=== PATIENT | male | born 1955 | race Caucasian/White ===

== ENCOUNTER 2025-05-09 10:54 | Emergency (ER) | payer MEDICARE, MEDICAID, SELFPAY ==
--- OUTSIDE RECORDS SUMMARY | 2024-11-29 08:00 | XMS_ITS ---
Author Organization [facility] Servic es Address [address] [place] [address] Care Team Providers Care Padder Cushion Name Role Phone Dillon Gerald Primary Care Provider [phone] Denita Arias Unavailable [phone] REASON FOR VISIT 2 week f/u,DM CHECK Encounters Encounter Location Date Provider Diagnosis [facility] Services [address] [place] [address] 11/29/2024 Denita Arias Plan Of Treatment Next Appt Details Provider Name:Gerald Carranza, 06/08/2025 09:30:00 AM, [address] [place], [address], Progress Notes * PRAFUL ZENGOB:1955 (69 yo M)Acc No.[id number]:11/29/2024 Progress Notes Patient: BRITT SEGURA :?DENITA BLANCO DODOB:1955???Age:69 Y???Sex: MaleDate:11/29/2024Phone:[phone]:[address] BU-[id number]:Gerald Carranza Subjective: * Chief Complaints: * 2 week f/u,DM CHECK Billing Information: * Procedure Codes: * Electronic signature of Denita Arias DO on 05/09/2025 at 12:21 PM ESTSign off status: Pending * Provider: Carrol BLANCO, DO Date: 0 11/29/2024 Generated for Printing/Faxing/eTransmitting on:?05/09/2025 12:21 PM EST
--- OUTSIDE RECORDS SUMMARY | 2024-12-14 08:30 | XMS_ITS ---
Author Organization [facility] Servic es Address [address] [place] [address] Care Team Providers Care Refrigerated National Truck Driver Name Role Phone Dillon Gerald Primary Care Provider [phone] Denita Arias Unavailable [phone] REASON FOR VISIT HOSP f/u Encounters Encounter Location Date Provider Diagnosis [facility] Services [address] [place] [address] 12/14/2024 Denita Arias Plan Of Treatment Next Appt Details Provider Name:Gerald Carranza, 06/08/2025 09:30:00 AM, [address] [place], [address], Progress Notes * PRAFUL ZENGOB:1955 (69 yo M)Acc No.[id number]:12/14/2024 Progress Note Patient: BRITT SEGURA :?DENITA BLANCO DODOB:1955???Age:69 Y???Sex: MaleDate:12/14/2024Phone:[phone]:[address] [place]-[id number]:Gerald Carranza Subjective: * Chief Complaints: * H OSP f/u * Electronic signature of Denita Arias DO on 05/09/2025 at 12:22 PM ESTSign off status: Pending * Provider: Carrol BLANCO DO Date: 0 12/14/2024 Generated for Printing/Faxing/eTransmitting on:?05/09/2025 12:22 PM EST
--- OUTSIDE RECORDS SUMMARY | 2024-12-23 04:00 | XMS_ITS ---
Author Organization [facility] Serv[facility] Address [address] [place] [address] Care Team Providers Care Contact Clerk Name Role Phone Gerald Carranza Primary Care Provider Denita Arias Unavailable [phone] REASON FOR VISIT DM recheck Medications Medication SIG (Take, Route, Frequency, Duration) Notes Start Date End Date Status Ezetimibe 10 MG Tablet TAKE ONE TABLET BY MOUTH DAILY ActiveHumaLOG KwikPen 100 UNIT/ML Solution Pen- units Subcutaneous three times a day with [...] 28 daysActiveInsulin Glargine Solostar 100 UNIT/ML Solution Pen-ozucdhwp67 units Subcutaneous daily ActiveNystatin 885800 UNIT/ML Suspension4 mL Mouth/Throat Four times a dayActive Olopatadine HCl 0.2 % Solution1 drop into each eye Ophthalmic Once a day; Duration: 30 days5ActivePen [place] 5/16 31G X 8 MM MiscellaneousUSE ONE [...] dayActive Encounters Encounter Location Date Provider Diagnosis [facility] Services [address] [place] [address] 12/23/2024 Denita Arias Plan Of Treatment Next Appt Details Provider Name:Gerald Carranza, 06/08/2025 09:30:00 AM, [address] [place], [address], Progress Notes * PRAFUL ZENGOB:1955 (69 yo M)Acc No.[id number]:12/23/2024 Progress Notes Patient: BRITT SEGURA :?DENITA FRANCIS DODOB:1955???Age:69 Y???Sex: MaleDate:12/23/2024Phone:[phone]:[address], [place]-[id number]:Gerald Carranza Subjective: * Chief Complaints: * D [...] Solution Pen-injector 25 units Subcutaneous daily Pen [place] 5/16 31G X 8 MM Miscellaneous USE ONE NEEDLE TO INJECT INSULIN ONCE DAILY Olopatadine HCl 0.2 % Solution 1 drop into each eye Ophthalmic Once a day Nystatin 947693 UNIT/ML Suspension 4 mL Mouth/Throat Four times [...] Pen-injector 25 units Subcutaneous daily Taking Pen [place] 5/16 31G X 8 MM Miscellaneous USE ONE NEEDLE TO INJECT INSULIN ONCE DAILY Taking Olopatadine HCl 0.2 % Solution 1 drop into each eye Ophthalmic Once a day Taking Nystatin 293063 UNIT/ML Suspension 4 mL Mouth/Throat Four times [...] * Provider: Carrol BLANCO DO Date: 0 12/23/2024 Generated for Printing/Faxing/eTransmitting on:?05/09/2025 12:21 PM EST
--- OUTSIDE RECORDS SUMMARY | 2025-01-05 04:00 | XMS_ITS ---
Author Organization [facility] [place] Servic es Address [address] [place] [address] Care Team Providers Care Lead Pressman Name Role Phone Barb Carranzay Primary Care Provider [phone] Denita Arias Unavailable [phone] REASON FOR VISIT KANNAN MARYJANE Escamilla Encounters Encounter Location Date Provider Diagnosis [facility] [place] Services [address] [place] [address] 01/05/2025 Gerald Carranza Plan Of Treatment Next Appt Details Provider Name:Gerald Carranza, 06/08/2025 09:30:00 AM, [address] [place], [address], Progress Notes * PRAFUL ZENGOB:1955 (69 yo M)Acc No.[id number]:01/05/2025 Progress Notes Patient: BRITT SEGURA :?Gerald Chewshantel DODOB:1955???Age:69 Y???Sex:Male Date:01/05/2025Phone:[phone]:[address] [place] [place]-[id number] Subjective: * Chief Complaints: * T OC MARYJANE Escamilla * Electronic signature of Gerald Carranza DO on 05/09/2025 at 12:21 PM ESTSign off status: Pending * Provider: Joceline Carranza DO Date: 0 01/05/2025 Generated for Printing/Faxing/eTransmitting on:?05/09/2025 12:21 PM EST
--- OUTSIDE RECORDS SUMMARY | 2025-05-08 08:30 | XMS_ITS ---
Author Organization [facility] Address [address] [place] [address] Care Team Providers Care Song Plugger Name Role Phone Gerald Carranza Primary Care Provider Denita Arias Unavailable [phone] Allergies Allergen (clinical drug ingredient) Drug/Non Drug Allergy documented on EMR Reaction Allergy Type Onset Date Status semaglutide Ozempic stomach upset Drug Allergy ActivegabapentinGabapentinUnknownDrug AllergyActivemetforminMetforminUnknownDrug AllergyActivesulfacetamideSulfacetamideUnknownDrug AllergyActive REASON FOR VISIT Tremors, SOB while walking, loss of leg control, A1C-tm, all 3 have been going on for a couple month, cut finger 1week AGO Medications Medication SIG (Take, Route, Frequency, Duration) Notes Start Date End Date Status Melatonin 3 MG Tablet 1 tablet at bedtim e as needed Orally Once a day; Duration: 30 days ActiveEzetimibe 10 MG TabletTAKE ONE TABLET BY MOUTH DAILYActiveAtorvastatin Calcium 80 MG Tablet1 tablet Orally Once a dayActiveHumaLOG KwikPen 100 UNIT/ML Solution Pen-[id number] units Subcutaneous three times a day with meals; Duration: 30 daysActiveJardiance 25 MG TabletTAKE 1 TABLET BY MOUTH DAILYActive Insulin Glargine Solostar 100 UNIT/ML Solution Pen-hfettweq12 units Subcutaneous dailyActivePen Ingomar 516 31G X 8 MM MiscellaneousUSE ONE NEEDLE TO INJECT INSULIN ONCE DAILY; Duration: 30 daysActiveIsosorbide Mononitrate ER 120 MG Tablet Extended Release 24 HourOral; Duration: 30 DaysActiveLantus SoloStar 100 UNIT/ML Solution Pen-rbcfkohn03 units Subcutaneous dailyActiveFreeStyle Nan 14 Day Sensor - Miscellaneous1 sensor; Duration: 28 daysActiveMetoprolol Tartrate 50 MG Tablet1 tablet with food Orally Twice a dayonce dailyActiveXarelto 20 MG Tablet1 tablet with food Orally Once a dayActiveAmiodarone HCl 200 MG Tablet1 tablet Orally twice dailyonce dailyActiveMetoclopramide HCl 10 MG Tablet1 tablet before meals Orally three times a day; Duration: 30 day(s)ActiveClopidogrel Bisulfate 75 MG TabletTAKE 1 TABLET BY MOUTH DAILY FOR 7 DAYS; Duration: 7 Not-Taking/PRNCephalexin 500 MG Capsule1 capsule Orally every 6 hrs; Duration: 10 day(s)5ActiveDoxycycline Hyclate 100 MG Capsule1 capsule Orally Once a day; Duration: 10 days5ActiveNystatin 617376 UNIT/ML Suspension4 mL Mouth/Throat Four times a dayNot-Taking/PRNVitamin B12 100 MCG Tabletas directed OrallyNot-Taking/PRNEsomeprazole Magnesium 40 MG Capsule Delayed Release1 capsule 1/2 to 1 hour before morning meal Orally twice a dayActiveFreeStyle Nan 2 Sensor - Miscellaneousup to 3 times a day; Duration: 28 daysActiveNitroglycerin 0.4 MG Tablet Sublingualas directed SublingualNot-Taking/PRNOlopatadine HCl 0.2 % Solution1 drop into each eye Ophthalmic Once a day; Duration: 30 days11/03/2024Not-Taking/PRNBlood Glucose Test Strips 333 - Stripas directed In Vitro In Vitro; Duration: 90 days Requesting refill for OneTouch Ultra Test [id number] Social History Tobacco Use: Social History Observation Description Date Details (start date - stop date) Never Smoker NA - NA Social History GeneralSocial InfoQuestionAnswerNotesTransition of Care:ER/UC/hospital since last office visit?NoSpecialist seen since last office visit?NoSubstance abuse/mental health issues of patient/familyPatient -DeniesAbility to understand healthcare/treatmentPatient:GoodSocial/Support Concerns:Patient:NoBehaviors affecting healthPoor/Risky Behaviors:Denies-Communication Barrier:Language Barrier?:NoDrug/Alcohol:Social InfoQuestionAnswerNotesAUDIT-C (Standard)Did you have a drink containing alcohol in the past year?WnSbwdyg2NqpcxfkcqywxszGforhjyw Tobacco Use:Social InfoQuestionAnswerNotesTobacco Control (Standard)Tobacco use: Nonsmoker Vital Signs Temperature 97.8 degrees Fahrenheit 05/08/20 25 Blood pressure systolic 121 mm Hg 05/08/20 25 Blood pressure diastolic 81 mm Hg 025 Heart Rate 89 /min 05/08/2025 Respiratory Rate 18 /min 05/08/2025 Height 66.5 in 05/08/2025 Weight 169 lbs 05/08/2025 BMI 26.87 kg/m2 05/08/2025 Oximetry 97 % 05/08/2025 Encounters Encounter Location Date Provider Diagnosis [facility] [address] [place] [address] 05/08/2025 Gerald Carranza Abscess of finger of right hand L02.511 Assessments Encounter Date Diagnosis (ICD Code) Assessment Notes Treatment Notes Treatment Clinical Notes Section Notes 05/08/2025 Abscess of finger of right hand (ICD-10 - L02.511) Plan Of Treatment Medication Medication Name Sig Start Date Stop Date Notes Cephalexin 500 MG Capsule 1 capsule Oral ly every 6 hrs; Duration: 10 day(s) 05/08/2025 05/18/2025 Doxycycline Hyclate 100 MG Capsule1 capsule Orally Once a day; Duration: 10 days Pending Test Test Name Order Date XR finger RT 2nd digit 05/08/2025 XR hand RT min 3V* 05/08/2025 Next Appt Details Provider Name:Gerald Carranza, 06/08/2025 09:30:00 AM, [address], [place], [address], History and Physical Notes * HPI (History of Present Illness) CategorySub-CategoryDetailNotesCategory NotesDepression ScreeningPHQ-2 (2015 Edition)Little interest or pleasure in doing things?: Not at allFeeling down, depressed, or hopeless?: Not at allTotal Score: 0Constitutional A1c 10.7 in November 20 A1c today 10.7 Insulin 40 Lantus + 10 Humalog generalzied weakness, coordination, no vertigo, feeling winded, out of breath walking 2 miles instead 6 coordination no med changes recently Dad had Parkinson's younger age diagnosed in 30s R eye blurred vision globally - 2-3 months no painful EOMI eye doctor appt due no resting tremors intention tremors holding plates right pointer finger wound DIP podiatry next month 22 Dec Romberg wobbly Rapid alternating motions heel sherman no finger to nose off with right handwriting tremor right handed NEURO referral PT referral? Increase lantus to 45 and short acting THREE TIMES daily not once Progress Notes * PRAFUL ZENGOB:1955 (69 yo M)Acc No.[id number]:05/08/2025 Progress Notes Patient: BRITT SEGURA :?JOANNE DowOB:1955???Age:69 Y???Sex:Male Date:05/08/2025Phone:[phone]:[id number], [id number] Subjective: * Chief Complaints: * T remors, SOB while walking, loss of leg control, H5S-xhCnd 3 have been going on for a couple monthcut finger 1week AGO * HPI: ???Depression Screening:?PHQ-2 (2015 Edition)?Little interest or pleasure in doing things? Not at all ?Feeling down, depressed, or hopeless??Not at all ?Total Score?0 ???Constitutional:?A1c 10.7 in November 20 A1c today 10.7 Insulin 40 Lantus + 10 Humalog generalzied weakness, coordination, no vertigo, feeling winded, out of breath? walking 2 miles instead 6 coordination no med changes recently Dad had Parkinson's younger age diagnosed in 30s R eye blurred vision globally - 2-3 months no painful EOMI eye doctor appt due no resting tremors intention tremors holding plates right pointer finger wound DIP podiatry next month 22 Dec Romberg wobbly Rapid alternating motions heel sherman no finger to nose off with right handwriting tremor right handed NEURO referral PT referral? Increase lantus to 45 and short acting THREE TIMES daily not once. 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 exploratory lap - no findings ? EGD 1989? tonsillectomy ? Heart cath w 2 stents jul 2012? Heart Cath with placement of 2 more stents. 2013? Heart Cath with stent placement 03/2018? BIOPSY OF THE THROAT 06/2019? Cataract extraction-OD 08/2020? Heart stent placed 10/2023? Heart cath 12/07/24? Surgical History verified.? * Hospitalization/Major Diagno stic Procedure: took wrong DM medication 2009? Atrial Fib. 09/24/2016? CAD, Angina 03/2018? a fib 04/21? A FIB 05/22? A-FIB 05/2024? Hospitalization Verified.? * Family History: D aughter(s): alive. S on(s): alive. F ather: 62 yrs, head/neck cancer - , diagnosed with Diabetes. M other: , diagnosed with Hypertension. 1 sister(s) - healthy. 1 son(s) , 1 daughter(s) - healthy. . F amily History Verified.. Son had Stage 4 esophageal CA with mets to lungs,liver & lymph nodes. * Social History: ???Drug/Alcohol:?AUDIT-C (Standard)?Did you have a drink containing alcohol in the past year??No ?Points?0 ?Interpretation?Negative ???General:?Transition of Care?ER/UC/hospital since last office visit??No ?Specialist seen since last office visit??No ?Behaviors affecting health?Poor/Risky Behaviors:?Denies- ?Substance abuse/mental health issues of patient/family?Patient -?Denies ?Social/Support Concerns?Patient:?No ?Ability to understand healthcare/treatment?Patient:?Good ?Communication Barrier?Language Barrier?:?No ???Tobacco Use:?Tobacco Control (Standard)?Tobacco use:?Nonsmoker ???Social History Verified. * Medications: T akingEsomeprazole Magnesium 40 MG Capsule Delayed Release 1 capsule 1/2 to 1 hour before morning meal Orally twice a day Metoprolol Tartrate 50 MG Tablet 1 tablet with food Orally Twice a day , Notes to Pharmacist: once dailyXarelto 20 MG Tablet 1 tablet with food Orally Once a day Amiodarone HCl 200 MG Tablet 1 tablet Orally twice daily , Notes to Pharmacist: once dailyMetoclopramide HCl 10 MG Tablet 1 tablet before meals Orally three times a day Insulin Glargine Solostar 100 UNIT/ML Solution Pen-injector 25 units Subcutaneous daily Pen Ingomar 5/16 31G X 8 MM Miscellaneous USE ONE NEEDLE TO INJECT INSULIN ONCE DAILY Isosorbide Mononitrate ER 120 MG Tablet Extended Release 24 Hour Oral Lantus SoloStar 100 UNIT/ML Solution Pen-injector 35 units Subcutaneous daily FreeStyle Nan 14 Day Sensor - Miscellaneous 1 sensor Melatonin 3 MG Tablet 1 tablet at bedtime as needed Orally Once a day Ezetimibe 10 MG Tablet TAKE ONE TABLET BY MOUTH DAILY Atorvastatin Calcium 80 MG Tablet 1 tablet Orally Once a day HumaLOG KwikPen 100 UNIT/ML Solution Pen-injector 10 units Subcutaneous three times a day with meals Jardiance 25 MG Tablet TAKE 1 TABLET BY MOUTH DAILY Blood Glucose Test Strips 333 - Strip as directed In Vitro In Vitro , Notes to Pharmacist: Requesting refill for OneTouch Ultra Test StripsFreeStyle Nan 2 Sensor - Miscellaneous up to 3 times a day Taking Esomeprazole Magnesium 40 MG Capsule Delayed Release 1 capsule 1/2 to 1 hour before morning meal Orally twice a day Taking Metoprolol Tartrate 50 MG Tablet 1 tablet with food Orally Twice a day , Notes to Pharmacist: once dailyTaking Xarelto 20 MG Tablet 1 tablet with food Orally Once a day Taking Amiodarone HCl 200 MG Tablet 1 tablet Orally twice daily , Notes to Pharmacist: once dailyTaking Metoclopramide HCl 10 MG Tablet 1 tablet before meals Orally three times a day Taking Insulin Glargine Solostar 100 UNIT/ML Solution Pen-injector 25 units Subcutaneous daily Taking Pen Ingomar 5/16 31G X 8 MM Miscellaneous USE ONE NEEDLE TO INJECT INSULIN ONCE DAILY Taking Isosorbide Mononitrate ER 120 MG Tablet Extended Release 24 Hour Oral Taking Lantus SoloStar 100 UNIT/ML Solution Pen-injector 35 units Subcutaneous daily Taking FreeStyle Nan 14 Day Sensor - [...] three times a day with meals Taking Jardiance 25 MG Tablet TAKE 1 TABLET BY MOUTH DAILY Taking Blood Glucose Test Strips 333 - Strip as directed In Vitro In Vitro , Notes to Pharmacist: Requesting refill for OneTouch Ultra Test StripsTaking FreeStyle Nan 2 Sensor - Miscellaneous up to 3 times a day Not-Taking/PRNVitamin B12 100 MCG Tablet as directed Orally Clopidogrel Bisulfate 75 MG Tablet TAKE 1 TABLET BY MOUTH DAILY FOR 7 DAYS Nitroglycerin 0.4 MG Tablet Sublingual as directed Sublingual Olopatadine HCl 0.2 % Solution 1 drop into each eye Ophthalmic Once a day Nystatin 813965 UNIT/ML Suspension 4 mL Mouth/Throat Four times a day Medication List reviewed and reconciled with the patientNot-Taking/PRN Vitamin B12 100 MCG Tablet as directed Orally Not-Taking/PRN Clopidogrel Bisulfate 75 MG Tablet TAKE 1 TABLET BY MOUTH DAILY FOR 7 DAYS Not-Taking/PRN Nitroglycerin 0.4 MG Tablet Sublingual as directed Sublingual Not-Taking/PRN Olopatadine HCl 0.2 % Solution 1 drop into each eye Ophthalmic Once a day Not-Taking/PRN Nystatin 289238 UNIT/ML Suspension 4 mL Mouth/Throat Four times a day Medication List reviewed and reconciled with the patient * Allergies: S ulfacetamide: AllergyMetformin: Side EffectsGabapentin: AllergyOzempic: stomach upset - Side EffectsyesAllergies Verified. Objective: * Vitals: H t: 66.5 in, Wt: 169 lbs, BMI:26.87Index, Temp: 97.8 F, BP: 121/81 mm Hg, SaO2: 97 %, HR: 89 /min, RR: 18 /min. Assessment: * Assessment: 1.?Abscess of finger of right hand - L02.511 (Primary)??? Plan: * Treatment: Start Cephalexin Capsule, 500 MG, 1 capsule, Orally, every 6 hrs, 10 day(s), 40;?Start Doxycycline Hyclate Capsule, 100 MG, 1 capsule, Orally, Once a day, 10 days, 10.?Imaging: XR finger RT 2nd digit ?Imaging: XR hand RT min 3V* * Preventive Medicine: ??COUNSELING:?Communication to patient:?Counseling for Nutrition Provided?Yes ?Counseling for Physical Activity Provided?Yes ?BMI management provided?Yes ?Nutrition/Dietary Counseling provided Yes * Electronic signature of Gerald Carranza DO on 05/09/2025 at 12:22 PM ESTSign off status: Pending * Provider: Joceline Carranza DO Date: 07/08/2024 Generated for Printing/Faxing/eTransmitting on:?05/09/2025 12:22 PM EST
[2025-05-09 11:16] VITALS: BP 128/94; PULSE 82; TEMP 36.7; O2SAT 99; BMI 27.5
--- OUTSIDE RECORDS SUMMARY | 2025-05-09 12:22 | XMS_ITS | Clinical Summary ---
Author Organization [facility] Address [address] [place] [address] Phone Care Team Providers Care Associate Programmer Name Role Phone Bethanie Meza MD Unavailable Denita Escamilla Unavailable Generic Provider, No Assigned Pcp Primary Car e Provider Unavailable Allergies Active AllergyReactionsCriticalityNoted QapeYykboacaKywwkcwxjPtiok02/18/2024 nightmares KhnhyzuyfrItsvslr78/14/1366WmbomvrgmmxJoevc46/18/2024 nightmares MetforminDiarrhea,Adejtjg6309/09/2022Sulfa (Sulfonamide Antibiotics)Swelling, Rgibytm0010/12/2023 Medications MedicationSigDispense QuantityRefillsLast FilledStart DateEnd DateStatus empagliflozin (Jardiance) 25 mg Take 1 tablet (25 mg) by mouth once daily.Active metoclopramide (Reglan) 10 mg tablet Take 1 tablet (10 mg) by mouth 3 times a day.Active pantoprazole (ProtoNix) 40 mg EC tablet Take 1 tablet (40 mg) by mouth once daily in the morning. Take before meals. Do not crush, chew, orsplit.Active nitroglycerin (Nitrostat) 0.4 mg SL tablet Indications:Angina pectorisPlace 1 tablet (0.4 mg) under the tongue every 5 minutes if needed for chest pain. May repeat dose every 5 minutes for up to 3 doses total. 100 tablet ctive insulin glargine (Lantus U-100 Insulin) 100 unit/mL injection Inject 100 Units under the skin once daily at bedtime.Active dilTIAZem CD (Cardizem CD) 180 mg 24 hr capsule Indications:Coronary artery disease of [place] artery of [place] heart with stable angina pectorisTake 1 capsule (180 mg) by mouth once daily. 90 capsule ctive ezetimibe (Zetia) 10 mg tablet Indications:Mixed hyperlipidemiaTake 1 tablet (10 mg) by mouth once daily. 90 tablet ctive metoprolol succinate XL (Toprol-XL) 25 mg 24 hr tablet Indications:Essential hypertensionTake 1 tablet (25 mg) by mouth once daily. 5Active HumaLOG KwikPen Insulin 100 unit/mL pen Indications:Coronary artery disease involving coronary bypass graft of [place] heart with unstable angina pectoris (Multi)5Active isosorbide mononitrate ER (Imdur) 60 mg 24 hr tablet Indications:Unstable angina (Multi)Take 1 tablet (60 mg) by mouth once daily. Do not crush or chew. 90 tablet ctive aspirin 81 mg chewable tablet Indications:Coronary artery disease involving coronary bypass graft of [place] heart with unstable angina pectoris (Multi)Chew and swallow 1 tablet (81 mg) once daily. 90 tablet ctive cyanocobalamin (Vitamin B-12) 100 mcg tablet Take by mouth. as directedActive chlorhexidine (Peridex) 0.12 % solution Use 15 mL in the mouth or throat if needed for wound care.Active amiodarone (Pacerone) 200 mg tablet Indications:High risk medication use,Atrial fibrillation, currently in sinus rhythmTake 1 tablet (200 mg) by mouth once daily. 90 tablet ctive atorvastatin (Lipitor) 80 mg tablet Indications:Mixed hyperlipidemiaTake 1 tablet (80 mg) by mouth once daily. 90 tablet ctive rivaroxaban (Xarelto) 20 mg tablet Indications:Atrial fibrillation, currently in sinus rhythmTake 1 tablet (20 mg) by mouth once daily in the evening. Take with meals. Take with food. 90 tablet ctive Active Problems ProblemNoted DateDiagnosed DateAtherosclerotic heart disease of [place] coronary artery without angina crwcslec19/18/2025Rash due to ytbayqd0602/13/2025Encounter to discuss test gxlgxoa4601/30/2025MI 28.0-28.9,adult01/30/2025Maculopapular rash 01/30/2025Hospital discharge follow-up01/30/20253155Vbqkoantsxzjtt55/23/2025bnormal electrocardiogram (ECG) (EKG)11/18/2024trial fibrillation, currently in sinus nhlyot9307/29/2024MI 29.0-29.9,adult05/20/2024High risk medication use05/20/2024 Family history of atrial ucpmxdb3105/20/2024Medication course tqezeaq8005/20/2024 Atrial ztgutpl8105/20/2024oronary artery disease of [place] artery of [place] heart with stable angina djakfvhq85/18/2024 Assessment & Plan (01/29/2024 2:29 PM EDT): October 23, 2023 elective cardiac cath and subsequent coronary intervention PLB PCI/Gamerco 3.0 x 18 mm Mid RCA 50% Distal RCA patent stent Mid LAD questionable stent with 30-40% ISR Ostial/proximal diagonal 50% Circumflex patent stent OM2 75% Current daily activity greater than 4 METS. Presents to the office today where he reports finally back to normal after recent PCI. His prior complaints of fatigability and chest pain have abated. Assessment & Plan (12/16/2023 1:41 PM EDT): October 23, 2023 elective cardiac cath and subsequent coronary intervention PLB PCI/Gamerco 3.0 x 18 mm Mid RCA 50% Distal RCA patent stent Mid LAD questionable stent with 30-40% ISR Ostial/proximal diagonal 50% Circumflex patent stent OM2 75% Current daily activity greater than 4 METS. Continues to report fatigability and exertional chest pain after ambulating one quarter of a mile -although then later in the office visit reports he is walking 2 miles a day without any type of problem. Leg weakness, bbjhfqilc71/18/2024 Assessment & Plan (12/16/2023 1:42 PM EDT): Reports progressive worsening leg weakness, no real true claudication symptoms. No open wounds Figueroa's esophagus without itohwezsy46/27/2024resence of stent in coronary dexjrc2610/24/2023Shortness of wbnpts1710/24/2023Never smoked kdwwghi4610/15/2023 Etjbnbeoebdocu92/15/2024 Assessment & Plan (01/29/2024 2:28 PM EDT): Tolerating high intensity statin Assessment & Plan (12/16/2023 1:38 PM EDT): Tolerating high intensity statin Angina, class III10/12/2023 Assessment & Plan (12/16/2023 1:39 PM EDT): Continues with exertional chest pain symptoms after walking one quarter of a mile, is not utilizingnitroglycerin. Essential vemykvkvlafq33/15/2024 Assessment & Plan (01/29/2024 2:28 PM EDT): Optimal in office Assessment & Plan (12/16/2023 1:39 PM EDT): Optimal in office Type 2 diabetes mellitus, without long-term current use of wufsxdj9310/12/2023 Assessment & Plan (12/16/2023 1:41 PM EDT): On statin/ARB Reports most recent hemoglobin A1c 8 something Aortic valve puhefxyt44/15/2024Unstable hzmcjd8210/12/2023 Resolved Problems ProblemNoted DateDiagnosed DateResolved DateBMI 31.0-31.9,adult10/15/2023 05/20/2024 Assessment & Plan (01/29/2024 2:29 PM EDT): Reviewed the merits of healthy lifestyle choices on overall cardiovascular health. Assessment & Plan (12/16/2023 1:41 PM EDT): Reviewed the merits of healthy lifestyle choices on overall cardiovascular health. Angina pectoris, ugwisbzi77 Encounters DateTypeDepartmentCare WzflFupvtcgeuix66/28/2025[address] [place] [address] Yvrose Hogue LPN cardiac rehab02/13/2025 9:00 AM EDTOffice Visit [facility] [address] [facility] [address] [place] [address] Zahida Stern MD Coronary artery disease of [place] artery of [place] heart with stable angina pectoris (Primary Dx); Rash due to allergy; High risk medication use; Atrial fibrillation, currently in sinus rhythm; Anticoagulated; Mixed hyperlipidemia; Type 2 diabetes mellitus with other specified complication, without long-term current use of insulin (Multi); BMI 28.0-28.9,adult; Never smoked tobacco; Atherosclerosis of [place] coronary artery of [place] heart without angina pectoris Discharge Disposition: Home02/13/2025Travelfrom Last 3 Months Immunizations ImmunizationAdministration DatesNext DueFlu vaccine, trivalent, preservative free, HIGH-DOSE, age 65y+ (Fluzone)04/18/2024Influenza, injectable, quadrivalent 2Pneumococcal polysaccharide vaccine, 23-valent, age 2 years and older (PNEUMOVAX 23)06/29/2018 Family History Medical HistoryRelationNameCommentsNo Known ProblemsBrotherHeart attackFatherNo Known ProblemsMotherNo Known ProblemsSisterRelationNameStatusCommentsBrother FatherMotherSister Social History Tobacco UseTypesPacks/DayYears UsedDateSmoking Tobacco: NeverSmokeless Tobacco: Never Tobacco Cessation:Counseling Given: Yes Alcohol UseStandard Drinks/WeekCommentsYes0 (1 standard drink = 0.6 oz pure alcohol)occasionallySex and Gender InformationValueDate RecordedSex Assigned at BirthNot on fileLegal SffZzdz64/26/2022 6:36 PM ESTGender IdentityNot on file Sexual OrientationNot on file Last Filed Vital Signs Vital SignReadingTime TakenCommentsBlood Dkpvwblo739/6808 9:53 AM EDT Aesey955602/13/2025 9:53 AM HSAHuynoskmzmk91.9 ??C (96.6 ??F)10/23/2023 9:09 AM EDTRespiratory Unir660910/23/2023 12:50 PM EDTOxygen Qeyzjunzlc08%10/23/2023 12:50 PM EDTInhaled Oxygen Concentration--Qwnalp28.6 kg (171 lb)02/13/2025 9:53 AM EDT Fgjyux413.1 cm (5' 5 )02/13/2025 9:53 AM EDTBody Mass Index28.46002/13/2025 9:53 AM EDT Plan of Treatment DateTypeDepartmentCare Team (Latest Contact Info)Pcqxcdgfmwn42/19/2026 9:45 AM ESTOffice Visit [facility] [address] [facility] [address] [place] [address] Zahida Stern MD [address] [facility] [address] [place], [place] [id number] Health MaintenanceDue DateLast DoneCommentsCT Hpdakrhqxjwr57/29/1954iabetes: Hemoglobin A1C1953iabetes: Urine Protein Fsbwgmvtk67/29/1954FIT-DNA (Cologuard)1953FIT1953Lipid Panel1953Medicare Annual Wellness Visit (AWV)1955 3399Brehksygrvvpv63/29/1954TSH Level1953MMR Vaccines (1 of 1 - Standard series)1954Diabetes: Retinopathy Nspmzohml10/29/1964 Hepatitis C Janwjipvd62/29/1972DTaP/Tdap/Td Vaccines (1 - Tdap)1975RSV High Risk: (Elderly (60+) or Population) (1 - Risk 50-74 years 1-dose series)2003Zoster Vaccines (1 of 2)2003Pneumococcal Vaccine (2 of 2 - PCV)/06/2018Influenza Vaccine (#1)/, 06/25/2022, 05/10/2018, Additional history existsCOVID-19 Vaccine ( - season), 06/12/2021, 10/20/2020, Additional history exists EGD03/05/805928/10/2024, 10/17/20229108Fbnniscekgy24/06/203212/11/2021, 06/03/2022 Colorectal Cancer Kkjvoibnz64/06/2032Irritable Bowel SyndromeDiscontinued 06/03/2022HIB VaccinesAged OutNo longer eligible based on patient's age to complete this topicHPV VaccinesAged OutNo longer eligible based on patient's age to complete this topicHepatitis A VaccinesAged OutNo longer eligible based on patient's age to complete this topicHepatitis B VaccinesAged OutNo longer eligible based on patient's age to complete this topicIPV VaccinesAged OutNo longer eligible based on patient's age to complete this topicMeningococcal VaccineAged OutNo longer eligible based on patient's age to complete this topic Rotavirus VaccinesAged OutNo longer eligible based on patient's age to complete this topic Medical Devices ImplantedTypeAreaManufacturerDevice IdentifierShelf Expiration DateModel / Serial / LotStent, Jim [place] Herve, 3.00 X 18rx - [id number] Implanted:Qty: 1 on 10/23/2023 by Zahida Stern MD at [facility] StentN/A: CoronaryMEDTRONIC [id number] / / [id number] Procedures Procedure NamePriorityDate/TimeAssociated DiagnosisCommentsECG 12-LEADRoutine 02/13/2025 9:32 AM EDT Atrial fibrillation, currently in sinus rhythm from Last 3 Months Results * ECG 12 Lead (02/13/2025 9:32 AM EDT)Specimen (Source)Anatomical Location / LateralityCollection Method / VolumeCollection TimeReceived Time Narrative CPACS - 02/14/2025 12:20 PM EDT Normal sinus rhythm abnormal R wave progression, anterior myocardial infarction pattern, normal intervals. ??No change compared to the EKG from 11/18/2024 Authorizing ProviderResult TypeResult StatusGeethrosalba BURCIAGA ORDERABLESFinal ResultPerforming OrganizationAddressCity/State/ZIP CodePhone Number CPACS from Last 3 Months Insurance Advance Directives For more information, please contact: [phone] (Available ) * Full Code (Latest Code Status on File) Date ActivatedDate InactivatedComments10/23/2023 8:54 AMQuestionAnswerComments Plan of Care:* Code Status Discussion Not Completed Decision Maker:* Provider Rationale:* Patient condition does not warrant discussion Care Teams Team MemberRelationshipSpecialtyStart DateEnd Date Generic Provider, No Assigned Pcp, [place] [address] PCP - GeneralGeneral Practice11/18/24 Bethanie Meza MD [address] [facility] [address], [address] [place] [address] CardiologistElectrophysiology07/22/24 Denita Escamilla [address] [place] [address] Referring PhysicianFamily Medicine07/25/24
--- OUTSIDE RECORDS SUMMARY | 2025-05-09 12:22 | XMS_ITS | Clinical Summary ---
Author Organization [facility] Address [facility] [place] [address] Care Team Providers Care Awake Overnight Counselor Name Role Phone Orville Friedman DO Primary Care Provider [phone] Sherice [place](Historical) Unavailable + Lavonne Sarabia MD Unavailable [phone] Denita Escamilla DO Unavailable [phone] Allergies Active AllergyReactionsCriticalityNoted DateCommentsSulfa (Sulfonamide Antibiotics)Rwnuqgto38/01/2015 blew up like a balloon Medications MedicationSigDispense QuantityRefillsLast FilledStart DateEnd DateStatus Fenofibrate (LOFIBRA) 160 mg tablet Take 1 tablet by mouth once daily.ctive aspirin, enteric coated (ASPIR-LOW) 81 mg EC tablet Take 1 tablet by mouth once daily.ctive Omeprazole (PRILOSEC) 40 mg capsule Take 1 capsule by mouth once daily.ctive losartan (COZAAR) 100 mg tablet Take 1 tablet by mouth once daily.ctive metFORMIN (GLUCOPHAGE) 500 mg tablet Take 1 tablet by mouth twice daily.ctive empagliflozin (JARDIANCE) 25 mg tablet Take 1 tablet by mouth once daily.09/01/2019Active olmesartan (BENICAR) 20 mg tablet Take 20 mg by mouth once daily.Active Active Problems ProblemNoted DateDiagnosed DatePatellofemoral arthritis of right knee02/29/2020 Closed displaced bimalleolar fracture of right lower leg with routine healing 03/18/2016Closed right ankle ppowjhwq42/10/2016Strain of right knee and leg 12/07/2015Intradural mass12/07/20155786Rpegelrrdiey72/01/2015SHD (arteriosclerotic heart disease)09/27/2014Type II or unspecified type diabetes mellitus with other specified manifestations, ampostwijenh67/01/5574Pdkchypewboakdkkmzav52/01/2015 Difmdwndbxmz58/01/7850Muzwvtf84/01/2015Diabetes mellitusGERD (gastroesophageal reflux disease)Former smoker Overview (12/07/2015): smoked cigars rarely Family History Medical HistoryRelationCommentsCancerFatherdied at age 62HypertensionFatherCHF [Other]Motherdied at age 95RelationStatusCommentsFatherMother Social History Tobacco UseTypesPacks/DayYears UsedDateSmoking Tobacco: FormerCigars Tobacco Cessation:Counseling Given: Not Answered Comments:cigar smoking on occasion Alcohol UseStandard Drinks/WeekCommentsYes0 (1 standard drink = 0.6 oz pure alcohol)socialArea Deprivation IndexAnswerDate RecordedNational Score (1-100), lower number is lower qhnw168903/04/2023State Score (1-10), lower number is lower ouje9193Data from: https://www.neighborhoodatlas.medicine.[facility].edu/. 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 businessNot on fileNot on fileNot on file Last Filed Vital Signs Vital SignReadingTime TakenCommentsBlood Wjoukpbq498/6606/16/2023 10:50 AM EST Wnoup439406/16/2023 10:50 AM VRDNzguhxoeegv41.5 ??C (97.7 ??F)06/16/2023 9:41 AM ESTRespiratory Zjov798408/17/2022 10:50 AM ESTOxygen Jhmcoelptb92%06/16/2023 10:50 AM ESTInhaled Oxygen Concentration--Teevws64.4 kg (175 lb)06/16/2023 9:41 AM PAGLuiytj627.1 cm (5' 5 )06/16/2023 9:41 AM ESTBody Mass Index29.12108/17/2022 9:41 AM EST Plan of Treatment Health MaintenanceDue DateLast DoneCommentsAbdominal Aortic Aneurysm Screening 1953 8398GoI4J94/29/1959Diabetic Foot Exam1963Dilated Retinal Exam 1963Urine Albumin:Creatinine Ratio1963Annual PCP Team Chronic Disease Visit1971Anxiety Lgcxymcwx91/29/1972Depression Dldwfjpsd40/29/1972 Hepatitis C Ockzaqeyj64/29/1972LDL Cgounqtplyw34/29/1972DTaP,Tdap,Td Vaccine (1 - Tdap)1972CT Osksepeqqfyv03/29/1999Cologuard (FIT-DNA)1998 Tqukfwzzkdm72/29/1999Colorectal Cancer Kkcnjczaw26/29/1999Fecal Occult Blood 07/27/19980103Ohkuzoteexieg79/29/1999Shingrix Vaccine (1 of 2)2003RSV Vaccine (1 - Risk 60-74 years 1-dose series)2013Pneumococcal Vaccine: 50+ (2 of 2 - PCV)Advance Directive Hggatsmnlb69/01/2025Medicare Advantage Annual Wellness Visit5Covid-19 Vaccine ( - 2024- season) 5108/13/2020, 10/20/2020, 09/22/2020Influenza Vaccine (#1)2025 06/25/2022, 05/10/2018, 04/10/2016 Insurance Care Teams Team MemberRelationshipSpecialtyStart DateEnd Orville Friedman DO PCP - GeneralFamily Medicine11/18/15 Sherice Washington(Historical)MD ReferringFamily Medicine11/26/18 Lavonne Sarabia MD ReferringFamily Medicine02/16/20 Denita Escamilla DO [address] [place] [address] ReferringFamily Medicine02/09/23
--- OUTSIDE RECORDS SUMMARY | 2025-05-09 12:22 | XMS_ITS | Clinical Summary ---
Author Organization [facility] Address [address] [place] [address] Care Team Providers Care Brake Operator Helper Name Role Phone Orville Friedman DO Primary Care Provider [phone] Allergies Active AllergyReactionsCriticalityNoted ZwjtTectgedxSamhbvokjuPdryvia06/13/2023 BehfuqoqoSfpioqh26/13/2023Sulfa RltwqvdmhmcApeyStg95/18/2023 Medications MedicationSigDispense QuantityRefillsLast FilledStart DateEnd DateStatus atorvastatin (Lipitor) 80 MG tablet Take 80 mg by mouth 1 (one) time each day at the same time.Active diclofenac sodium 1 % gel Apply 2 g topically in the morning and 2 g at noon and 2 g in the evening and 2 g before bedtime.09/29/2022ctive dilTIAZem CD (Cartia XT) 120 MG 24 hr capsule Take 1 capsule by mouth 1 (one) time each day at the same time.Active doxycycline (Vibramycin) 100 MG capsule Take 100 mg by mouth in the morning.12/17/2022ctive Jardiance 25 MG Take 25 mg by mouth in the morning.12/21/2022ctive escitalopram (Lexapro) 10 MG tablet Take 10 mg by mouth 1 (one) time each day at the same time.Active ezetimibe (Zetia) 10 MG tablet Take 10 mg by mouth 1 (one) time each day at the same time.Active hydroCHLOROthiazide (HYDRODiuril) 25 MG tablet Take 25 mg by mouth 1 (one) time each day at the same time.Active Lantus 100 UNIT/ML injection Inject 100 Units under the skin 1 (one) time each day at the same time.Active losartan (Cozaar) 100 MG tablet Take 100 mg by mouth 1 (one) time each day at the same time.Active metoprolol tartrate (Lopressor) 50 MG tablet Take 50 mg by mouth every 12 (twelve) hours.Active metoclopramide (Reglan) 10 MG tablet every 8 (eight) hours.Active olmesartan (BENIcar) 20 MG tablet 1 (one) time each day at the same time.Active ondansetron (Zofran) 4 MG tablet 1 tabletActive pantoprazole (ProtoNix) 40 MG EC tablet Take 1 tablet by mouth in the morning.Active pioglitazone (Actos) 30 MG tablet Take 1 tablet by mouth in the morning.Active Ozempic, 2 MG/DOSE, 8 MG/3ML solution pen-injector 12/20/2022ctive busPIRone (Buspar) 7.5 MG tablet every 12 (twelve) hours08/10/2023ctive Continuous Blood Gluc Sensor (FreeStyle Nan 2 Sensor) [facility] [place] 08/10/2023ctive hydrOXYzine HCl (Atarax) 25 MG tablet 1 tablet as needed at bedtime Orally for 30 days08/10/2023ctive tacrolimus (Protopic) 0.03 % ointment Indications:Flexural atopic dermatitisApply topically in the morning and before bedtime. Apply to the face. 60 g ctive Active Problems No known active problems Resolved Problems ProblemNoted DateDiagnosed DateResolved DateAcquired hallux kqnnda8503/25/2023 03/25/2023trial ajchnnfrsvmk95arrett's hboyrhjsg90/27/2023 03/25/2023lindness of left eyehange in bowel habits hanges in skin csnnrel68hronic oszqltjoruvs10hronic hqkihkva35iabetes lwsqrlum01iabetic mszyunnapu75iabetic peripheral neuropathy associated with type 2 diabetes enchdgug72/27/2023 03/25/20230167Rvubvznxe31Former vidqwk72 Overview (03/25/2023): smoked cigars rarely Gastroesophageal reflux gtbspzv61astroparesis03/25/2023 03/25/2023eneralized anxiety sckxbabo57Insomnia03/25/2023 03/25/2023Long term current use of nxigkia22Memory impairment 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 bimalleolar fracture of right lower leg with routine tikldss13 Intradural massrteriosclerosis of coronary wgyjti0209/27/2014 03/25/20236373Mccitrdtglkt88Essential rakuegyrtdnr63/01/2015 03/25/20230056Zwxndku41 Encounters DateTypeDepartmentCare KgfgFxuwnomnglk60/30/2025 9:20 AM EDTOffice Visit [facility] [address] [place] [address] Ifeanyi Norris DPM Capsulitis of metatarsophalangeal (MTP) joint of right foot (Primary Dx); Metatarsal deformity, right; Acquired deformity of right toe; Plantar plate injury, right, initial encounter; Diabetes mellitus due to underlying condition with diabetic polyneuropathy, unspecified whether care home insulin use (HCC); Pain due to onychomycosis of toenails of both feet03/28/2025amboo flowsheet [facility] [address] [place] [address] Ifeanyi Norris DPM 03/23/2025 9:20 AM EDTOffice Visit [facility] [address] [place] [address] Simon Butler MD Xerosis cutis (Primary Dx); Flexural atopic dermatitis; Chronic eikinpip06/25/2025amboo flowsheet [facility] [address] [place] [address] Simon Butler MD 03/23/20251372Mssbek89/28/2025 9:00 AM EDTOffice Visit [facility] [address] [place] [address] Simon Butler MD Flexural atopic dermatitis (Primary Dx); Chronic zawwmwlm60/28/2025amboo flowsheet [facility] [address] [place] [address] Simon Butler MD 02/23/2025Travelfrom Last 3 Months Family History Medical HistoryRelationNameCommentsHeart diseaseFatherHypertensionMotherRelation NameStatusCommentsFatherDeceasedMotherDeceased Social History Tobacco UseTypesPacks/DayYears UsedDateSmoking Tobacco: NeverSmokeless Tobacco: Never Tobacco Cessation:Counseling Given: Yes Alcohol UseStandard Drinks/WeekCommentsYes0 (1 standard drink = 0.6 oz pure alcohol)caffeine intake:soda popSex and Gender InformationValueDate RecordedSex Assigned at BirthNot on fileLegal EkcTdqj1709/10/2022 6:48 PM EDTGender Identity Not on fileSexual OrientationNot on file Last Filed Vital Signs Vital SignReadingTime TakenCommentsBlood Bhwmydge682/8009 3:23 PM EDT Gnjue1604 3:23 PM DEAAkygkxwqrxh21.2 ??C (97.1 ??F)08/06/2023 10:42 AM ESTRespiratory Dzlm316503/28/2025 9:14 AM EDTOxygen Saturation--Inhaled Oxygen Concentration--Gpwhmd47.5 kg (173 lb)03/28/2025 9:14 AM IEMDrygcr744.1 cm (5' 5 )03/28/2025 9:14 AM EDTBody Mass Index28.7903/28/2025 9:14 AM EDT Plan of Treatment DateTypeDepartmentCare Team (Latest Contact Info)Qjfaxexqaba50/17/2025 9:40 AM ESTOffice Visit [facility] [address] [place] [address] Simon Butler MD [address] [place] [address] 06/20/2025 9:00 AM ESTOffice Visit [facility] [address] [place] [phone] Ifeanyi Norris DPM [address] [facility] [address] [place] [address] Health MaintenanceDue DateLast DoneCommentsCT Mkxrqivnoqet63/29/1954FIT-DNA 1953FIT1953FOBT1953Bpikylczgenkw88/29/1954neumococcal Vaccine: 65+ Years (2 of 2 - PCV)/06/2018COVID-19 Vaccine ( season)/, 06/12/2021, 10/20/2020, Additional history existsInfluenza Vaccine (#1)/, 06/25/2022, 05/10/2018, Additional history feancgCjhisicvska27/06/203212/2Colorectal Cancer Tlaxthegx73/06/2032 Procedures Procedure NamePriorityDate/TimeAssociated DiagnosisCommentsCOLONOSCOPYRoutine 06/03/2022 12:00 PM EST Other constipation Personal history of colonic polyps Change in bowel habit from Last 3 Months or Most Recently Relevant to Health Maintenance Results * Colonoscopy (06/03/2022 12:00 PM EST)Anatomical RegionLateralityModality EndoscopySpecimen (Source)Anatomical Location / LateralityCollection Method / VolumeCollection TimeReceived Time12/11/2021 12:00 PM EST Narrative 06/03/2022 12:00 PM EST PERFORMED AT [facility] LOCATION:[id number] Procedure Note CONVERSION, GENERIC - 11/12/2022 PERFORMED AT [facility] LOCATION:[id number] Authorizing ProviderResult TypeResult StatusPaul Leandro Wilkins DOENDOSCOPY PROCEDURE ORDERABLESFinal Result from Last 3 Months or Most Recently Relevant to Health Maintenance Insurance Care Teams Team MemberRelationshipSpecialtyStart DateEnd Date Orville Friedman DO [address] [place] [address] [facility]01/13/23
--- OUTSIDE RECORDS SUMMARY | 2025-05-09 12:22 | XMS_ITS | Patient Health Record ---
Author Organization [facility] Address [address] [place] [address] Care Team Providers Care Solution Designer Name Role Phone Gerald Carranza Primary Care Provider [phone] Denita Arias Unavailable [phone] Diego Saldana Unavailable [phone] Allergies Allergen (clinical drug ingredient) Drug/Non Drug Allergy documented on EMR Reaction Allergy Type Onset Date Status semaglutide Ozempic stomach upset Drug Allergy ActivegabapentinGabapentinUnknownDrug AllergyActivemetforminMetforminUnknownDrug AllergyActivesulfacetamideSulfacetamideUnknownDrug AllergyActive Results Component Value Reference Range Flag Notes MicroAlb Creat Ratio,U Reviewed date:11/15/2024 08:45:30 PM Interpretation: Performing Lab:, [facility], [address] Notes/Report: Reason for Exam Type 2 diabetes mellitus with unspecified complications Microalbumin, Urine 1.5 0.0-1.8 mg/dL N Creatinine, Urine (Random)30.00No reference range established Microalbumin/Creatinine Ratio50.00.0-30.0 mg/gH 30-300 mg/g indicates an increased risk for diabetic nephropathy. Greater than 300 mg/g is consistent with clinical nephropathy. (Am. J. Kidney Disease 1995, 25:107) A1C with Estimated Average Glu Reviewed date:11/16/2024 10:48:33 AM Interpretation: Performing Lab:, [facility], [address] Notes/Report: Reason for Exam Type 2 diabetes mellitus with unspecified complicationsHemoglobin A1C10.74.3-5.6 %H Increased risk for diabetes: 5.7 - 6.4 diabetes: >6.4 glycemic control for adults with diabetes: <7.0 Estimated Average Krktjsy415Xjcnfwnm Blood Count Auto Diff Reviewed date:11/15/2024 08:45:23 PM Interpretation: Performing Lab:, [facility], [address] , [place] Notes/Report: Reason for Exam Type 2 diabetes mellitus with unspecified complicationsWhite Blood Count4.54.1-10.5 10*3/uLNUncorrected WBC4.54.1-10.5 10*3/uLNRed Blood Count5.083.90-5.60 10*6/bKEMkhweaxvuj05.813.0-17.0 g/dLN Uwwtxhstvi81.138.8-50.0 %NMean Corpuscular Yxrbcy58.683.5-101 fLNMean Corpuscular Povxngldjb92.127.5-35.2 pgNMean Corpuscular HGB Conc32.932.5-35.6 g/dLNRed Cell Distribution Width14.812.0-14.8 %NPlatelet Tpxgc379350-689 10*3/uL NMean Platelet Opqhjq02.76.6-10.1 fLHNeutrophils % (Auto)60.0. %Lymphocytes % (Auto)25.3. %Monocytes % (Auto)11.7. %Eosinophils % (Auto)2.5. %Basophils % (Auto)0.5. %NRBC%0.10-0.5 /100{WBC}NNeutrophils # (Auto)2.71.8-7.7 10*3/uLN Lymphocytes # (Auto)1.11.00-4.8 10*3/uLNMonocytes # (Auto)0.50.0-0.8 10*3/uLN Eosinophils # (Auto)0.10.0-0.45 10*3/uLNBasophils # (Auto)0.00.0-0.2 10*3/uLNLDL Cholesterol Measured Reviewed date:11/15/2024 08:44:50 PM Interpretation: Performing Lab: Notes/Report: Reason for Exam Type 2 diabetes mellitus with unspecified complications Reason for Exam Mixed hyperlipidemia Reason for Exam History of atrial fibrillationLDL Cholesterol Eapecedm058-194 mg/dLN LDL ATP III CLASSIFICATION LDL less than 100 mg/dL Optimal LDL 100-129 mg/dL Near or above optimal LDL 130-159 mg/dL Borderline high LDL 160-189 mg/dL High LDL greater than 189 mg/dL Very high PSA Screen (Yearly) w/Reflex Reviewed date:11/15/2024 08:44:54 PM Interpretation: Performing Lab:, [facility], [place] Notes/Report: Reason for Exam Prostate cancer screeningPSA Screen (Yearly) w/Reflex0.6600.000- 4.000 ng/mLN Serial tumor marker results determined by assays using different manufacturers or methods may not be comparable. [facility] senior project controls specialist and method: ClickN KIDS DXI, CHEMILUMINESCENT IMMUNOASSAY. Urinalysis Reviewed date:12/05/2024 08:26:45 AM Interpretation: Performing Lab:, [facility], [place] Notes/Report: Name Collection Type:: Clean-Voided MidstreamColor,UrineLight-YellowYellow Appearance,UrineClearClearSpecificy [place],Urine1.0291.001-1.030NpH,Urine5.5 5.0-9.0NLeukocyte Esterase,UrineNegativeNegativeNitrite,UrineNegativeNegative Protein,UrineNegativeNegativeGlucose,Urine (UA)>=1000Normal mg/dLHKetones,Urine NegativeNegativeUrobilinogen,UrineNormalNormalBilirubin,UrineNegativeNegative Occult Blood,UrineNegativeNegativeBasic Metabolic Panel Reviewed date:12/05/2024 08:26:28 AM Interpretation: Performing Lab:, [facility], [place] Notes/Report:Qrcunev73871-225 mg/dLH Random Glucose Reference Range is dependent on time and content of last meal. Glucose of more than 200 mg/dL in a nonstressed, ambulatory subject supports the diagnosis of Diabetes Mellitus. ADA recommended reference range Blood Urea Ylxqogbh352-73 mg/uBCUgvmtl322926-828 mmol/LNPotassium4.03.5-5.1 mmol/LN Hemolysis is present at a level that could interfere with the result. Contact lab if redraw is required Qlijxamj70344-859 mmol/LNCarbon Yjcvpgg93.221.0-31.0 mmol/LNCalcium9.18.6-10.3 mg/dLNCreatinine0.900.70-1.30 mg/dLNEstimated GFR>60.0Anion Gap11.86.0-15.0 meq/LNCreatinine Clr Calc Zcafymdc24.94B-Type Natriuretic Peptide Reviewed date:12/05/2024 08:26:15 AM Interpretation: Performing Lab:, [facility], [address] [place] Notes/Report:B-Type Natriuretic Mnhdrmx91.05-100 pg/mLNCreatine Kinase Reviewed date:12/05/2024 08:26:33 AM Interpretation: Performing Lab:, [facility], [address] [place] Notes/Report:Creatine Ruzuoy21265-176 U/LNProthrombin Time INR Reviewed date:12/05/2024 08:26:10 AM Interpretation: Performing Lab:, [facility], [address] [place] Notes/Report: REDRAW: PRIOR SAMPLE QNSProthrombin Time11.29.0-12.9 sN A hematocrit value greater than 55% may lead to inaccurate results in coagulation testing. Patients having hematocrit values >55% require a special collection tube for coagulation studies. Please contact the laboratory at [phone] for redraw instructions. INR1.0 INR Therapeutic Range A) Pre- and Peroperative OAT started two weeks before surgery. NOT HIP SURGERY: 1.5 - 2.5 HIP SURGERY: 2 - 3 B) Primary and secondary prevention of venous THROMBOSIS: 2 - 3 C) Active venous thrombosis, pulmonary embolism and prevention of recurrent venous thrombosis: 2 - 3 D) Prevention of arterial thromboembolism including patients with mechanical heart valves: 3 - 4.5 Complete Blood Count Auto Diff Reviewed date:12/05/2024 08:26:40 AM Interpretation: Performing Lab:, [facility], [address] [place] Notes/Report:White Blood Count4.74.1-10.5 10*3/uLNUncorrected WBC4.74.1-10.5 10*3/uLNRed Blood Count4.863.90-5.60 10*6/wBTCcmfilbiiw90.313.0-17.0 g/dLN Obryahwkqm08.738.8-50.0 %NMean Corpuscular Iutzai27.183.5-101 fLNMean Corpuscular Umsovxobsl02.427.5-35.2 pgNMean Corpuscular HGB Conc33.432.5-35.6 g/dLNRed Cell Distribution Width14.312.0-14.8 %NPlatelet Bhkhf083299-698 10*3/uL NMean Platelet Volume9.66.6-10.1 fLNNeutrophils % (Auto)57.7. %Lymphocytes % (Auto)28.2. %Monocytes % (Auto)11.2. %Eosinophils % (Auto)2.0. %Basophils % (Auto)0.9. %NRBC%0.10-0.5 /100{WBC}NNeutrophils # (Auto)2.71.8-7.7 10*3/uLN Lymphocytes # (Auto)1.31.00-4.8 10*3/uLNMonocytes # (Auto)0.50.0-0.8 10*3/uLN Eosinophils # (Auto)0.10.0-0.45 10*3/uLNBasophils # (Auto)0.00.0-0.2 10*3/uLN Monocyte Distribution Width18.950.00-20.00 %NTroponin I High Sensitivity Reviewed date:12/05/2024 08:26:23 AM Interpretation: Performing Lab: Notes/Report: The Troponin units of report have been changed to meet the Chest Pain Accreditation requirement, element EC5.M1l2. Troponin units are changed from pg/ml to ng/L. Also, the decimal is removed and results are in whole numbers.Troponin I High Sensitivity6 0-20NCreatine Kinase Reviewed date:12/21/2024 09:14:33 PM Interpretation: Performing Lab:, [facility], [address] Notes/Report:Creatine Ndapdx7453-567 U/LNComprehensive Metabolic Panel Reviewed date:12/21/2024 09:14:39 PM Interpretation: Performing Lab:, [facility], [address] [place] Notes/Report:Hgyjnok76217-174 mg/dLH Random Glucose Reference Range is dependent on time and content of last meal. Glucose of more than 200 mg/dL in a nonstressed, ambulatory subject supports the diagnosis of Diabetes Mellitus. ADA recommended reference range Blood Urea Bkbrmbhd850-46 mg/dLNCreatinine1.040.70-1.30 mg/kAXMuuhny087470-653 mmol/LNPotassium4.13.5-5.1 mmol/PVDtgntqjv74275-212 mmol/LNCarbon Jmqeqxm19.9 21.0-31.0 mmol/LNCalcium8.88.6-10.3 mg/dLNTotal Protein6.86.4-8.9 g/dLNAlbumin Level4.13.5-5.7 g/dLNGlobulin2.7Albumin/Globulin Ratio1.5Bilirubin,Total0.70.3- 1.0 mg/dLNAspartate Amino Adehrcqyyod9198-87 U/LNAlanine Efxzhuvedaqikgqf825-63 U/LNAlkaline Bchbiulkfwz3486-828 U/LNEstimated GFR>60.0Anion Gap10.26.0-15.0N Creatinine Clr Calc Tuicmszc19.72Complete Blood Count Auto Diff Reviewed date:12/21/2024 09:15:10 PM Interpretation: Performing Lab:, [facility], [address] [place] Notes/Report:White Blood Count4.64.1-10.5 [CFU]/mLNUncorrected WBC4.64.1-10.5 10*3/uLNRed Blood Count4.423.90-5.60 10*6/zFLBmvlkyikvw60.913.0-17.0 g/dLN Jaxhkxbprv08.538.8-50.0 %NMean Corpuscular Oxwlqe61.983.5-101 fLNMean Corpuscular Jufjfockeo96.527.5-35.2 pgNMean Corpuscular HGB Conc33.532.5-35.6 g/dLNRed Cell Distribution Width14.212.0-14.8 %NPlatelet Ngnyh458285-898 10*3/uL NMean Platelet Volume9.56.6-10.1 fLNNeutrophils % (Auto)58.5. %Lymphocytes % (Auto)23.3. %Monocytes % (Auto)15.1. %Eosinophils % (Auto)2.1. %Basophils % (Auto)1.0. %NRBC%0.10-0.5 /100{WBC}NNeutrophils # (Auto)2.71.8-7.7 10*3/uLN Lymphocytes # (Auto)1.11.00-4.8 10*3/uLNMonocytes # (Auto)0.70.0-0.8 10*3/uLN Eosinophils # (Auto)0.10.0-0.45 10*3/uLNBasophils # (Auto)0.00.0-0.2 10*3/uLN Monocyte Distribution Width17.690.00-20.00 %NUrinalysis Reviewed date:12/21/2024 09:14:45 PM Interpretation: Performing Lab:, [facility], [address] [place], [place] Notes/Report: Name Collection Type:: Clean-Voided MidstreamColor,UrineLight-YellowYellow Appearance,UrineClearClearSpecificy [place],Urine1.0331.001-1.030HpH,Urine5.0 5.0-9.0NLeukocyte Esterase,UrineNegativeNegativeNitrite,UrineNegativeNegative Protein,UrineNegativeNegative mg/dLGlucose,Urine (UA)>=1000Normal mg/dL Ketones,UrineNegativeNegativeUrobilinogen,UrineNormalNormal mg/dLBilirubin,Urine NegativeNegativeOccult Blood,UrineNegativeNegativeTroponin I High Sensitivity Reviewed date:12/21/2024 09:14:28 PM Interpretation: Performing Lab: Notes/Report: The Troponin units of report have been changed to meet the Chest Pain Accreditation requirement, element EC5.M1l2. Troponin units are changed from pg/ml to ng/L. Also, the decimal is removed and results are in whole numbers.Troponin I High Sensitivity4 0-20NThyroid Stim Hormone w/Rflx Reviewed date:11/15/2024 08:45:00 PM Interpretation: Performing Lab: Notes/Report: Reason for Exam Type 2 diabetes mellitus with unspecified complications Reason for Exam Mixed hyperlipidemia Reason for Exam History of atrial fibrillationThyroid Stim Hormone w/Rflx1.17 0.45-5.33 u[iU]/mLNLipid Panel Reviewed date:11/15/2024 08:44:45 PM Interpretation: Performing Lab: Notes/Report: Reason for Exam Type 2 diabetes mellitus with unspecified complications Reason for Exam Mixed hyperlipidemia Reason for Exam History of atrial xjxfvdchkefgYdmhrmkfqcy295105-573 mg/dLL Chol less than 200 mg/dl low risk Chol 201-239 mg/dl borderline risk Chol 240 mg/dl and greater high risk HDL Dhspwbbkybo6409-22 mg/dLN HDL CHOL ATP-III CLASSIFICATION Cardiovascular Risk HDL > or equal to 60 mg/dL LOW HDL < 40 mg/dL HIGH Triglyceride w/Burbob6369-199 mg/dLH TRIG ATP III CLASSIFICATION TRIG less than 150 mg/dL Normal TRIG 150-199 mg/dL Borderline high TRIG 200-500 mg/dL High TRIG greater than 500 mg/dL Very high Standard traceable to the Center for Disease Conrtrol and Prevention (CDC) test method. LDL Cholesterol,Ewlijhbcup606-272 mg/dLN LDL ATP III CLASSIFICATION LDL less than 100 mg/dL Optimal LDL 100-129 mg/dL Near or above optimal LDL 130-159 mg/dL Borderline high LDL 160-189 mg/dL High LDL greater than 189 mg/dL Very high VLDL MUMQKRWCWDL40Xtut/HDL Ratio3.2<5.0Comprehensive Metabolic Panel Reviewed date:11/15/2024 08:45:11 PM Interpretation: Performing Lab:, [facility], [address] [place], [place] Notes/Report: Reason for Exam Type 2 diabetes mellitus with unspecified complications Reason for Exam Mixed hyperlipidemia Reason for Exam History of atrial aoszcpwiqtfyDofwzpn17015-547 mg/dLH Random Glucose Reference Range is dependent on time and content of last meal. Glucose of more than 200 mg/dL in a nonstressed, ambulatory subject supports the diagnosis of Diabetes Mellitus. ADA recommended reference range Blood Urea Orlqqjbg726-52 mg/dLNCreatinine1.010.70-1.30 mg/gNZUgtdaw814673-357 mmol/LNPotassium4.63.5-5.1 mmol/QKXzuplscc36063-112 mmol/LNCarbon Xpyeofk51.3 21.0-31.0 mmol/LNCalcium9.68.6-10.3 mg/dLNTotal Protein7.46.4-8.9 g/dLNAlbumin Level4.43.5-5.7 g/dLNGlobulin3.0Albumin/Globulin Ratio1.5Bilirubin,Total0.50.3- 1.0 mg/dLNAspartate Amino Kouelitwxyw6622-50 U/LNAlanine Zesimacnbvhdyrho235-65 U/LNAlkaline Wfymnptsuvm6368-968 U/LNEstimated GFR>60.0Anion Gap12.36.0-15.0 meq/LNHemoglobin A1c Reviewed date:09/14/2024 03:05:47 PM Interpretation: Performing Lab: Notes/Report: Hemoglobin A1c10.9%5 - 7.9 %Hemoglobin A1c Reviewed date:06/06/2024 01:27:16 PM Interpretation: Performing Lab: Notes/Report: Hemoglobin A1c9.6%5 - 7.9 % Reason For Referral Reason PT N/S APPT T2DM u ncontrolled - [facility] Diagnosis 1 Type 2 diabetes emily itus with unspecified complications (E11.8) Referral Organization [facility] Referring Provider First Name Denita Referring Provider Last Name Juana Referring Provider Speciality Family Broderick yates Referred Provider [facility], . Referred Provider Specialty Diabetes Man agement Referral Priority Routine Reason *FAXED 12/27 uncontr olled T2DM, missed last apt was in hospital, side effects to many meds and diet uncontrolled Diagnosis 1 Type 2 diabetes emily itus with unspecified complications (E11.8) Referral Organization [facility] Referring Provider First Name Denita Referring Provider Last Name Juana Referring Provider Speciality Family Pra ctice Referred Provider [facility] Diabetic [facility], . Referred Provider Specialty Diabetes Edu cator General Notes Mary Polanco 2024 01:06:01 PM >[facility] DECLINED REFERRAL DUE TO N/S. Referral Priority Routine Reason *FAXED 01/13 - FAXED REFFERAL UPDATE 04/13 Left knee sprain x1 week, no fracture on XR Diagnosis 1 Pain, joint, knee, l eft (M25.562) Referral Organization [facility] Referring Provider First Name Gerald Referring Provider Last Name Nainashantel Referring Provider Speciality [facility] cherelle Referred Provider Jagjit PT/OT, Jose Kelsey [facility] Referred Provider Specialty Physical The rapist Referral Priority Routine Medications Medication SIG (Take, Route, Frequency, Duration) Notes Start Date End Date Status Vitamin B12 100 MCG Tablet as directed Orally Not-Taking/PRNEsomeprazole Magnesium 40 MG Capsule Delayed Release1 capsule 1/2 to 1 hour before morning meal Orally twice a dayActiveMetoprolol Tartrate 50 MG Tablet1 tablet with food Orally Twice a dayonce dailyActiveXarelto 20 MG Tablet1 tablet with food Orally Once a dayActiveAmiodarone HCl 200 MG Tablet1 tablet Orally twice dailyonce dailyActiveMetoclopramide HCl 10 MG Tablet1 tablet before meals Orally three times a day; Duration: 30 day(s)ActiveClopidogrel Bisulfate 75 MG TabletTAKE 1 TABLET BY MOUTH DAILY FOR 7 DAYS; Duration: 7Not-Taking/PRN Cephalexin 500 MG Capsule1 capsule Orally every 6 hrs; Duration: 10 day(s) /5ActiveInsulin Glargine Solostar 100 UNIT/ML Solution Pen-zsxopide48 units Subcutaneous dailyActiveFreeStyle Nan 2 Sensor - Miscellaneousup to 3 times a day; Duration: 28 daysActivePen [place] 5/16 31G X 8 MM MiscellaneousUSE ONE NEEDLE TO INJECT INSULIN ONCE DAILY; Duration: 30 daysActiveNitroglycerin 0.4 MG Tablet Sublingualas directed Sublingual Not-Taking/PRNDoxycycline Hyclate 100 MG Capsule1 capsule Orally Once a day; Duration: 10 days/5ActiveIsosorbide Mononitrate ER 120 MG Tablet Extended Release 24 HourOral; Duration: 30 DaysActiveOlopatadine HCl 0.2 % Solution1 drop into each eye Ophthalmic Once a day; Duration: 30 days 11/03/2024Not-Taking/PRNLantus SoloStar 100 UNIT/ML Solution Pen-cbccrudz45 units Subcutaneous dailyActiveNystatin 494663 UNIT/ML Suspension4 mL Mouth/Throat Four times a dayNot-Taking/PRNFreeStyle Nan 14 Day Sensor - Miscellaneous1 sensor; Duration: 28 daysActiveMelatonin 3 MG Tablet1 tablet at bedtime as needed Orally Once a day; Duration: 30 daysActiveEzetimibe 10 MG TabletTAKE ONE TABLET BY MOUTH DAILYActiveAtorvastatin Calcium 80 MG Tablet1 tablet Orally Once a dayActiveHumaLOG KwikPen 100 UNIT/ML Solution Pen-injector 10 units Subcutaneous three times a day with meals; Duration: 30 daysActive Jardiance 25 MG TabletTAKE 1 TABLET BY MOUTH DAILYActiveBlood Glucose Test Strips 333 - Stripas directed In Vitro In Vitro; Duration: 90 daysRequesting refill for OneTouch Ultra Test Qhnpzv565Active Immunizations Vaccine Route Administration Date Status Comme nts Influenza 3+ PRIVATE IM Intramuscular 06/25/2022 Administe red Influenza-AdultIM Scpuiphjdqrxh87/12/2018AdministeredMODERNAIM Intramuscular 1AdministeredMODERNAIM Psdrgywpaoclu08/24/2021AdministeredMODERNAIM Welyssiumndyg61/15/2021AdministeredBOOSTERMODERNA BIVALENTIM Intramuscular 2AdministeredPNEUMOVAX 27Lyjvyhf09/01/2019Administeredzzz do not use FLUARIX 3 YRS AND OLDER AdultIM Aeonscorbjcit45/13/2016Administered Social History Tobacco Use: Social History Observation Description Date Details (start date - stop date) Never Smoker NA - NA Social History Social DeterminantsSocial InfoQuestionAnswerNotesPRAPAREDate Completed/Updated: 5added smart form to chart, initially completed on paper formWhat is your current housing situation?I have housingAre you worried about losing your housing?NoWhat is the highest level of school that you have finished?High school diploma or GEDWhat is your current work situation?Otherwise unemployed but not seeking work (ex. student, retired, disabled, unpaid primary personal carer)In the past year, have you or any family members you live with been unable to get any of the following when it was really needed? Check all that applyI do not have problems meeting my needsHas lack of transportation kept you from medical appointments, meetings, work or from getting things needed for daily living?No How often do you see or talk to people that you care about and feel close to? (For example: talkingto friends on the phone, visiting friends or family, going to temple or club meetings)More than 5 times a weekHow stressed are you? Stress is when someone feels tense, nervous, anxious, or cant sleep at night because their mind is troubledA little bitIn the past year have you spent more than 2 nights in a row in a penitentiary, shelter, retirement center, orjuvenile correctional facility?NoAre you a refugee?NoWhat country are you from?[place]Do you feel physically and emotionally safe where you currently live?YesIn the past year, have you been afraid of your partner or ex-partner?NoPRAPARE Score:3 GeneralSocial InfoQuestionAnswerNotesTransition of Care:ER/UC/hospital since last office visit?NoSpecialist seen since last office visit?NoSubstance abuse/mental health issues of patient/familyPatient -DeniesAbility to understand healthcare/treatmentPatient:GoodSocial/Support Concerns:Patient:NoBehaviors affecting healthPoor/Risky Behaviors:Denies-Communication Barrier:Language Barrier?:NoFood Insecurity ScreeningSocial InfoQuestionAnswerNotesDrugsDrug use Denies drug useFood Insecurity ScreeningWithin the last 12 months, have you been worried about your food running out before you received money to buy more?No Within the last 12 months, did the food you buy not last, and you didn't have money to buy more?NoDrug/Alcohol:Social InfoQuestionAnswerNotesAUDIT-C (Standard)Did you have a drink containing alcohol in the past year?NoPoints0 InterpretationNegativeTobacco Use:Social InfoQuestionAnswerNotesTobacco Control (Standard)Tobacco use:NonsmokerSection Notes: STARTED SMOKING A COUPLE WEEKS AGO, 2 PPD. history of EtOH - approx 15 years of heavy drinking, CURRENTLY: SELDOM, 1 BEER A WEEK, occ cigars. 12 pack of diet coke a day stopped smoking, occ alcohol use, denies drug use 11/13/15: Denies tobacco use, Very little etoh, No idu. STARTED SMOKING A COUPLE WEEKS AGO, 2 PPD. history of EtOH - approx 15 years of heavy drinking, CURRENTLY: SELDOM, 1 BEER A WEEK, occ cigars. 12 pack of diet coke a day stopped smoking, occ alcohol use, denies drug use 11/13/15: Denies tobacco use, Very little etoh, No idu. STARTED SMOKING A COUPLE WEEKS AGO, 2 PPD. history of EtOH - approx 15 years of heavy drinking, CURRENTLY: SELDOM, 1 BEER A WEEK, occ cigars. 12 pack of diet coke a day stopped smoking, occ alcohol use, denies drug use 11/13/15: Denies tobacco use, Very little etoh, No idu. STARTED SMOKING A COUPLE WEEKS AGO, 2 PPD. history of EtOH - approx 15 years of heavy drinking, CURRENTLY: SELDOM, 1 BEER A WEEK, occ cigars. 12 pack of diet coke a day stopped smoking, occ alcohol use, denies drug use 11/13/15: Denies tobacco use, Very little etoh, No idu. STARTED SMOKING A COUPLE WEEKS AGO, 2 PPD. history of EtOH - approx 15 years of heavy drinking, CURRENTLY: SELDOM, 1 BEER A WEEK, occ cigars. 12 pack of diet coke a day stopped smoking, occ alcohol use, denies drug use STARTED SMOKING A COUPLE WEEKS AGO, 2 PPD. history of EtOH - approx 15 years of heavy drinking, CURRENTLY: S[place]OM, 1 BEER A WEEK, occ cigars stopped smoking, occ alcohol use, denies drug use 11/13/15: Denies tobacco use, Very little etoh, No idu. STARTED SMOKING A COUPLE WEEKS AGO, 2 PPD. history of EtOH - approx 15 years of heavy drinking, CURRENTLY: SELDOM, 1 BEER A WEEK, occ cigars. 12 pack of diet coke a day stopped smoking, occ alcohol use, denies drug use 11/13/15: Denies tobacco use, Very little etoh, No idu. STARTED SMOKING A COUPLE WEEKS AGO, 2 PPD. history of EtOH - approx 15 years of heavy drinking, CURRENTLY: SELDOM, 1 BEER A WEEK, occ cigars. 12 pack of diet coke a day stopped smoking, occ alcohol use, denies drug use history of EtOH - approx 15 years of heavy drinking, CURRENTLY: SELDOM, 1 BEER A WEEK, occ cigars. 12 pack of diet coke a day stopped smoking, occ alcohol use, denies drug use no tobacco, history of EtOH - approx 15 years of heavy drinking no tobacco, history of EtOH - approx 15 years of heavy drinking 11/13/15: Denies tobacco use, Very little etoh, No idu. STARTED SMOKING A COUPLE WEEKS AGO, 2 PPD. history of EtOH - approx 15 years of heavy drinking, CURRENTLY: SELDOM, 1 BEER A WEEK, occ cigars. 12 pack of diet coke a day stopped smoking, occ alcohol use, denies drug use 11/13/15: Denies tobacco use, Very little etoh, No idu. STARTED SMOKING A COUPLE WEEKS AGO, 2 PPD. history of EtOH - approx 15 years of heavy drinking, CURRENTLY: SELDOM, 1 BEER A WEEK, occ cigars. 12 pack of diet coke a day stopped smoking, occ alcohol use, denies drug use 11/13/15: Denies tobacco use, Very little etoh, No idu. STARTED SMOKING A COUPLE WEEKS AGO, 2 PPD. history of EtOH - approx 15 years of heavy drinking, CURRENTLY: SELDOM, 1 BEER A WEEK, occ cigars. 12 pack of diet coke a day stopped smoking, occ alcohol use, denies drug use 11/13/15: Denies tobacco use, Very little etoh, No idu. STARTED SMOKING A COUPLE WEEKS AGO, 2 PPD. history of EtOH - approx 15 years of heavy drinking, CURRENTLY: SELDOM, 1 BEER A WEEK, occ cigars. 12 pack of diet coke a day stopped smoking, occ alcohol use, denies drug use 11/13/15: Denies tobacco use, Very little etoh, No idu. STARTED SMOKING A COUPLE WEEKS AGO, 2 PPD. history of EtOH - approx 15 years of heavy drinking, CURRENTLY: SELDOM, 1 BEER A WEEK, occ cigars. 12 pack of diet coke a day stopped smoking, occ alcohol use, denies drug use 11/13/15: Denies tobacco use, Very little etoh, No idu. STARTED SMOKING A COUPLE WEEKS AGO, 2 PPD. history of EtOH - approx 15 years of heavy drinking, CURRENTLY: SELDOM, 1 BEER A WEEK, occ cigars. 12 pack of diet coke a day stopped smoking, occ alcohol use, denies drug use STARTED SMOKING A COUPLE WEEKS AGO, 2 PPD. history of EtOH - approx 15 years of heavy drinking, CURRENTLY: SELDOM, 1 BEER A WEEK, occ cigars. 12 pack of diet coke a day stopped smoking, occ alcohol use, denies drug use STARTED SMOKING A COUPLE WEEKS AGO, 2 PPD. history of EtOH - approx 15 years of heavy drinking, CURRENTLY: SELDOM, 1 BEER A WEEK, occ cigars. 12 pack of diet coke a day stopped smoking, occ alcohol use, denies drug use STARTED SMOKING A COUPLE WEEKS AGO, 2 PPD. history of EtOH - approx 15 years of heavy drinking, CURRENTLY: SELDOM, 1 BEER A WEEK, occ cigars. 12 pack of diet coke a day stopped smoking, occ alcohol use, denies drug use STARTED SMOKING A COUPLE WEEKS AGO, 2 PPD. history of EtOH - approx 15 years of heavy drinking, CURRENTLY: SELDOM, 1 BEER A WEEK, occ cigars. 12 pack of diet coke a day stopped smoking, occ alcohol use, denies drug use no tobacco, history of EtOH - approx 15 years of heavy drinking no tobacco, history of EtOH - approx 15 years of heavy drinking no tobacco, history of EtOH - approx 15 years of heavy drinking no tobacco, history of EtOH - approx 15 years of heavy drinking 11/13/15: Denies tobacco use, Very little etoh, No idu. STARTED SMOKING A COUPLE WEEKS AGO, 2 PPD. history of EtOH - approx 15 years of heavy drinking, CURRENTLY: SELDOM, 1 BEER A WEEK, occ cigars. 12 pack of diet coke a day stopped smoking, occ alcohol use, denies drug use STARTED SMOKING A COUPLE WEEKS AGO, 2 PPD. history of EtOH - approx 15 years of heavy drinking, CURRENTLY: SELDOM, 1 BEER A WEEK STARTED SMOKING A COUPLE WEEKS AGO, 2 PPD. history of EtOH - approx 15 years of heavy drinking, CURRENTLY: SELDOM, 1 BEER A WEEK, occ cigars STARTED SMOKING A COUPLE WEEKS AGO, 2 PPD. history of EtOH - approx 15 years of heavy drinking, CURRENTLY: SELDOM, 1 BEER A WEEK, occ cigars stopped smoking, occ alcohol use, denies drug use 11/13/15: Denies tobacco use, Very little etoh, No idu. STARTED SMOKING A COUPLE WEEKS AGO, 2 PPD. history of EtOH - approx 15 years of heavy drinking, CURRENTLY: SELDOM, 1 BEER A WEEK, occ cigars. 12 pack of diet coke a day stopped smoking, occ alcohol use, denies drug use 11/13/15: Denies tobacco use, Very little etoh, No idu. STARTED SMOKING A COUPLE WEEKS AGO, 2 PPD. history of EtOH - approx 15 years of heavy drinking, CURRENTLY: SELDOM, 1 BEER A WEEK, occ cigars. 12 pack of diet coke a day stopped smoking, occ alcohol use, denies drug use STARTED SMOKING A COUPLE WEEKS AGO, 2 PPD. history of EtOH - approx 15 years of heavy drinking, CURRENTLY: SELDOM, 1 BEER A WEEK, occ cigars. 12 pack of diet coke a day stopped smoking, occ alcohol use, denies drug use 11/13/15: Denies tobacco use, Very little etoh, No idu. STARTED SMOKING A COUPLE WEEKS AGO, 2 PPD. history of EtOH - approx 15 years of heavy drinking, CURRENTLY: SELDOM, 1 BEER A WEEK, occ cigars. 12 pack of diet coke a day stopped smoking, occ alcohol use, denies drug use 11/13/15: Denies tobacco use, Very little etoh, No idu. STARTED SMOKING A COUPLE WEEKS AGO, 2 PPD. history of EtOH - approx 15 years of heavy drinking, CURRENTLY: SELDOM, 1 BEER A WEEK, occ cigars. 12 pack of diet coke a day stopped smoking, occ alcohol use, denies drug use 11/13/15: Denies tobacco use, Very little etoh, No idu. STARTED SMOKING A COUPLE WEEKS AGO, 2 PPD. history of EtOH - approx 15 years of heavy drinking, CURRENTLY: SELDOM, 1 BEER A WEEK, occ cigars. 12 pack of diet coke a day stopped smoking, occ alcohol use, denies drug use STARTED SMOKING A COUPLE WEEKS AGO, 2 PPD. history of EtOH - approx 15 years of heavy drinking, CURRENTLY: SELDOM, 1 BEER A WEEK, occ cigars. 12 pack of diet coke a day stopped smoking, occ alcohol use, denies drug use STARTED SMOKING A COUPLE WEEKS AGO, 2 PPD. history of EtOH - approx 15 years of heavy drinking, CURRENTLY: SELDOM, 1 BEER A WEEK, occ cigars. 12 pack of diet coke a day stopped smoking, occ alcohol use, denies drug use STARTED SMOKING A COUPLE WEEKS AGO, 2 PPD. history of EtOH - approx 15 years of heavy drinking, CURRENTLY: SELDOM, 1 BEER A WEEK, occ cigars. 12 pack of diet coke a day stopped smoking, occ alcohol use, denies drug use STARTED SMOKING A COUPLE WEEKS AGO, 2 PPD. history of EtOH - approx 15 years of heavy drinking, CURRENTLY: SELDOM, 1 BEER A WEEK, occ cigars. 12 pack of diet coke a day stopped smoking, occ alcohol use, denies drug use STARTED SMOKING A COUPLE WEEKS AGO, 2 PPD. history of EtOH - approx 15 years of heavy drinking, CURRENTLY: SELDOM, 1 BEER A WEEK, occ cigars. 12 pack of diet coke a day stopped smoking, occ alcohol use, denies drug use STARTED SMOKING A COUPLE WEEKS AGO, 2 PPD. history of EtOH - approx 15 years of heavy drinking, CURRENTLY: SELDOM, 1 BEER A WEEK no tobacco, history of EtOH - approx 15 years of heavy drinking 11/13/15: Denies tobacco use, Very little etoh, No idu. STARTED SMOKING A COUPLE WEEKS AGO, 2 PPD. history of EtOH - approx 15 years of heavy drinking, CURRENTLY: SELDOM, 1 BEER A WEEK, occ cigars. 12 pack of diet coke a day stopped smoking, occ alcohol use, denies drug use STARTED SMOKING A COUPLE WEEKS AGO, 2 PPD. history of EtOH - approx 15 years of heavy drinking, CURRENTLY: SELDOM, 1 BEER A WEEK, occ cigars. 12 pack of diet coke a day stopped smoking, occ alcohol use, denies drug use 11/13/15: Denies tobacco use, Very little etoh, No idu. STARTED SMOKING A COUPLE WEEKS AGO, 2 PPD. history of EtOH - approx 15 years of heavy drinking, CURRENTLY: SELDOM, 1 BEER A WEEK, occ cigars. 12 pack of diet coke a day stopped smoking, occ alcohol use, denies drug use 11/13/15: Denies tobacco use, Very little etoh, No idu. STARTED SMOKING A COUPLE WEEKS AGO, 2 PPD. history of EtOH - approx 15 years of heavy drinking, CURRENTLY: SELDOM, 1 BEER A WEEK, occ cigars. 12 pack of diet coke a day stopped smoking, occ alcohol use, denies drug use 11/13/15: Denies tobacco use, Very little etoh, No idu. STARTED SMOKING A COUPLE WEEKS AGO, 2 PPD. history of EtOH - approx 15 years of heavy drinking, CURRENTLY: SELDOM, 1 BEER A WEEK, occ cigars. 12 pack of diet coke a day stopped smoking, occ alcohol use, denies drug use 11/13/15: Denies tobacco use, Very little etoh, No idu. STARTED SMOKING A COUPLE WEEKS AGO, 2 PPD. history of EtOH - approx 15 years of heavy drinking, CURRENTLY: SELDOM, 1 BEER A WEEK, occ cigars. 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) Type 2 diabetes mellitus with unspecified complications (E11.8) ActiveconfirmedProblemMixed hyperlipidemia (662607900)Mixed hyperlipidemia (E78.2)ActiveconfirmedProblemInsomnia (397890389)Other insomnia (G47.09)Active confirmedProblemEssential hypertension (94915075)Essential (primary) hypertension (I10)ActiveconfirmedProblemTypical atrial flutter (289028412) Typical atrial flutter (I48.3)ActiveconfirmedProblemGastroparesis (386787098) Gastroparesis (K31.84)ActiveconfirmedProblemAbnormal gait (57769118)Unsteadiness on feet (R26.81)ActiveconfirmedProblemLong-term current use of insulin (777975808)alf (current) use of insulin (Z79.4)ActiveconfirmedProblem Atrial fibrillation (95254684)Atrial fibrillation with RVR (I48.91)Active confirmedProblemDiabetic nephropathy (653860219)Diabetic nephropathy (E11.21) ActiveconfirmedProblemInsomnia (334956218)Insomnia, unspecified type (G47.00) ActiveconfirmedProblemDysphagia (34540639)Dysphagia, unspecified type (R13.10) ActiveconfirmedProblemCoronary artery disease (71795565)Coronary artery disease (I25.10)ActiveconfirmedProblemPeripheral neuropathy (268228957)Peripheral neuropathy (G62.9)ActiveconfirmedProblemHyperglycemia (11671957)Hyperglycemia (R73.9)ActiveconfirmedProblemSevere recurrent major depression without psychotic features (71352436)Severe episode of recurrent major depressive disorder, without psychotic features (F33.2)ActiveconfirmedProblemChronic pancreatitis (575272515)Chronic pancreatitis, unspecified pancreatitis type (K86.1)Active confirmedProblemMemory impairment (412321008)Memory impairment (R41.3)Active confirmedProblemStented coronary artery (150986400)Stented coronary artery (Z95.5)ActiveconfirmedProblemGeneralized anxiety disorder (11036960)NARAYAN (generalized anxiety disorder) (F41.1)ActiveconfirmedProblemBlind left eye (disorder) (279502535)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)ActiveconfirmedProblem Figueroa's esophagus (197465098)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) ActiveconfirmedProblemModerate recurrent major depression (56911633)MDD (major depressive disorder), recurrent episode, moderate (F33.1)ActiveconfirmedProblem Gastroesophageal reflux disease (237810562)Gastroesophageal reflux disease, unspecified whether esophagitis present (K21.9)Activeconfirmed Vital Signs Heart Rate 89 /min 05/08/2025 Sotosnzmiqm50.8 degrees Wdctzwhwso33/10/2025Respiratory Rate18 /min05/08/2025 Nsiulnrc18 %05/08/2025lood pressure gudedsqmh95 mm Hg05/08/20254764Ywlmvi57.5 in 05/08/2025lood pressure rjclefxo855 mm Hg05/08/20257753Wkigqg321 lbs107/08/2024MI 26.87 kg/m205/08/2025 Encounters Encounter Location Date Provider Diagnosis [facility] [address] [place] [address] 04/20/2025 [facility] [place] [address]/12/2024 [facility] [place] [address]/09/2024[facility] [place] [address]/09/2024[facility] [place] [address]/09/2024[facility] [place] [address]/10/2024[facility] [id number] [place] [address]/03/[address] [facility] [id number] [place] [address]/04/2024[facility] [address] [place] [address]/[facility] [address] [place] [address]/[facility] [address] [place] [address]/[facility] [address] [place] [address]/12/2024 [facility] [address] [place] [address]/[facility] [address] [place] [address]/04/2025[place] [id number] [place] [address]/[facility] [address] [place] [address]/[place] [id number] [place] [address]/[facility] [address] [place] [address]/[facility] [address] [place] [address]/ [facility] zzzR[facility]zoFamily Health [address] [place] [address]/[facility] zzzR[facility]zoFamily [facility] [address] [place] [address]/[facility] [address] [place] [address]/Kaitlyn zzzRizzoType 2 diabetes mellitus with unspecified complications E11.8[facility] [place] [address]/[facility] [address] [place] [address]/[facility] [address] [place] [address]/[facility] [place] [address]/02/2024Kaitlyn zzzRizzoType 2 diabetes mellitus with unspecified complications E11.8 ; Atrial fibrillation with RVR I48.91and Dysphagia, unspecified type R13.10[facility] [place] [address]/Kaitlyn zzzRizzo Type 2 diabetes mellitus with unspecified complications E11.8 ; Seborrheic dermatitis L21.9 ; Acutenon-recurrent sinusitis, unspecified location J01.90 and Stented coronary artery Z95.5F[facility] [address] [place] [address]/04/2025Kaitlyn zzzRizzoType 2 diabetes mellitus with unspecified complications E11.8[facility] [place] [address]/01/2025Kaitlyn zzzRizzoAllergic conjunctivitis of both eyes H10.13 and Type 2 diabetes mellitus with unspecified complications E11.8 [facility] [place] [address]/ Denita zzzRizzoType 2 diabetes mellitus with unspecified complications E11.8 ; Other insomnia G47.09 ; History of atrial fibrillation Z86.79 ; Prostate cancer screening Z12.5 and Mixed hyperlipidemia E78.2[place] [place] [address] [place] [address]/arry MasinAbscess of finger of right hand L02.511[place] [address] [place] [address] 5Barry MasinPain, joint, knee, left M25.562 ; Skin rash R21 and Medication refill Z76.0[place] [address] [place] [address]/Kaitlyn zzzRizzoType 2 diabetes mellitus with unspecified complications E11.8 ; Other insomnia G47.09 ; History of atrial fibrillation Z86.79 and Mixed hyperlipidemia E78.2[place] [place] [address]/Kaitlyn zzzRizzoTypical atrial flutter I48.3 ; Coronary artery disease I25.10 and Type 2 diabetes mellitus with unspecified complications E11.8[place] [address] [place] [address]/Stanton VincentBarrett's esophagus with dysplasia K22.719 ; Typical atrial flutter I48.3 and Type 2 diabetes mellitus with unspecified complications E11.8[place] [address] [place] [address]/09/2023Stanton VincentType 2 diabetes mellitus with unspecified complications E11.8 and Hyperglycemia R73.9[place] [address] [place] [address]/arry MasinEssential (primary) hypertension I10 and Type 2 diabetes mellitus with unspecified complications E11 .8 Assessments Encounter Date Diagnosis (ICD Code) Assessment Notes Treatment Notes Treatment Clinical Notes Section Notes 05/19/2024 Typical atrial flutter (ICD-10 - I48.3) For the patient's a flutter, I instructed him to continue the amiodarone, diltiazem, Xarelto, and clopidogrel. I instructed him to also closely follow with his manager client service. 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 This will need to be closely followed. For his type 2 diabetes mellitus, I will need further data and information for his glucose values. In order to provide a substantial plan for his diabetes, more information is needed. Patient notes he will obtain glucose values upon awakening, before meals, and before bedtime. Patient verbalizes agreement and understanding to plan of care. Patient notes he did take metformin the past, but cannot tolerate the medicine due to the diarrhea and vomiting he has when taking the pill. Lastly, patient notes he was on Ozempic in the past, but cannot remember why he was taken off of it. I discussed possible GLP-1 agonist, but patient would rather obtain his glucose values at this time, and we can discuss at a later visit. All questions and concerns were addressed with the patient. Follow-up in 2 weeks for telephone visit to discuss glucose values and diabetes care.05/19/2024arrett's esophagus with dysplasia (ICD-10 - K22.719)06/01/2024Type 2 diabetes mellitus with unspecified complications (ICD- 10 - E11.8)Due to patient still having elevated glucose levels, and having some cushion room with his elevatedlevels, we will increase his Lantus to 40 units subcutaneously once per day. I instructed the patient to keep checking his glucose values. Patient notes he has an appointment on June 06. This is with Dr. Escamilla. I instructed patient to continue checking his glucose values throughout the day, and to bring these to his appointment with Dr. Escamilla in a few days. If needed, we can change his insulinregiment again should the need arise. Patient confirms and agrees to the plan of care. All questions and concerns were addressed. Follow-up in 5 days.06/01/2024Hyperglycemia (ICD-10 - R73.9)06/06/2024Type 2 diabetes mellitus with unspecified complications (ICD-10 - E11.8)Patient with DM, uncontrolled. He was recently increased on his lantus to 40 units but his sugars dropped to the low 100s so he went back to 20 units. Discussed that he is showing need for more than 20 units but maybe not as much as 40. Discussed going up to 25 units for the next few weeks and encouraged monitoring with his CGM. Will likely need increase in lantus further but will increase him slowly. Discussed red flag symptoms that would warrant urgent evaluation. Patient voiced understandingand was in agreement with the plan. 06/06/2024trial fibrillation with RVR (ICD-10 - I48.91)Patient with afib managed by Dr. Stern ( Cardiology). He had tachycardic rate in office today - he states medicines had recently been decreased. My MA contacted Dr. Stern's office to get most recent note and they wanted patient to go to the ER. I discussed this with patient who states he would not have a ride home if they discharge him. He also does not want to be hospitalized. I discussed the risks of not going to the hospital. Patient is adamant he does not want to go to the ER. I did have MA contact Dr. Stern's office again so he is aware patient did not go to the ER.09/14/2024Type 2 diabetes mellitus with unspecified complications (ICD-10 - E11.8)Patient with worsening T2DM despite doing the same units of his insulin and Jardiance. He had previously been on metformin, ozempic, pioglitazone with side effects, so we are limited on diabetes regimen at this time. Patient endorses unhealthy eating habits and plans to work on changing them. He would like to recover from his sinus infection prior to changing his insulin regimen. He is aware of the dangers of high blood sugar. Discussed red flag symptoms that would warrant urgent evaluation. Patient voiced understanding and was in agreement with the plan.09/14/2024Seborrheic dermatitis (ICD-10 - L21.9)Patient with itchy scaly scalp along with areas on his face consistent with sunburn vs malar rash vs more seborrheic dermatitis. Will send in ketoconazole for use on scalp but encouraged consistent hydration of skin on face and arms where he is sun exposed. Patient voiced understanding and was in agreement with the plan.06/11/2024Typical atrial flutter (ICD-10 - I48.3)Patient recently hospitalized for atrial flutter with RVR. He had successful cardioversion in the hospital and had anti-arrhythmics adjusted. He has been compliant with amiodarine 200mg bid. He denies any issues whatsoever aside from an intermittent ache in his chest which is not new for him. He has been compliant with Xarelto as well. He has follow up with Dr. Stern in June and will be seeingUH senior geologist in July for consideration of ablation. He is in NSR at regular rate in office today and is asymptomatic. He denies any needs at this time. Continue management per cardiology team. Discussed red flag symptoms that would warrant urgent evaluation. Patient voiced understanding and was in agreement with the plan.10/07/2024Type 2 diabetes mellitus with unspecified complications (ICD-10 - E11.8)Patient with worsening T2DM recently due to medication noncompliance and poor dietary habits. He had previously been on metformin, ozempic, pioglitazone with side effects, so we are limited on diabetes regimen at this time. Patient endorses working on healthy eating habits. He is still having fasting sugars >160, so will plan to increase insulin to 27 units from 25 units to see if we can get better fasting glucose levels. Discussed importance of decreasing sugary pop intake. Also gave him scr ipt for glucometer for backup when he is out of Freestyle Nan sensors. He is aware of the dangersof high blood sugar. Discussed red flag symptoms that would warrant urgent evaluation. Patient voiced understanding and was in agreement with the plan.11/03/2024llergic conjunctivitis of both eyes (ICD-10 - H10.13) Patient with allergic conjunctivitis of both eyes exacerbated by grass. He has taken oral antihistamine with minimal improvement. Will send in Pataday drops at this time for use. He will be seeing eye doctor in November as well. Discussed red flag symptoms that would warrant urgent evaluation. Patient voiced understanding and was in agreement with the plan.11/15/2024Type 2 diabetes mellitus with unspecified complications (ICD-10 - E11.8)Patient with worsening T2DM recently due to medication noncompliance and poor dietary habits. He had previously been on metformin, ozempic, pioglitazone with side effects, so we are quite limited on diabetes regimen. Patient endorses working on healthy eating habits but has not been successful due to excessive hunger. He is still having fasting sugars >280s even with increased insulin. He did have Freestyle previously but was not keeping reader by him, so we got him trained to use a glucometer at last visit with instructions to check 4 times a day. He did not bring a log but states his fasting sugars are above 280 and post meal are in the 300s. He would like to go back to his Freestyle but discussed he absolutely needs to keep his reader near him at all times to avoid lows with increase in insulin regimen. Also placed referral to mechanical specialist since we are running out of options for him at last visit but he has not heard from them yet. Will increase to 35u insulin daily at this time and will continue with CGM monitoring as we may need to utilize mealtime insulin if we cannot get control with long acting and jardiance alone. Discussed red flag symptoms that would warrant urgent evaluation. Patient voiced understanding and was in agreement with the plan.11/15/2024Other insomnia (ICD-10 - G47.09)Patient with insomnia and sleep schedule from 3 AM to 11 AM. Discussed sleep hygiene. Will also send in low dose melatonin in the meantime.12/16/2024Type 2 diabetes mellitus with unspecified complications (ICD- 10 - E11.8)Patient with worsening T2DM recently due to medication noncompliance and poor dietary habits. He had previously been on metformin, ozempic, pioglitazone with side effects, so we are quite limited on diabetes regimen. Patient endorses working on healthy eating habits but has not been successful due to excessive hunger. He is still having fasting sugars >190s even with increased insulin. He did not bring a log but states his post meal are in the upper 200s to 300s. Also placed referral to mechanical specialist since we are running out of options for him at last visit but pt no showed apt whilehe was hospitalized. Will place new referral and provide number to patient to call. Will keep him on Jardiance, 35u lantus daily at this time, add on 10u TID for mealtime control and will continue with CGM monitoringe. Will follow up in 1 week. Discussed red flag symptoms that would warrant urgent evaluation. Patient voiced understanding and was in agreement with the plan.12/23/2024Type 2 diabetes mellitus with unspecified complications (ICD-10 - E11.8)01/12/2025Skin rash (ICD-10 - R21)Pt reports several months of ongoing rash to scalp and face which is sometimes pruitic and nonpainful and describes a serous discharge which forms into scabs. He has previously tried topical steroid creams with no improvement. No discharge present besides some small scabs on exam today. Will plan to treat with topical antibiotic cream for several weeks and plan to RTC as needed if no improvement is seen - pt understands and agrees with plan. 01/12/2025Pain, joint, knee, left (ICD-10 - M25.562)69 M s/p 1 week knee sprain with mild swelling and some limited ROM with flexion on exam today without evidence of ligament instability or meniscal tear. Recommended continued RICE therapy at home and discussed in detail today, as well as PRN Tylenol (max 3000mg/daily) for pain control. Pt receiveda referral and contact info for ortho followup from ED but has not contacted their office yet. Discussed starting Physical Therapy for further evaluation and treatment and pt was amenable - referral placed and plan to followup as needed for knee pain if no improvement is seen.04/20/2025Type 2 diabetes mellitus with unspecified complications (ICD- 10 - E11.8)04/20/2025Essential (primary) hypertension (ICD-10 - I10)05/08/2025 Abscess of finger of right hand (ICD-10 - L02.511)01/12/2025Medication refill (ICD-10 - Z76.0)Pt requesting refill for his [employer] Ultra 2 glucometer strips - Rx placed [facility].12/16/2024Other insomnia (ICD-10 - G47.09)Patient with insomnia and sleep schedule from typically 3 AM to 11 AM. Discussed sleep hygiene. Will continue low dose melatonin for now and discussed taking it earlier on in the night so he can try to fall asleep earlier.11/15/2024History of atrial fibrillation (ICD-10 - Z86.79)Patient with hx of afib, in NSR today. Will order TSH with annual labs. Medication managed by cardiology. Of note, patient also has recurrent chest discomfort that has been evaluated both by GI and cardiology previously. He declines EKG in office today. Discussed red flag symptoms that would warrant urgent evaluation. Patient voiced understanding and was in agreement with the plan.11/03/2024Type 2 diabetes mellitus with unspecified complications (ICD-10 - E11.8)Patient with worsening T2DM recently due to medication noncompliance and poor dietary habits. He had previously been on metformin, ozempic, pioglitazone with side effects, so we are quite limited on diabetes regimen at this time. Patient endorses working on healthy eating habits but has not been successful due to excessive hunger. He is still having fasting sugars >200s even with increased insulin. Discussed sugar log with food diary as well for the next week or so to allow us to figure out if mealtime insulin would benefit him versus just further increasing his basal insulin. He did have Freestyle previously but was not keeping reader by him, so we got him trained to use a glucometer today with instructions to check 4 times a day until he sees me next. Also discussed referral to mechanical specialist since we are running out of options for him. Discussed red flag symptoms that would warrant urgent evaluation. Patient voiced understanding and was in agreement with the plan.4Coronary artery disease (ICD-10 - I25.10)Patient has bottle of atorvastatin 10mg but has been on atorvastatin 80mg per cardiology. Upon looking at the bottle, it is from 2019 and he just puts his new pills in there. I will send in updated script for atorvastatin 80mg but I have a suspicion that he has indeed been taking the 80mg as he hasnot had 10mg sent in from our office or cardiology anytime recently per Rx review. Patient voiced understanding and was in agreement with the plan.5Acute non-recurrent sinusitis, unspecified location (ICD-10 - J01.90)Patient with >2 weeks of sinusitis. Will send in Augmentin at this time. First script sent in was incorrect dose. Corrected dose was sent in shortly after and MA contacted pharmacy to cancel initial script with success. Instructed patient to take entire course of antibiotics even if he is feeling better. Will also send in tessalon perles for his cough likely exacerbated by PND. Discussed red flag symptoms that would warrant urgent evaluation. Patient voiced understanding and was in agreementwith the plan. 4Dysphagia, unspecified type (ICD-10 - R13.10)05/19/2024Type 2 diabetes mellitus with unspecified complications (ICD-10 - E11.8)06/11/2024Type 2 diabetes mellitus with unspecified complications (ICD-10 - E11.8)Patient with DM, uncontrolled on 20u long acting insulin daily. He has been having much better controlled sugars with 25u with fasting mid 100s. Will continue with regimen at this time. Discussed continuing healthy lifestyle changes. Encouraged keeping his reader with him at all times. Will check in in about 2 weeks informally on the phone to ensure continued adequate control. Discussed red flag symptoms that would warrant urgent evaluation. Patient voiced understanding and was in agreement with the plan.09/14/2024Stented coronary artery (ICD-10 - Z95.5)Patient is on Xarelto prescribed by manager client service for stented coronary ateries. He stopped taking itdue to superficial skin bleeding the last few days. Highly recommended he restart taking this and let his manager client service know GI that he has been off of it the last few days in addition to his skin bleeding. Discussed that if he is not having significant bleeding in his stools, urine, vomit, etc, he needs this medication to protect him from having issues with his heart. Patient voiced understanding and was in agreement with the plan. 11/15/2024Prostate cancer screening (ICD-10 - Z12.5)Discussed PSA test with patient. Informed patient that current USPSTF guidelines do not have strong recommendation for routine PSA screenings. However, discussed that this test could help determine patients at risk for prostate cancer. He is aware of potential risks of screening test which include but are not limited to unnecessary procedures (ie. prostate biopsy, prostatectomy) and that these risks could result in adverse effects to the patient including impotence and incontinence. Patient voiced understanding and would like to proceed with prostate specific antigen screening at this time.12/16/2024History of atrial fibrillation (ICD-10 - Z86.79)Patient with hx of afib, in NSR today. TSH with annual labs wnl. Medication managed by cardiology. Discussed red flag symptoms that would warrant urgent evaluation. Patient voiced understanding and was in agreement with the plan.11/15/2024Mixed hyperlipidemia (ICD-10 - E78.2)Will check annual labs12/16/2024Mixed hyperlipidemia (ICD-10 - E78.2)Well controlled on current regimen. Continue at this time.05/19/2024OtherBody Mass Index: Care Instructions material was jmnyjuk0612/16/2024OtherBody Mass Index: Care Instructions material was printed Plan Of Treatment Pending Test Test Name Order Date XR finger RT 2nd digit 05/08/2025 XR hand RT min 3V* 05/08/2025 Next Appt Details Provider Name:Gerald Carranza, 06/08/2025 09:30:00 AM, [address], [place], [address], Insurance Providers Payer Name Payer Address Payer Phone Subscriber Number Group Number Insured Name Patient Relationship to Insured Coverage Start Date Coverage End Date [facility] [place] [address] [place] [address] [phone] [id number] BRITT ZENG Self - patient is the insured 3 [employer] MEDICAID SEC TO [employer] [address] [place] [id number], TERRYSelf - patient is the plaayin24 2018[facility] [place] [id number] SANJIV ZENGelf - patient is the teccocx25 2018[employer] [address] [place] [id number], TERRYSelf - patient is the [id number] Medical (General) History Medical History History ICD Code GERD 1970's HTN 1990sSleep Apnea - doesn''''t wear mask, claustophobicNeuropathy - bilateral legs 2000sosteopeniadepression 1979''''sRotator cuff tearHyperlipidemia ArthritisCoronary artery disease w stents- LysterA-fibCoronary artery disease involving peoria coronary artery of peoria heart without angina crswripjH26.10 Type 2 diabetes mellitus with unspecified cfanqzikknqzwO55.8Barrett's Esophagus AfjcteieuV59.10Unspecified fracture of lower end of left tibia, initial encounter for closed arotyyqdP23.302AGarbled vsrcqwK83.89Dysphagia, unspecified typeR13.10Diabetes jrlglwesP57.9Type 2 diabetes mellitus with diabetic autonomic (poly)yahdoicdvyD79.03TlorwoufpnqzD40.5Major depressive disorder, single episode, xvnikefwgwiJ82.9High bhfoqcaiyddwvD10.1Internal derangement of right kneeM23.61GqtahfubxJ86.10Osteoarthritis of right sternoclavicular wvyioL42.011 Primary osteoarthritis of right kneeM17.11Surgical History Surgery Date(Month/Year) hernia exploratory lap - no findings EGD 1989 tonsillectomy Heart cath w 2 stentsfeb 2012Heart Cath with placement of 2 more stents.2013Heart Cath with stent dkwwrazav25/2018BIOPSY OF THE BDSPBF38/2020Cataract extraction-OD08/2020Heart stent xygzkm89/2024Heart cath12/07/24Hospitalization History Reason Date(Month/Year) took wrong DM medication 2009 A-FIB 05/2024 A FIB 05/22 a fib 04/21 CAD, Angina 03/2018 Atrial Fib. 09/24/2016
--- OUTSIDE RECORDS SUMMARY | 2025-05-09 12:22 | XMS_ITS | Clinical Summary ---
Author Organization [facility] Address [address] [place] [address], [address] [place] [address] Care Team Providers Care Pediatric Oncology Nurse Name Role Phone Unavailable Primary Care Provider Unavailabl e Social History Tobacco UseTypesPacks/DayYears UsedDateSmoking Tobacco: Never AssessedSex and Gender InformationValueDate RecordedSex Assigned at BirthNot on fileLegal Sex Male08/08/2012 8:51 PM ESTGender IdentityNot on fileSexual OrientationNot on file Plan of Treatment Not on file
--- NOTE | 2025-05-09 12:26 | XR_ITS ---
The [address] [address] Patient Name: BRITT ZENG MRN: [id number] date: 1955 Sex: M Assigned Patient Location: ER Current Patient Location: ED.MAIN Accession/Order Number: [id number] Exam Date: 05/09/2025 12:18 Report Date: 05/09/2025 12:48 At the request of: HAYDEE ROSALES DO Procedure: XR hand RT min 3V XR hand RT min 3V 05/09/2025 12:26 PM SIGNS AND SYMPTOMS: ^right index finger infection, h/o IDDM PROTOCOL: 3 views of the right hand COMPARISON: None FINDINGS: There is narrowing of the metacarpophalangeal joints and interphalangeal joints. There is no evidence of fracture or dislocation. No significant soft tissue swelling vascular calcifications are present in the soft tissues. XR/XR hand RT min 3V IMPRESSION: No acute bony injury. Degenerative changes are noted as above. Impression dictated by: Rusty Choi M.D. 05/09/2025 12:48 PM Dictation Location: [place] [address] Electronically authenticated by: [id number] Y Date: 05/09/2025 12:48
[2025-05-09 12:48] LABS: Hematocrit 49.7 % (42.0-54.0); Hemoglobin 16.5 g/dL (14.0-18.0); Immature Granulocytes Abs Auto 0.04 10^3/uL (0.00-0.03); Immature Granulocytes Pct Auto 0.7 % (0.0-0.5); Lymphocytes Absolute Auto 0.9 10^3/uL (1.2-3.8); Mean Corpuscular HGB Conc 33.2 g/dL (29.9-35.2); Mean Corpuscular Hemoglobin 31.5 pg (25.9-34.0); Mean Corpuscular Volume 94.8 fL (80.0-94.0); Platelet Count 202 10^3/uL (150-450); Red Blood Count 5.24 10^6/uL (4.70-6.10); White Blood Count 6.0 10^3/uL (4.0-11.0)
[2025-05-09] MEDS: VANCOMYCIN HCL 1,250 MG in 0.9 % SODIUM CHLORIDE 250 ML 166.667 MG IV (12:54)
[2025-05-09 13:09] LABS: Lactate/Lactic Acid 1.5 mmol/L (0.4-2.0)
[2025-05-09 13:15] LABS: Anion Gap 15.4; Blood Urea Nitrogen 27.0 mg/dL (7.0-18.0); Calcium 9.6 mg/dL (8.5-10.1); Carbon Dioxide 26.7 mmol/L (21.0-32.0); Chloride 101 mmol/L (98-107); Estimated GFR (African America >60 (>=60 mL/min/1.73m^2); Estimated GFR (Non-African Ame >60 (>=60 mL/min/1.73m^2); Glucose 229 mg/dL (74-106); Potassium 4.1 mmol/L (3.5-5.1); Sodium 139 mmol/L (136-145)
--- NOTE | 2025-05-09 13:35 | ED.GENADUL1 ---
HPI HPI - General Adult General Chief complaint: Skin/Abscess/Foreign Body Stated complaint: R FINGER LACERATION Time Seen by Provider: 05/09/25 12:01 Source: patient Mode of arrival: walk-in History of Present Illness HPI narrative: Patient is a 69-year-old male presenting to the emergency department for evaluation of right finger infection. Patient states that he scraped his finger on a dirty hitch 1 week ago. Since then, the scrape is gone worse and has not become infected. He saw his doctor yesterday, who states he needed to come to the hospital for evaluation. Patient states he has had pus drained from the wound. He states he has limited range of motion in the finger as well. He denies fevers or chills. He is a insulin-dependent type 2 diabetic. He has no other symptoms such as chest pain or shortness of breath. Related Data Previous Rx's ?Medication ?Instructions ?Recorded amoxicillin 875 mg-potassium 1 tab PO Q12H 10 days #20 tabs 05/09/25 clavulanate 125 mg tablet doxycycline hyclate 100 mg capsule 100 mg PO BID 7 days #14 caps 05/09/25 Allergies Allergy/AdvReac Type Severity Reaction Status Date / Time Sulfa (Sulfonamide Allergy Severe Unknown Verified 05/09/25 11:20 Antibiotics) Opioid HPI Opioid Management Most Recent Opioid Data: Last Pain Scale 6 Today, 12:02 Review of Systems ROS Status of ROS 10 or more systems reviewed and unremarkable except as noted in history and below PFSH PFSH Social History Little interest or pleasure in doing things: not at all Feeling down, depressed, or hopeless: not at all Exam Narrative Exam Narrative: CONSTITUTIONAL: Well-appearing, answering questions and following commands appropriately SKIN: Was warm and dry. EYES: Sclerae white. EARS, NOSE, THROAT: Moist oral mucosa. RESPIRATORY: Nonlabored respirations. CARDIOVASCULAR: Normal rate and regular rhythm. There is no S3, S4, murmur, rub. Cap refill less than 2 seconds in the left right index finger. GASTROINTESTINAL: Abdomen is nondistended. MUSCULOSKELETAL: On the posterior aspect of the right index finger, just proximal to the PIP joint, there is an ulcerative wound with purulent drainage. There is erythema surrounding the wound extending approximately to the MTP joint. The finger has severely limited range of motion with flexion. There is no tenderness along the flexor tendon sheath. There is no fusiform swelling. The finger is not held in passive extension. No crepitus. NEUROLOGIC: Patient is awake and alert. Sensation intact to light touch throughout the right index finger. Constitutional Vital Signs, click to edit/add: Last Vital Signs Temp 98.0 F 05/09/25 11:16 Pulse 82 05/09/25 11:16 Resp 18 05/09/25 11:16 BP 128/94 H 05/09/25 11:16 Pulse Ox 99 05/09/25 11:16 O2 Del Method Room Air 05/09/25 11:16 Course Vital Signs Vital signs: Vital Signs Temperature 98.0 F 05/09/25 11:16 Pulse Rate 82 05/09/25 11:16 Respiratory Rate 18 05/09/25 11:16 Blood Pressure 128/94 H 05/09/25 11:16 Pulse Oximetry 99 05/09/25 11:16 Oxygen Delivery Method Room Air 05/09/25 11:16 Temperature 98.0 F 05/09/25 11:16 Pulse Rate 82 05/09/25 11:16 Respiratory Rate 18 05/09/25 11:16 Blood Pressure 128/94 H 05/09/25 11:16 Pulse Oximetry 99 05/09/25 11:16 Oxygen Delivery Method Room Air 05/09/25 11:16 Medical Decision Making [facility] Narrative Medical decision making narrative: Patient 69-year-old male, history significant for insulin-dependent type 2 diabetes, presenting to the emergency department for infection of his right index finger x 1 week. His vital signs on arrival are within normal limits. He is afebrile and hemodynamically stable. Examination as noted above. The wound was debrided at the bedside and soaked in warm soapy water. My clinical impression is that the patient's symptoms are secondary to soft tissue infection, cellulitis, ulcerative wound, and possibly osteomyelitis. There is no crepitus to suggest necrotizing fasciitis. I have low concern for flexor tenosynovitis. Patient exhibits no systemic symptoms or signs of sepsis. IV was established and laboratory studies were obtained to evaluate for significant leukocytosis or other electrolyte/metabolic derangement. He was given a dose of antibiotics with IV Zosyn and IV vancomycin. X-rays were obtained. X-rays of the right hand independent reviewed and interpreted by myself and radiology demonstrated no acute bony injury, bony destruction, or evidence of subcutaneous emphysema. Laboratory studies were unremarkable. No significant electrolyte or metabolic derangement. No evidence of acute kidney injury. No anemia, leukocytosis, or thrombocytopenia. No transaminitis or hyperbilirubinemia. Mild elevation in ESR and CRP. I did consult and discussed patient with on-call orthopedic surgeon, Dr. Burt. He recommended bedside debridement, soaking, and outpatient follow-up in his clinic. I do believe the patient is stable for discharge. They were instructed to follow up with Dr. Burt within 1 week. Return precautions were given including any new or worsening symptoms. They were given a prescription for Augmentin and doxycycline. Patient understands and agrees to the plan.] FINAL IMPRESSION: #Acute soft tissue infection of the right index finger #History of insulin-dependent type 2 diabetes DISPOSITION: Discharged home CONDITION: Good Medical Records Medical records reviewed: Yes I reviewed the patient's medical records Lab Data Lab results reviewed: Yes I reviewed the patient's lab results Labs: Lab Results 05/09/25 Range/Units 12:38 WBC 6.0 (4.0-11.0) 10^3/uL RBC 5.24 (4.70-6.10) 10^6/uL Hgb 16.5 (14.0-18.0) g/dL Hct 49.7 (42.0-54.0) % MCV 94.8 H (80.0-94.0) fL MCH 31.5 (25.9-34.0) pg MCHC 33.2 (29.9-35.2) g/dL RDW 13.8 (11.0-15.0) % Plt Count 202 (150-450) 10^3/uL MPV 11.5 (9.5-13.5) fL Neut % (Auto) 73.1 (43.0-75.0) % Lymph % (Auto) 15.0 L (20.5-60.0) % Mariposa % (Auto) 9.2 (1.7-12.0) % Eos % (Auto) 1.3 (0.9-7.0) % Baso % (Auto) 0.7 (0.2-2.0) % Neut # (Auto) 4.4 (1.4-6.5) 10^3/uL Lymph # (Auto) 0.9 L (1.2-3.8) 10^3/uL Mariposa # (Auto) 0.6 (0.3-0.8) 10^3/uL Eos # (Auto) 0.1 (0.0-0.7) 10^3/uL Baso # (Auto) 0.0 (0.0-0.1) 10^3/uL Abs Immat Gran (auto) 0.04 H (0.00-0.03) 10^3/uL Imm/Tot Granulo (auto) 0.7 H (0.0-0.5) % ESR 39 H (<=20) mm/hr Sodium 139 (136-145) mmol/L Potassium 4.1 (3.5-5.1) mmol/L Chloride 101 (98-107) mmol/L Carbon Dioxide 26.7 (21.0-32.0) mmol/L Anion Gap 15.4 BUN 27.0 H (7.0-18.0) mg/dL Creatinine 1.10 (0.70-1.30) mg/dL Est GFR ( Amer) >60 (>=60 mL/min/1.73m^2) Est GFR (Non-Af Amer) >60 (>=60 mL/min/1.73m^2) BUN/Creatinine Ratio 24.5 Glucose 229 H (74-106) mg/dL Lactate 1.5 (0.4-2.0) mmol/L Calcium 9.6 (8.5-10.1) mg/dL C-Reactive Protein 0.73 H (<=0.50) mg/dL Imaging Data Right hand xray: Attestation: I personally reviewed and interpreted this imaging study as follows: Radiologist's impression: ITS Impressions Hand X-Ray 05/09/25 12:26 IMPRESSION: No acute bony injury. Degenerative changes are noted as above. Impression dictated by: Rusty Choi M.D. 05/09/2025 12:48 PM Dictation Location: [place] [address] Electronically authenticated by: [id number] Y Date: 05/09/2025 12:48 Discharge Plan Discharge Chief Complaint: Skin/Abscess/Foreign Body Clinical Impression: Finger infection Patient Disposition: Home, Self-Care Time of Disposition Decision: 13:47 Condition: Good Mode of Transportation: Private Vehicle Prescriptions / Home Meds: New doxycycline hyclate 100 mg capsule 100 mg PO BID 7 Days Qty: 14 0RF amoxicillin-pot clavulanate 875-125 mg tablet 1 tab PO Q12H 10 Days Qty: 20 0RF Print Language: Nicaraguan Instructions: Wound Infection (ED) Referrals: Celso Burt DO [Physician, Orthopedics] - 1 week Physician,Non-Staff, [Physician] - 1 week
[2025-05-09] MEDS: PIPERACILLIN SODIUM/TAZOBACTAM 4.5 GM in 0.9 % SODIUM CHLORIDE 50 ML IV (14:35)
== END 2025-05-09 15:22 | disposition home or self-care (01) ==
PROVIDERS: Emergency Provider Student in an Organized Health Care Education/Training Program
DX: L08.9 Local infection of the skin and subcutaneous tissue, unspecified (principal); E11.9 Type 2 diabetes mellitus without complications; Z79.4 Long term (current) use of insulin
CPT/HCPCS: 36415; 73130; 80048; 83605; 85025; 85652; 86140; 96365; 96366; 96367; 99285; J2543; J3373

== ENCOUNTER 2025-05-26 17:26 | Emergency (ER) | payer MEDICARE, MEDICAID, SELFPAY ==
--- OUTSIDE RECORDS SUMMARY | 2024-11-29 08:00 | XMS_ITS ---
Author Organization [facility] Servic es Address [address] [place] [address] Care Team Providers Care Carton Filling Machine Operator Name Role Phone Gerald Carranza Primary Care Provider [phone] Denita Arias Unavailable [phone] REASON FOR VISIT 2 week f/u,DM CHECK Encounters Encounter Location Date Provider Diagnosis [facility] Services [address] [place] [address] 11/29/2024 Denita Arias Plan Of Treatment Next Appt Details Provider Name:Gerald Carranza, 06/08/2025 09:30:00 AM, [address] [place], [address], Progress Notes * PRAFUL ZENGOB:1955 (69 yo M)Acc No.[id number]:11/29/2024 Progress Notes Patient: BRITT SEGURA Provider:?JOANNE ZAVALAOB:1955???Age: 69 Y???Sex:MaleDate:11/29/2024Phone:[phone]:[address] DP-[id number]:Gerald Carranza Subjective: * Chief Complaints: * 2 week f/u,DM CHECK Billing Information: * Procedure Codes: * Electronic signature of Denita Arias DO on 05/26/2025 at 05:53 PM ESTSign off status: Pending * Appointment Provider: Carrol BLANCO, Date: 0 11/29/2024 Generated for Printing/Faxing/eTransmitting on:?05/26/2025 05:53 PM EST
--- OUTSIDE RECORDS SUMMARY | 2024-12-14 08:30 | XMS_ITS ---
Author Organization [facility] Servic es Address [address] [place] [address] Care Team Providers Care Obstetrics Gynecology Md Name Role Phone Dillon Gerald Primary Care Provider Denita Arias Unavailable [phone] REASON FOR VISIT HOSP f/u Encounters Encounter Location Date Provider Diagnosis [facility] Services [address] [place] [address] 12/14/2024 Denita Arias Plan Of Treatment Next Appt Details Provider Name:Gerald Carranza, 06/08/2025 09:30:00 AM, [address] [place], [address], Progress Notes * PRAFUL ZENGOB:1955 (69 yo M)Acc No.[id number]:12/14/2024 Progress Note Patient: BRITT SEGURA Provider:?JOANNE ZAVALAOB:1955???Age: 69 Y???Sex:MaleDate:12/14/2024Phone:[phone]:[address] IM-[id number]:Gerald Carranza Subjective: * Chief Complaints: * H OSP f/u * Electronic signature of Denita Arias DO on 05/26/2025 at 05:54 PM ESTSign off status: Pending * Appointment Provider: Carrol BLANCO, DO Date: 0 12/14/2024 Generated for Printing/Faxing/eTransmitting on:?05/26/2025 05:54 PM EST
--- OUTSIDE RECORDS SUMMARY | 2024-12-23 04:00 | XMS_ITS ---
Author Organization [facility] Servic es Address [address] [place] [address] Care Team Providers Care Enrollment Management Director Name Role Phone Gerald Carranza Primary Care Provider Denita Arias Unavailable [phone] REASON FOR VISIT DM recheck Medications Medication SIG (Take, Route, Frequency, Duration) Notes Start Date End Date Status Ezetimibe 10 MG Tablet TAKE ONE TABLET BY MOUTH DAILY ActiveHumaLOG KwikPen 100 UNIT/ML Solution Pen-ljgsrmyp95 units Subcutaneous three times a day with meals; Duration: 30 daysActiveAtorvastatin Calcium 80 MG Tablet1 tablet Orally Once a dayActiveEsomeprazole Magnesium 40 MG Capsule Delayed Release1 capsule 1/2 to 1 hour before morning meal Orally twice a day ActiveVitamin B12 100 MCG Tabletas directed OrallyActiveMelatonin 3 MG Tablet1 tablet at bedtime as needed Orally Once a day; Duration: 30 daysActiveFreeStyle Nan 14 Day Sensor - Miscellaneous1 sensor; Duration: 28 daysActiveJardiance 25 MG TabletTAKE 1 TABLET BY MOUTH DAILYActiveLantus SoloStar 100 UNIT/ML Solution Pen- units Subcutaneous dailyActiveIsosorbide Mononitrate ER 120 MG Tablet Extended Release 24 HourOral; Duration: 30 DaysActiveFreeStyle Nan 2 Sensor - Miscellaneousup to 3 times a day; Duration: 28 daysActiveInsulin Glargine Solostar 100 UNIT/ML Solution Pen-oxqnkjht97 units Subcutaneous daily ActiveNystatin 418169 UNIT/ML Suspension4 mL Mouth/Throat Four times a dayActive Olopatadine HCl 0.2 % Solution1 drop into each eye Ophthalmic Once a day; Duration: 30 days5ActivePen [place] 5/16 31G X 8 MM MiscellaneousUSE ONE NEEDLE TO INJECT INSULIN ONCE DAILY; Duration: 30 daysActiveNitroglycerin 0.4 MG Tablet Sublingualas directed SublingualActiveMetoclopramide HCl 10 MG Tablet1 tablet before meals Orally three times a day; Duration: 30 day(s)Active Amiodarone HCl 200 MG Tablet1 tablet Orally twice dailyActiveXarelto 20 MG Tablet1 tablet with food Orally Once a dayActiveClopidogrel Bisulfate 75 MG TabletTAKE 1 TABLET BY MOUTH DAILY FOR 7 DAYS; Duration: 7ActiveMetoprolol Tartrate 50 MG Tablet1 tablet with food Orally Twice a dayActive Encounters Encounter Location Date Provider Diagnosis [facility] Services [address] [place] [address] 12/23/2024 Denita Arias Plan Of Treatment Next Appt Details Provider Name:Gerald Carranza, 06/08/2025 09:30:00 AM, [address] [place], [address], Progress Notes * PRAFUL ZENGOB:1955 (69 yo M)Acc No.[id number]:12/23/2024 Progress Notes Patient: BRITT SEGURA Provider:?JOANNE ZAVALAOB:1955???Age: 69 Y???Sex:MaleDate:12/23/2024Phone:[phone]:[address] [place], [place]-[id number]:Gerald Carranza Subjective: * Chief Complaints: * D M recheck * Medications: T akingVitamin B12 100 MCG Tablet as directed Orally Esomeprazole Magnesium 40 MG Capsule Delayed Release 1 capsule 1/2 to 1 hour before morning meal Orally twice a day Metoprolol Tartrate 50 MG Tablet 1 tablet with food Orally Twice a day Xarelto 20 MG Tablet 1 tablet with food Orally Once a day Amiodarone HCl 200 MG Tablet 1 tablet Orally twice daily Metoclopramide HCl 10 MG Tablet 1 tablet before meals Orally three times a day Nitroglycerin 0.4 MG Tablet Sublingual as directed Sublingual Clopidogrel Bisulfate 75 MG Tablet TAKE 1 TABLET BY MOUTH DAILY FOR 7 DAYS FreeStyle Nan 2 Sensor - Miscellaneous up to 3 times a day Insulin Glargine Solostar 100 UNIT/ML Solution Pen-injector 25 units Subcutaneous daily Pen [place] 5/16 31G X 8 MM Miscellaneous USE ONE NEEDLE TO INJECT INSULIN ONCE DAILY Olopatadine HCl 0.2 % Solution 1 drop into each eye Ophthalmic Once a day Nystatin 099696 UNIT/ML Suspension 4 mL Mouth/Throat Four times a day Isosorbide Mononitrate ER 120 MG Tablet Extended Release 24 Hour Oral Lantus SoloStar 100 UNIT/ML Solution Pen-injector 35 units Subcutaneous daily Jardiance 25 MG Tablet TAKE 1 TABLET BY MOUTH DAILY FreeStyle Nan 14 Day Sensor - Miscellaneous 1 sensor Melatonin 3 MG Tablet 1 tablet at bedtime as needed Orally Once a day Ezetimibe 10 MG Tablet TAKE ONE TABLET BY MOUTH DAILY Atorvastatin Calcium 80 MG Tablet 1 tablet Orally Once a day HumaLOG KwikPen 100 UNIT/ML Solution Pen-injector 10 units Subcutaneous three times a day with meals Taking Vitamin B12 100 MCG Tablet as directed Orally Taking Esomeprazole Magnesium 40 MG Capsule Delayed Release 1 capsule 1/2 to 1 hour before morning meal Orally twice a day Taking Metoprolol Tartrate 50 MG Tablet 1 tablet with food Orally Twice a day Taking Xarelto 20 MG Tablet 1 tablet with food Orally Once a day Taking Amiodarone HCl 200 MG Tablet 1 tablet Orally twice daily Taking Metoclopramide HCl 10 MG Tablet 1 tablet before meals Orally three times a day Taking Nitroglycerin 0.4 MG Tablet Sublingual as directed Sublingual Taking Clopidogrel Bisulfate 75 MG Tablet TAKE 1 TABLET BY MOUTH DAILY FOR 7 DAYS Taking FreeStyle Nan 2 Sensor - Miscellaneous up to 3 times a day Taking Insulin Glargine Solostar 100 UNIT/ML Solution Pen-injector 25 units Subcutaneous daily Taking Pen [place] 5/16 31G X 8 MM Miscellaneous USE ONE NEEDLE TO INJECT INSULIN ONCE DAILY Taking Olopatadine HCl 0.2 % Solution 1 drop into each eye Ophthalmic Once a day Taking Nystatin 506380 UNIT/ML Suspension 4 mL Mouth/Throat Four times a day Taking Isosorbide Mononitrate ER 120 MG Tablet Extended Release 24 Hour Oral Taking Lantus SoloStar 100 UNIT/ML Solution Pen-injector 35 units Subcutaneous daily Taking Jardiance 25 MG Tablet TAKE 1 TABLET BY MOUTH DAILY Taking FreeStyle Nan 14 Day Sensor - Miscellaneous 1 sensor Taking Melatonin 3 MG Tablet 1 tablet at bedtime as needed Orally Once a day Taking Ezetimibe 10 MG Tablet TAKE ONE TABLET BY MOUTH DAILY Taking Atorvastatin Calcium 80 MG Tablet 1 tablet Orally Once a day Taking HumaLOG KwikPen 100 UNIT/ML Solution Pen-injector 10 units Subcutaneous three times a day with meals Billing Information: * Procedure Codes: * Electronic signature of Denita Arias DO on 05/26/2025 at 05:53 PM ESTSign off status: Pending * Appointment Provider: Carrol BLANCO DO Date: 0 12/23/2024 Generated for Printing/Faxing/eTransmitting on:?05/26/2025 05:53 PM EST
--- OUTSIDE RECORDS SUMMARY | 2025-01-05 04:00 | XMS_ITS ---
Author Organization [facility] Servic es Address [address] [place] [address] Care Team Providers Care High School Guidance Counselor Name Role Phone Nainashantel Gerald Primary Care Provider Denita Arias Unavailable [phone] REASON FOR VISIT KANNAN MARYJANE Escamilla Encounters Encounter Location Date Provider Diagnosis [facility] Services [address] [place] [address] 01/05/2025 Gerald Carranza Plan Of Treatment Next Appt Details Provider Name:Gerald Carranza, 06/08/2025 09:30:00 AM, [address] [place], [address], Progress Notes * PRAFUL ZENGOB:1955 (69 yo M)Acc No.[id number]:01/05/2025 Progress Notes Patient: BRITT SEGURA Provider:?JOANNE DowOB:1955???Age:69 Y???Sex:MaleDate:01/05/2025Phone:[phone]:[address] [place], [place]-[address] Subjective: * Chief Complaints: * T MARYJANE Lee * Electronic signature of Gerald Carranza DO on 05/26/2025 at 05:53 PM ESTSign off status: Pending * Appointment Provider: Joceline Carranza DO Date: 0 01/05/2025 Generated for Printing/Faxing/eTransmitting on:?05/26/2025 05:53 PM EST
[2025-05-26 17:30] VITALS: BP 136/89; PULSE 107; TEMP 36.6; O2SAT 100; BMI 28.3
--- NOTE | 2025-05-26 17:39 | XR_ITS ---
The [place] [id number] Patient Name: BRITT ZENG MRN: [id number] date: 1955 Sex: M Assigned Patient Location: ER Current Patient Location: ED.MAIN Accession/Order Number: [id number] Exam Date: 05/26/2025 17:48 Report Date: 05/26/2025 18:36 At the request of: MANDO MCGARRY MD Procedure: XR abdomen 1V X-ray view abdomen Indication possible constipation. COMPARISON: None FINDINGS: Moderate to large colonic stool burden. No evidence of small bowel obstruction. No radiopaque calcifications overlying the renal shadows. Degenerative changes lumbosacral junction. XR/XR abdomen 1V IMPRESSION: Large colonic stool burden may raise possibility for constipation. Impression dictated by: Sudarshan Redd M.D. 05/26/2025 6:36 PM Dictation Location: [place] [address] Electronically authenticated by: [id number] Y Date: 05/26/2025 18:36
--- NOTE | 2025-05-26 17:40 | ED.GENADUL1 ---
HPI HPI - General Adult General Chief complaint: Abdominal Pain Stated complaint: Abdominal Pain Time Seen by Provider: 05/26/25 17:32 Source: patient Mode of arrival: walk-in Limitations: no limitations History of Present Illness HPI narrative: 69-year-old male presenting to the emergency department for chief complaint of constipation. He states he has not had a bowel movement for 8 days. He is not on iron pills or pain medication. He tried numerous mixy-hfp-sifnnlc modalities at home including MiraLAX. Related Data Home Medications ?Medication ?Instructions ?Recorded ?Confirmed atorvastatin 80 mg tablet mg 05/26/25 clopidogrel 75 mg tablet mg 05/26/25 empagliflozin 25 mg tablet mg 05/26/25 (Jardiance) insulin glargine 100 unit/mL (3 unit subcut 05/26/25 mL) subcutaneous pen (Lantus Solostar U-100 Insulin) insulin lispro 100 unit/mL subcut 05/26/25 subcutaneous pen (Humalog KwikPen (U-100) Insulin) metoprolol succinate 25 mg mg PO 05/26/25 tablet,extended release 24 hr nystatin 100,000 unit/mL oral 05/26/25 suspension Previous Rx's ?Medication ?Instructions ?Recorded amoxicillin 875 mg-potassium 1 tab PO Q12H 10 days #20 tabs 05/09/25 clavulanate 125 mg tablet Allergies Allergy/AdvReac Type Severity Reaction Status Date / Time Sulfa (Sulfonamide Allergy Severe Unknown Verified 05/26/25 17:30 Antibiotics) Opioid HPI Opioid Management Most Recent Opioid Data: Last Pain Scale 8 Today, 17:30 Review of Systems ROS Narrative A ten point review of systems is negative except as noted above. PFSH PFSH Social History Little interest or pleasure in doing things: not at all Feeling down, depressed, or hopeless: not at all Exam Narrative Exam Narrative: Nurses note and vital signs reviewed General:The patient appears well and in no apparent distress. Skin:Warm, dry, no pallor noted.There is no rash noted. Head:Normocephalic, atraumatic Eye: Normal conjunctiva, no drainage Ears, Nose, Mouth, and Throat: oral mucosa is moist. Nares patent. Cardiovascular:Regular Rate and Rhythm Respiratory:Patient is in no distress, no accessory muscle use, lungs are clear to auscultation, no wheezing, rales or rhonchi Back:non-tender GI: Soft and no tenderness. Musculoskeletal: The patient has no evidence of calf tenderness, no pitting edema, symmetrical pulses noted bilaterally Neurological:A&O, normal speech Psychiatric:Cooperative Constitutional Vital Signs, click to edit/add: Last Vital Signs Temp 97.9 F 05/26/25 17:30 Pulse 107 H 05/26/25 17:30 Resp 18 05/26/25 17:30 BP 136/89 05/26/25 17:30 Pulse Ox 100 05/26/25 17:30 Course Vital Signs Vital signs: Vital Signs Temperature 97.9 F 05/26/25 17:30 Pulse Rate 107 H 05/26/25 17:30 Respiratory Rate 18 05/26/25 17:30 Blood Pressure 136/89 05/26/25 17:30 Pulse Oximetry 100 05/26/25 17:30 Temperature 97.9 F 05/26/25 17:30 Pulse Rate 107 H 05/26/25 17:30 Respiratory Rate 18 05/26/25 17:30 Blood Pressure 136/89 05/26/25 17:30 Pulse Oximetry 100 05/26/25 17:30 Medical Decision Making MDM Narrative Medical decision making narrative: The patient is significantly constipated and is ordered an enema. The patient is signed out to Dr. Reyes at change of shift. Differential Diagnosis Differential Diagnosis: Constipation Imaging Data Abdominal x-ray: Radiologist's impression: ITS Impressions Abdomen X-Ray 05/26/25 17:39 IMPRESSION: Large colonic stool burden may raise possibility for constipation. Impression dictated by: Sudarshan Redd M.D. 05/26/2025 6:36 PM Dictation Location: [facility] Electronically authenticated by: [id number] Y Date: 05/26/2025 18:36 Discharge Plan Discharge Patient Disposition: Still a Patient
--- OUTSIDE RECORDS SUMMARY | 2025-05-26 17:53 | XMS_ITS | Clinical Summary ---
Author Organization [facility] Address [facility] [place] [address] Care Team Providers Care Shoe Patternmaker Name Role Phone Orville Friedman DO Primary Care Provider [phone] Sherice Washington(Historical) Unavailable + Lavonne Sraabia MD Unavailable [phone] Denita Escamilla DO Unavailable [phone] Allergies Active AllergyReactionsCriticalityNoted DateCommentsSulfa (Sulfonamide Antibiotics)Qitslctb02/01/2015 blew up like a balloon Medications MedicationSigDispense [...] leg with routine healing 03/18/2016Closed right ankle opufuuaq62/10/2016Strain of right knee and leg 12/07/2015Intradural mass12/07/20158041Opxizlyxufxg78/01/2015SHD (arteriosclerotic heart disease)09/27/2014Type II or unspecified type diabetes mellitus with other specified manifestations, qasdvyowzzmq04/01/2941Dumpfaaejwmxvvbwraxv29/01/2015 Xdwynrylgqly70/01/9033Kwtnjzv56/01/2015Diabetes mellitusGERD (gastroesophageal reflux disease)Former smoker Overview (12/07/2015): smoked cigars rarely Family History Medical HistoryRelationCommentsCancerFatherdied at age 62HypertensionFatherCHF [Other]Motherdied at age 95RelationStatusCommentsFatherMother Social History Tobacco UseTypesPacks/DayYears UsedDateSmoking Tobacco: FormerCigars Tobacco Cessation:Counseling Given: Not Answered Comments:cigar smoking on occasion Alcohol UseStandard Drinks/WeekCommentsYes0 (1 standard drink = 0.6 oz pure alcohol)socialArea Deprivation IndexAnswerDate RecordedNational Score (1-100), lower number is lower brze542203/04/2023State Score (1-10), lower number is lower hlan0133Data from: https://www.neighborhoodatlas.medicine.[facility].edu/. 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 on fileNot on fileNot on file Last Filed Vital Signs Vital SignReadingTime TakenCommentsBlood Xetyxafb749/6606/16/2023 10:50 AM EST Naxuh200606/16/2023 10:50 AM WJOQknkdzisgyu66.5 ??C (97.7 ??F)06/16/2023 9:41 AM ESTRespiratory Wmfa198608/17/2022 10:50 AM ESTOxygen Ixuelvofyh22%06/16/2023 10:50 AM ESTInhaled Oxygen Concentration--Nwhbmt80.4 kg (175 lb)06/16/2023 9:41 AM XSPRhkuay484.1 cm (5' 5 )06/16/2023 9:41 AM ESTBody Mass Index29.12108/17/2022 9:41 AM EST Plan of Treatment Health MaintenanceDue DateLast DoneCommentsAbdominal Aortic Aneurysm Screening 1953 5841MnB7T97/29/1959Diabetic Foot Exam1963Dilated Retinal Exam 1963Urine Albumin:Creatinine Ratio1963Annual PCP Team Chronic Disease Visit1971Anxiety Ifvtdqkju56/29/1972Depression Kkiwpbpyw33/29/1972 Hepatitis C Hdsjdimpd75/29/1972LDL Rppydrdgfdb85/29/1972DTaP,Tdap,Td Vaccine (1 - Tdap)1972CT Phjqugwqgeol66/29/1999Cologuard (FIT-DNA)1998 Bekxhhffflu24/29/1999Colorectal Cancer Kwhhnjolh24/29/1999Fecal Occult Blood 07/27/19982141Vcfdpefwrhviy96/29/1999Shingrix Vaccine (1 of 2)2003RSV Vaccine (1 - Risk 60-74 years 1-dose series)2013Pneumococcal Vaccine: 50+ (2 of 2 - PCV)Advance Directive Ipwpartjfp49/01/2025Medicare Advantage Annual Wellness Visit5Covid-19 Vaccine ( - 2024- season) 5108/13/2020, 10/20/2020, 09/22/2020Influenza Vaccine (#1)2025 06/25/2022, 05/10/2018, 04/10/2016 Insurance Care Teams Team MemberRelationshipSpecialtyStart DateEnd Orville Friedman DO PCP - GeneralFamily Medicine11/18/15 Sherice Washington(Historical)MD ReferringFamily Medicine11/26/18 Lavonne Sarabia MD ReferringFamily Medicine02/16/20 Denita Escamilla DO [address] [place] [address] ReferringFamily Medicine02/09/23
--- OUTSIDE RECORDS SUMMARY | 2025-05-26 17:54 | XMS_ITS | Patient Health Record ---
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 Name Role Phone Nainashantel Gerald Primary Care Provider Denita Arias Unavailable [phone] Diego Saldana Unavailable [phone] Allergies Allergen (clinical drug ingredient) Drug/Non Drug Allergy documented on EMR Reaction Allergy Type Onset Date Status semaglutide Ozempic stomach upset Drug Allergy ActivegabapentinGabapentinUnknownDrug AllergyActivemetforminMetforminUnknownDrug AllergyActivesulfacetamideSulfacetamideUnknownDrug AllergyActive Results Component Value Reference Range Flag Notes A1C with Estimated Average G joe Reviewed date:11/16/2024 10:48:33 AM Interpretation: Performing Lab:, [facility], [place] Notes/Report: Reason for Exam Type 2 diabetes mellitus with unspecified complications Hemoglobin A1C 10.7 4.3-5.6 % H Increased risk for diabetes: 5.7 - 6.4 diabetes: >6.4 glycemic control for adults with diabetes: <7.0 Estimated Average Glucose 260 Creatine Kinase Reviewed date:12/21/2024 09:14:33 PM Interpretation: Performing Lab:, [facility], [place] Notes/Report:Creatine Brztsd6279-871 U/LNComprehensive Metabolic Panel Reviewed date:12/21/2024 09:14:39 PM Interpretation: Performing Lab:, [facility], [place] Notes/Report:Skbinpn10975-445 mg/dLH Random Glucose Reference Range is dependent on time and content of last meal. Glucose of more than 200 mg/dL in a nonstressed, ambulatory subject supports the diagnosis of Diabetes Mellitus. ADA recommended reference range Blood Urea Vgsjiaqk120-77 mg/dLNCreatinine1.040.70-1.30 mg/cAOMvddhf860578-510 mmol/LNPotassium4.13.5-5.1 mmol/HNTsgvvebi29277-942 mmol/LNCarbon Ktqujaw42.9 21.0-31.0 mmol/LNCalcium8.88.6-10.3 mg/dLNTotal Protein6.86.4-8.9 g/dLNAlbumin Level4.13.5-5.7 g/dLNGlobulin2.7Albumin/Globulin Ratio1.5Bilirubin,Total0.70.3- 1.0 mg/dLNAspartate Amino Upgbqqvxbxe5037-81 U/LNAlanine Kdfhlmlfmrmbunye949-51 U/LNAlkaline Uvswjkemefp5925-724 U/LNEstimated GFR>60.0Anion Gap10.26.0-15.0N Creatinine Clr Calc Jnkjctdn83.72Complete Blood Count Auto Diff Reviewed date:12/21/2024 09:15:10 PM Interpretation: Performing Lab:, [facility], [address], [place] Notes/Report:White Blood Count4.64.1-10.5 [CFU]/mLNUncorrected WBC4.64.1-10.5 10*3/uLNRed Blood Count4.423.90-5.60 10*6/eFMKrnwqaqyvn35.913.0-17.0 g/dLN Voepdhqjqb29.538.8-50.0 %NMean Corpuscular Aoakcr99.983.5-101 fLNMean Corpuscular Fttxmgrrwl88.527.5-35.2 pgNMean Corpuscular HGB Conc33.532.5-35.6 g/dLNRed Cell Distribution Width14.212.0-14.8 %NPlatelet Yokgr797446-593 10*3/uL NMean Platelet Volume9.56.6-10.1 fLNNeutrophils % (Auto)58.5. %Lymphocytes % (Auto)23.3. %Monocytes % (Auto)15.1. %Eosinophils % (Auto)2.1. %Basophils % (Auto)1.0. %NRBC%0.10-0.5 /100{WBC}NNeutrophils # (Auto)2.71.8-7.7 10*3/uLN Lymphocytes # (Auto)1.11.00-4.8 10*3/uLNMonocytes # (Auto)0.70.0-0.8 10*3/uLN Eosinophils # (Auto)0.10.0-0.45 10*3/uLNBasophils # (Auto)0.00.0-0.2 10*3/uLN Monocyte Distribution Width17.690.00-20.00 %NUrinalysis Reviewed date:12/21/2024 09:14:45 PM Interpretation: Performing Lab:, [facility], [address], [place] Notes/Report: Name Collection Type:: Clean-Voided MidstreamColor,UrineLight-YellowYellow Appearance,UrineClearClearSpecificy [place],Urine1.0331.001-1.030HpH,Urine5.0 5.0-9.0NLeukocyte Esterase,UrineNegativeNegativeNitrite,UrineNegativeNegative Protein,UrineNegativeNegative mg/dLGlucose,Urine (UA)>=1000Normal mg/dL Ketones,UrineNegativeNegativeUrobilinogen,UrineNormalNormal mg/dLBilirubin,Urine NegativeNegativeOccult Blood,UrineNegativeNegativeTroponin I High Sensitivity Reviewed date:12/21/2024 09:14:28 PM Interpretation: Performing Lab: Notes/Report: The Troponin units of report have been changed to meet the Chest Pain Accreditation requirement, element EC5.M1l2. Troponin units are changed from pg/ml to ng/L. Also, the decimal is removed and results are in whole numbers.Troponin I High Sensitivity4 0-20NTroponin I High Sensitivity Reviewed date:12/05/2024 08:26:23 AM Interpretation: Performing Lab: Notes/Report: The Troponin units of report have been changed to meet the Chest Pain Accreditation requirement, element EC5.M1l2. Troponin units are changed from pg/ml to ng/L. Also, the decimal is removed and results are in whole numbers.Troponin I High Sensitivity6 0-20NComplete Blood Count Auto Diff Reviewed date:12/05/2024 08:26:40 AM Interpretation: Performing Lab:, [facility], [address] [place] Notes/Report:White Blood Count4.74.1-10.5 10*3/uLNUncorrected WBC4.74.1-10.5 10*3/uLNRed Blood Count4.863.90-5.60 10*6/dWZUifjnhxrzk37.313.0-17.0 g/dLN Mdqpdbmqpi03.738.8-50.0 %NMean Corpuscular Zmjmul02.183.5-101 fLNMean Corpuscular Nnnvutbsgh30.427.5-35.2 pgNMean Corpuscular HGB Conc33.432.5-35.6 g/dLNRed Cell Distribution Width14.312.0-14.8 %NPlatelet Tegnw162212-414 10*3/uL NMean Platelet Volume9.66.6-10.1 fLNNeutrophils % (Auto)57.7. %Lymphocytes % (Auto)28.2. %Monocytes % (Auto)11.2. %Eosinophils % (Auto)2.0. %Basophils % (Auto)0.9. %NRBC%0.10-0.5 /100{WBC}NNeutrophils # (Auto)2.71.8-7.7 10*3/uLN Lymphocytes # (Auto)1.31.00-4.8 10*3/uLNMonocytes # (Auto)0.50.0-0.8 10*3/uLN Eosinophils # (Auto)0.10.0-0.45 10*3/uLNBasophils # (Auto)0.00.0-0.2 10*3/uLN Monocyte Distribution Width18.950.00-20.00 %NProthrombin Time INR Reviewed date:12/05/2024 08:26:10 AM Interpretation: Performing Lab:, [facility], [address] [place] Notes/Report: REDRAW: PRIOR SAMPLE QNSProthrombin Time11.29.0-12.9 sN A hematocrit value greater than 55% may lead to inaccurate results in coagulation testing. Patients having hematocrit values >55% require a special collection tube for coagulation studies. Please contact the laboratory at [phone] for redraw instructions. INR1.0 INR Therapeutic Range [...] with mechanical heart valves: 3 - 4.5 Creatine Kinase Reviewed date:12/05/2024 08:26:33 AM Interpretation: Performing Lab:, [facility], [address] , [place] Notes/Report:Creatine Rgjjkf54572-688 U/LNB-Type Natriuretic Peptide Reviewed date:12/05/2024 08:26:15 AM Interpretation: Performing Lab:, [facility], [address] , [place] Notes/Report:B-Type Natriuretic Fuaiozg13.05-100 pg/mLNBasic Metabolic Panel Reviewed date:12/05/2024 08:26:28 AM Interpretation: Performing Lab:, [facility], [facility] [address] [place] Notes/Report:Tnxujnn13212-793 mg/dLH Random Glucose Reference Range is dependent on time and content of last meal. Glucose of more than 200 mg/dL in a nonstressed, ambulatory subject supports the diagnosis of Diabetes Mellitus. ADA recommended reference range Blood Urea Tpuvuxwe129-27 mg/aMLYebmah496718-932 mmol/LNPotassium4.03.5-5.1 mmol/LN Hemolysis is present at a level that could interfere with the result. Contact lab if redraw is required Jntqrjgz54516-803 mmol/LNCarbon Dptrhle62.221.0-31.0 mmol/LNCalcium9.18.6-10.3 mg/dLNCreatinine0.900.70-1.30 mg/dLNEstimated GFR>60.0Anion Gap11.86.0-15.0 meq/LNCreatinine Clr Calc Nmnpfwpi21.94Urinalysis Reviewed date:12/05/2024 08:26:45 AM Interpretation: Performing Lab:, [facility], [place] Notes/Report: Name Collection Type:: Clean-Voided MidstreamColor,UrineLight-YellowYellow Appearance,UrineClearClearSpecificy [place],Urine1.0291.001-1.030NpH,Urine5.5 5.0-9.0NLeukocyte Esterase,UrineNegativeNegativeNitrite,UrineNegativeNegative Protein,UrineNegativeNegativeGlucose,Urine (UA)>=1000Normal mg/dLHKetones,Urine NegativeNegativeUrobilinogen,UrineNormalNormalBilirubin,UrineNegativeNegative Occult Blood,UrineNegativeNegativePSA Screen (Yearly) w/Reflex Reviewed date:11/15/2024 08:44:54 PM Interpretation: Performing Lab:, [facility], [place] Notes/Report: Reason for Exam Prostate cancer screeningPSA Screen (Yearly) w/Reflex0.6600.000- 4.000 ng/mLN Serial tumor marker results determined by assays using different manufacturers or methods may not be comparable. 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 LDL Cholesterol Measured Reviewed date:11/15/2024 08:44:50 PM Interpretation: Performing Lab: Notes/Report: Reason for Exam Type 2 diabetes mellitus with unspecified complications Reason for Exam Mixed hyperlipidemia Reason for Exam History of atrial fibrillationLDL Cholesterol Yjulhzzb174-802 mg/dLN LDL ATP III CLASSIFICATION LDL less than 100 mg/dL Optimal LDL 100-129 mg/dL Near or above optimal LDL 130-159 mg/dL Borderline high LDL 160-189 mg/dL High LDL greater than 189 mg/dL Very high Complete Blood Count Auto Diff Reviewed date:11/15/2024 08:45:23 PM Interpretation: Performing Lab:, [facility], [address], [place] Notes/Report: Reason for Exam Type 2 diabetes mellitus with unspecified complicationsWhite Blood Count4.54.1-10.5 10*3/uLNUncorrected WBC4.54.1-10.5 10*3/uLNRed Blood Count5.083.90-5.60 10*6/yCSSappbaekxx31.813.0-17.0 g/dLN Qohbjvckzo77.138.8-50.0 %NMean Corpuscular Sgdrcz75.683.5-101 fLNMean Corpuscular Vyikhxsznb78.127.5-35.2 pgNMean Corpuscular HGB Conc32.932.5-35.6 g/dLNRed Cell Distribution Width14.812.0-14.8 %NPlatelet Meivt866782-976 10*3/uL NMean Platelet Ugnbkv40.76.6-10.1 fLHNeutrophils % (Auto)60.0. %Lymphocytes % (Auto)25.3. %Monocytes % (Auto)11.7. %Eosinophils % (Auto)2.5. %Basophils % (Auto)0.5. %NRBC%0.10-0.5 /100{WBC}NNeutrophils # (Auto)2.71.8-7.7 10*3/uLN Lymphocytes # (Auto)1.11.00-4.8 10*3/uLNMonocytes # (Auto)0.50.0-0.8 10*3/uLN Eosinophils # (Auto)0.10.0-0.45 10*3/uLNBasophils # (Auto)0.00.0-0.2 10*3/uLN Thyroid Stim Hormone w/Rflx Reviewed date:11/15/2024 08:45:00 PM [...] hyperlipidemia Reason for Exam History of atrial ekvnsldazsyvYtiwqvrpcnq682354-015 mg/dLL Chol less than 200 mg/dl low risk Chol 201-239 mg/dl borderline risk Chol 240 mg/dl and greater high risk HDL Pwvbhyelycn4012-68 mg/dLN HDL CHOL ATP-III CLASSIFICATION Cardiovascular Risk HDL > or equal to 60 mg/dL LOW HDL < 40 mg/dL HIGH Triglyceride w/Pjdbbg2596-966 mg/dLH TRIG ATP III CLASSIFICATION TRIG less than 150 mg/dL Normal TRIG 150-199 mg/dL Borderline high TRIG 200-500 mg/dL High TRIG greater than 500 mg/dL Very high Standard traceable to the Center for Disease Conrtrol and Prevention (CDC) test method. LDL Cholesterol,Xiskbgxeto699-377 mg/dLN LDL ATP III CLASSIFICATION LDL less than 100 mg/dL Optimal LDL 100-129 mg/dL Near or above optimal LDL 130-159 mg/dL Borderline high LDL 160-189 mg/dL High LDL greater than 189 mg/dL Very high VLDL NVPRUIAPNNF11Rrnp/HDL Ratio3.2<5.0Comprehensive Metabolic Panel Reviewed date:11/15/2024 08:45:11 PM Interpretation: Performing Lab:, [facility], [address] [place] Notes/Report: Reason for Exam Type 2 diabetes mellitus with unspecified complications Reason for Exam Mixed hyperlipidemia Reason for Exam History of atrial sqwsdldeeeuoNbxnkox90204-648 mg/dLH Random Glucose Reference Range is dependent on time and content of last meal. Glucose of more than 200 mg/dL in a nonstressed, ambulatory subject supports the diagnosis of Diabetes Mellitus. ADA recommended reference range Blood Urea Hwyzklbf199-49 mg/dLNCreatinine1.010.70-1.30 mg/pAXJssdtp926649-965 mmol/LNPotassium4.63.5-5.1 mmol/JXTxawegwn88320-209 mmol/LNCarbon Amdjttr01.3 21.0-31.0 mmol/LNCalcium9.68.6-10.3 mg/dLNTotal Protein7.46.4-8.9 g/dLNAlbumin Level4.43.5-5.7 g/dLNGlobulin3.0Albumin/Globulin Ratio1.5Bilirubin,Total0.50.3- 1.0 mg/dLNAspartate Amino Wqnnbxfgmvg6989-49 U/LNAlanine Mkkuxvtovrgrxffz642-85 U/LNAlkaline Yficrnaeilq0289-800 U/LNEstimated GFR>60.0Anion Gap12.36.0-15.0 meq/LNMicroAlb Creat Ratio,U Reviewed date:11/15/2024 08:45:30 PM Interpretation: Performing Lab:, [facility], [address], [place] Notes/Report: Reason for Exam Type 2 diabetes mellitus with unspecified complicationsMicroalbumin, Urine1.50.0-1.8 mg/dLNCreatinine, Urine (Random)30.00 No reference range establishedMicroalbumin/Creatinine Ratio50.00.0-30.0 mg/gH 30-300 mg/g indicates an increased risk for diabetic nephropathy. Greater than 300 mg/g is consistent with clinical nephropathy. (Am. J. Kidney Disease 1995, 25:107) Hemoglobin A1c Reviewed date:09/14/2024 03:05:47 PM Interpretation: Performing Lab: Notes/Report: Hemoglobin A1c10.9%5 - 7.9 %Hemoglobin A1c Reviewed date:06/06/2024 01:27:16 PM Interpretation: Performing Lab: Notes/Report: Hemoglobin A1c9.6%5 - 7.9 % Reason For Referral Reason PT N/S APPT T2DM u ncontrolled - [facility] Diagnosis 1 Type 2 diabetes emily itus with unspecified complications (E11.8) Referral Organization [facility] Referring Provider First Name Denita Referring Provider Last Name Juana Referring Provider Speciality Family [facility] Referred Provider [facility], . Referred Provider Specialty Diabetes Man agement Referral Priority Routine Reason *FAXED 12/27 uncontr olled T2DM, missed last apt was in hospital, side effects to many meds and diet uncontrolled Diagnosis 1 Type 2 diabetes emily itus with unspecified complications (E11.8) Referral Organization [facility] Referring Provider First Name Denita Referring Provider Last Name Juana Referring Provider Speciality Family Pra ctice Referred Provider [facility] Diabetic cl inic, . Referred Provider Specialty Diabetes Edu cator General Notes Mary Polanco 2024 01:06:01 PM >[facility] DECLINED REFERRAL DUE TO N/S. Referral Priority Routine Reason *FAXED 01/13 - FAXED REFFERAL UPDATE 04/13 Left knee sprain x1 week, no fracture on XR Diagnosis 1 Pain, joint, knee, l eft (M25.562) Referral Organization [facility] Referring Provider First Name Gerald Referring Provider Last Name Dillon Referring Provider Speciality [facility] Referred Provider [facility] PT/OT, Jose Kelsey [facility] Referred Provider Specialty Physical The rapist Referral Priority Routine Reason SCHEDULED 08/01/25 A taxia, essential tremors, micrographia x3 months; Father with Parkinson's Diagnosis 1 Ataxia (R27.0) Referral Organization [facility] Referring Provider First Name Gerald Referring Provider Last Name Dillon Referring Provider Speciality [facility] Referred Provider [facility], . Referred Provider Specialty Neurology Referral Priority Routine Medications Medication SIG (Take, [...] MOUTH DAILY FOR 7 DAYS; Duration: 7Not-Taking/PRN Insulin Glargine Solostar 100 UNIT/ML Solution Pen-ecmgvvuz63 units Subcutaneous dailyActiveFreeStyle Nan 2 Sensor - Miscellaneousup to 3 times a day; Duration: 28 daysActivePen [place] 5/16 31G X 8 MM MiscellaneousUSE ONE NEEDLE TO INJECT INSULIN ONCE DAILY; Duration: 30 daysActiveNitroglycerin 0.4 MG Tablet Sublingualas directed SublingualNot-Taking/PRNIsosorbide Mononitrate ER 120 MG Tablet Extended Release 24 HourOral; Duration: 30 DaysActiveOlopatadine HCl 0.2 % Solution1 drop into each eye Ophthalmic Once a day; Duration: 30 days 11/03/2024Not-Taking/PRNLantus SoloStar 100 UNIT/ML Solution Pen-vlavavnt11 units Subcutaneous dailyActiveNystatin 670822 UNIT/ML Suspension4 mL Mouth/Throat Four times a [...] 90 daysRequesting refill for OneTouch Ultra Test Bemyzz045Active Immunizations Vaccine Route Administration Date Status Comme nts Influenza 3+ PRIVATE IM Intramuscular 06/25/2022 Administe red Influenza-AdultIM Cwaozcpilutge47/12/2018AdministeredMODERNAIM Intramuscular 1AdministeredMODERNAIM Zeruzkzslvhxu87/24/2021AdministeredMODERNAIM Iflydifslefmb68/15/2021AdministeredBOOSTERMODERNA BIVALENTIM Intramuscular 2AdministeredPNEUMOVAX 26Fmdtfjj64/01/2019Administeredzzz do not use FLUARIX 3 YRS AND OLDER AdultIM Fgvylrbknbbhn98/13/2016Administered Social History Tobacco Use: Social History Observation [...] 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 Stress is when someone feels tense, nervous, anxious, or cant sleep at night because their mind is troubledA little bitIn the past year have you spent more than 2 nights in a row in a halfway, half-way, nursing home center, orjuvenile correctional facility?NoAre you a refugee?NoWhat [...] InterpretationNegativeTobacco Use:Social InfoQuestionAnswerNotesTobacco Control (Standard)Tobacco use:NonsmokerSection Notes: 11/13/15: Denies tobacco use, Very little etoh, [...] - approx 15 years of heavy drinking STARTED SMOKING A COUPLE WEEKS AGO, 2 [...] Disorder due to type 2 diabetes mellitus (404292614) Type 2 diabetes mellitus with unspecified complications (E11.8) ActiveconfirmedProblemMixed hyperlipidemia (059977106)Mixed hyperlipidemia (E78.2)ActiveconfirmedProblemInsomnia (373973377)Other insomnia (G47.09)Active confirmedProblemEssential hypertension (77601003)Essential (primary) hypertension (I10)ActiveconfirmedProblemTypical atrial flutter (998865243) Typical atrial flutter (I48.3)ActiveconfirmedProblemGastroparesis (159530170) Gastroparesis (K31.84)ActiveconfirmedProblemAbnormal gait (97648914)Unsteadiness on feet (R26.81)ActiveconfirmedProblemLong-term current use of insulin (502707405)terminal supervisor (current) use of insulin (Z79.4)ActiveconfirmedProblem Atrial fibrillation (81929428)Atrial fibrillation with RVR (I48.91)Active confirmedProblemDiabetic nephropathy (935438123)Diabetic nephropathy (E11.21) ActiveconfirmedProblemInsomnia (666930659)Insomnia, unspecified type (G47.00) ActiveconfirmedProblemDysphagia (80585873)Dysphagia, unspecified type (R13.10) ActiveconfirmedProblemCoronary artery disease (95000176)Coronary artery disease (I25.10)ActiveconfirmedProblemPeripheral neuropathy (296864058)Peripheral neuropathy (G62.9)ActiveconfirmedProblemHyperglycemia (37425499)Hyperglycemia (R73.9)ActiveconfirmedProblemSevere recurrent major depression without psychotic features (50747910)Severe episode of recurrent major depressive disorder, without psychotic features (F33.2)ActiveconfirmedProblemChronic pancreatitis (031648775)Chronic pancreatitis, unspecified pancreatitis type (K86.1)Active confirmedProblemMemory impairment (095636683)Memory impairment (R41.3)Active confirmedProblemAtaxia (26250718)Ataxia (R27.0)ActiveconfirmedProblemStented coronary artery (859014405)Stented coronary artery (Z95.5)ActiveconfirmedProblem Generalized anxiety disorder (98965493)NARAYAN (generalized anxiety disorder) (F41.1)ActiveconfirmedProblemBlind left eye (disorder) (056059816)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)ActiveconfirmedProblemBarrett's esophagus (281679134)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)ActiveconfirmedProblemModerate recurrent major depression (33745328)MDD (major depressive disorder), recurrent episode, moderate (F33.1)ActiveconfirmedProblemGastroesophageal reflux disease (623918144)Gastroesophageal reflux disease, unspecified whether esophagitis present (K21.9)Activeconfirmed Vital Signs Heart Rate 89 /min 05/08/2025 Rclsjgbzsav28.8 degrees Ectewvewpe66/10/2025Respiratory Rate18 /min05/08/2025 Fgsrzumg92 %05/08/2025lood pressure hliifcocn67 mm Hg05/08/20257779Qhkhkq63.5 in 05/08/2025lood pressure mytrdhqq726 mm Hg05/08/20251552Popzto525 lbs107/08/2024MI 26.87 kg/m205/08/2025 Encounters Encounter Location Date Provider Diagnosis [facility] [address] [place] [address] 04/20/2025 Gerald Carranza [facility] [place] [address]/09/20[facility] [place] [address]/09/2024[facility] [place] [address]/09/2024[facility] [place] [address]/10/2024[facility]aitlyn [facility] [address] [place] [address]/03/2024[facility] [address] [place] [address]/04/2024 [facility] [address] [place] [address]/[facility] [address] [place] [address]/[facility] [address] [place] [address]/[facility] [address] [place] [address]/12/2024[facility] [address] [place] [address]/ [facility] [address] [place] [address]/04/2025[place] [id number] [facility] [address]/[facility]Family [facility] [address] [place] [address]/[facility] HealthRiAaron Ville [id number] [place] [address]/[facility] HealthR[facility]zoFamily [facility] [address] [place] [address]/[facility] [address] [place] [address]/[facility] [address] [place] [address]/ [facility] zRizzoFamily Health [address] [place] [address]/Kaitlyn zzzRizzoFmercyone [facility] Health [address] [place] [address]/Kaitlyn zzzRizzoType 2 diabetes mellitus with unspecified complications E11.8[facility] [address] [place] [address]/[facility] [address] [place] [address]/[facility] [address] [place] [address]/[facility] [address] [place] [address]/Kaitlyn zzzRizzo Type 2 diabetes mellitus with unspecified complications E11.8 ; Seborrheic dermatitis L21.9 ; Acutenon-recurrent sinusitis, unspecified location J01.90 and Stented coronary artery Z95.5[facility] [address] [place] [address]/04/2025Kaitlyn zzzRizzoType 2 diabetes mellitus with unspecified complications E11.8[facility] [place] [address]/01/2025Kaitlyn zzzRizzoAllergic conjunctivitis of both eyes H10.13 and Type 2 diabetes mellitus with unspecified complications E11.8 [facility] [address] [place] [address]/ Denita zzzRizzoType 2 diabetes mellitus with unspecified complications E11.8 ; Other insomnia G47.09 ; History of atrial fibrillation Z86.79 ; Prostate cancer screening Z12.5 and Mixed hyperlipidemia E78.2[facility] [address] [place] [address]/02/2024Kaitlyn zzzRizzoType 2 diabetes mellitus with unspecified complications E11.8 ; Atrial fibrillation with RVR I48.91and Dysphagia, unspecified type R13.10[facility] [place] [address]/arry MasinAbscess of finger of right hand L02.511 ; Ataxia R27.0 and Type 2 diabetes mellitus with unspecified complications E11.8[facility] [place] [address]/arry MasinPain, joint, knee, left M25.562 ; Skin rash R21 and Medication refill Z76.0[facility] [place] [address]/Kaitlyn zzzRizzoTypical atrial flutter I48.3 ; Coronary artery disease I25.10 and Type 2 diabetes mellitus with unspecified complications E11.8[facility] [place] [address]/Kaitlyn zzzRizzoType 2 diabetes mellitus with unspecified complications E11.8 ; Other insomnia G47.09 ; History of atrial fibrillation Z86.79 and Mixed hyperlipidemia E78.2[facility] [place] [address]/09/2023Stanton VincentType 2 diabetes mellitus with unspecified complications E11.8 and Hyperglycemia R73.9[facility] [address], [place] [id number]/arry MasinEssential (primary) hypertension I10 and Type 2 diabetes mellitus with unspecified complications E11.8 Assessments Encounter Date Diagnosis (ICD Code) Assessment Notes Treatment Notes Treatment Clinical Notes Section Notes 06/01/2024 Type 2 diabetes emily itus with unspecified complications (ICD-10 - E11.8) Due to patient still having elevated glucose levels, [...] Stern in June and will be seeingUH extraction operator in July for consideration of ablation. He [...] for backup when he is out of [employer]style Nan sensors. He is aware of the [...] in insulin regimen. Also placed referral to electronic health records specialist since we are running out of [...] 200s to 300s. Also placed referral to electronic health records specialist since we are running out of [...] of finger of right hand (ICD-10 - L02.511)Open wound with purulent discharge and minimal bleeding to right index finger dorsal PIP joint with surrounding erythema and possible mild surrounding warmth. Expressed to Mr Zeng the concern for possible septic arthritis and urged him to proceed to ED today for futher evaluation and treatment. He stated that he does not have a ride to go today but will try to go tomorrow (05/09). Given this constraint, in the mean time, will plan to place XR orders and oral antibiotics as well as providing topical bacitracin and bandaids in office today. Expressed multiple times this concern and importanceof seeking immediate care for wound. Pt expressed understanding.05/08/2025taxia (ICD-10 - R27.0)Pt with multiple neurological symptoms as noted above in setting of family history of Parkinsons (father) as well as chronic diabetic neuropathy. Will place referral to neurology for further evaluation and treatment as well as consider physical therapy at next followup appointment. Pt understands and agrees with plan. 05/08/2025Type 2 diabetes mellitus with unspecified complications (ICD-10 - E11.8)A1c in office today 10.7, unchanged from October 2024. Pt states his glucose readings have been as low as 102 and as high as 320s; averaging in 250s. We discussed starting to take short acting insulin after every meal instead of once daily. Also discussed dietary considerations including eating meals high in protein and less carbohydrates. Recommended followup with scheduled podiatry appointment as well as optometry for annual retinal exam. Pending glucometer readings, will plan to increase Lantus to 45 units if fasting blood sugars remain consistently above >130s. Consider increasing short acting insulin pending TID use and post-prandial sugar levels.01/12/2025Medication refill (ICD- 10 - Z76.0)Pt requesting refill for his OneSupernovauch Ultra 2 glucometer strips - Rx placed to [facility] pharmacy.12/16/2024Other insomnia (ICD-10 - G47.09)Patient with insomnia [...] sees me next. Also discussed referral to electronic health records specialist since we are running out of options for him. Discussed red flag symptoms that would warrant urgent evaluation. Patient voiced understanding and was in agreement with the plan.06/11/2024oronary artery disease (ICD-10 - I25.10)Patient has bottle [...] the plan. 4Dysphagia, unspecified type (ICD-10 - R13.10)06/11/2024Type 2 diabetes mellitus with unspecified complications (ICD-10 [...] with the plan.09/14/2024Stented coronary artery (ICD-10 - Z95.5) Patient is on Xarelto prescribed by delphi developer for stented coronary ateries. He stopped taking itdue to superficial skin bleeding the last few days. Highly recommended he restart taking this and let his delphi developer know GI that he has been off of it the last few days in addition to his skin bleeding. Discussed that if he is not having significant bleeding in his stools, urine, vomit, etc, he needs this medication to protect him from having issues with his heart. Patient voiced understanding and was in agreement with the plan.11/15/2024 Prostate cancer screening (ICD-10 - Z12.5)Discussed PSA test with patient. Informed patient that current USPSTF guidelines do not have strongrecommendation for routine PSA screenings. However, discussed that [...] plan.11/15/2024Mixed hyperlipidemia (ICD-10 - E78.2)Will check annual labs 12/16/2024Mixed hyperlipidemia (ICD-10 - E78.2)Well controlled on current regimen. Continue at this time.12/16/2024OtherBody Mass Index: Care Instructions material was printed Plan Of Treatment Pending Test Test Name Order Date XR finger RT 2nd digit 05/08/2025 XR hand RT min 3V* 05/08/2025 Next Appt Details Provider Name:Gerald Carranza, 06/08/2025 09:30:00 AM, [address], [place], [address], Insurance Providers Payer Name Payer Address Payer Phone Subscriber Number Group Number Insured Name Patient Relationship to Insured Coverage Start Date Coverage End Date [facility] [place]NP [place] [address] [place] [address] [phone] [id number] BRITT ZENG Self - patient is the insured 3 [employer] MEDICAID SEC TO [employer] [address] [place] [phone] [id number], TERRYSelf - patient is the [id number] [address] [address] [place] [id number] SANJIV ZENGelf - patient is the [id number] 2018[employer] [address] [place] [id number], TERRYSelf - patient is the [id number] Medical (General) History Medical History History ICD Code GERD 1970's HTN 1990sSleep Apnea - doesn''''t wear mask, claustophobicNeuropathy - bilateral legs 2000sosteopeniadepression 1980''''sRotator cuff tearHyperlipidemia ArthritisCoronary artery disease w stents- LysterA-fibCoronary artery disease involving [place] coronary artery of [place] heart without angina kwebtutzB48.10 Type 2 diabetes mellitus with unspecified zvnpsdddejttmY99.8Barrett's Esophagus IyimeegbbT66.10Unspecified fracture of lower end of left tibia, initial encounter for closed shvqvowrK39.302AGarbled dpnfhlV95.89Dysphagia, unspecified typeR13.10Diabetes fkwyvidxE64.9Type 2 diabetes mellitus with diabetic autonomic (poly)kmfnwikjncE73.99NpjcfbzlescfM37.5Major depressive disorder, single episode, hhvpdcartqsE49.9High qucdzxatjmzqwD55.1Internal derangement of right kneeM23.51VlfvrykirV70.10Osteoarthritis of right sternoclavicular xfjhmG38.011 Primary osteoarthritis of right kneeM17.11Surgical History Surgery Date(Month/Year) hernia exploratory lap - no findings EGD 1989 tonsillectomy Heart cath w 2 stentsfeb 2012Heart Cath with placement of 2 more stents.2013Heart Cath with stent oxlisrcsk58/2018BIOPSY OF THE ZYDLMX37/2020Cataract extraction-OD08/2020Heart stent qhonyh46/2024Heart cath12/07/24Hospitalization History Reason Date(Month/Year) took wrong DM medication 2009 A-FIB 05/2024 A FIB 05/22 a fib 04/21 CAD, Angina 03/2018 Atrial Fib. 09/24/2016
--- OUTSIDE RECORDS SUMMARY | 2025-05-26 17:55 | XMS_ITS | Clinical Summary ---
Author Organization [facility] Address [address] [place] [address] Care Team Providers Care Health Education Specialist Name Role Phone Orville Friedman DO Primary Care Provider [phone] Allergies Active AllergyReactionsCriticalityNoted CeuqWgjeswynBwwvgmnptuKfsgxeu23/13/2023 DrjgshajtHmlgoag65/13/2023Sulfa MzlsgowfhosUhtmPyi78/18/2023 Medications MedicationSigDispense QuantityRefillsLast FilledStart DateEnd DateStatus atorvastatin [...] Blood Gluc Sensor (FreeStyle Nan 2 Sensor) [facility] [place] 08/10/2023ctive hydrOXYzine HCl (Atarax) 25 MG tablet 1 tablet as needed at bedtime Orally for 30 days08/10/2023ctive tacrolimus (Protopic) 0.03 % ointment Indications:Flexural atopic dermatitisApply topically in the morning and before bedtime. Apply to the face. 60 g ctive Active Problems No known active problems Resolved Problems ProblemNoted DateDiagnosed DateResolved DateAcquired hallux mycikc6403/25/2023 03/25/2023trial wdqgqonsvuma17arrett's /27/2023 03/25/2023lindness of left eyehange in bowel habits hanges in skin kjlxodm33hronic fwdwtabyntqa80hronic slacuaiq62iabetes aihjurou86iabetic bsvqpvbkzk87iabetic peripheral neuropathy associated with type 2 diabetes ofatfzpk48/27/2023 03/25/20236698Izwvcvijp64Former Overview (03/25/2023): smoked cigars rarely Gastroesophageal reflux eozqiqy26astroparesis03/25/2023 03/25/2023eneralized anxiety lkoervjg21Insomnia03/25/2023 03/25/2023Long term current use of uxttmdq77Memory impairment 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 bimalleolar fracture of right lower leg with routine agurkkl49 Intradural massrteriosclerosis of coronary ybxsrb6609/27/2014 03/25/20232619Meqphggfckiq73Essential xtcydxfccfdq26/01/2015 03/25/20239004Blukofh71 Encounters DateTypeDepartmentCare QlnbKfoumkrnnff73/30/2025 9:20 AM EDTOffice Visit [facility] [address] [place] [address] Ifeanyi Norris DPM Capsulitis of metatarsophalangeal (MTP) joint of right foot (Primary Dx); Metatarsal deformity, right; Acquired deformity of right toe; Plantar plate injury, right, initial encounter; Diabetes mellitus due to underlying condition with diabetic polyneuropathy, unspecified whether chcf insulin use (HCC); Pain due to onychomycosis of toenails of both feet03/28/2025amboo flowsheet [facility] [address] [place] [address] Ifeanyi Norris DPM 03/23/2025 9:20 AM EDTOffice Visit [facility] [address] [place] [address] Simon Butler MD Xerosis cutis (Primary Dx); Flexural atopic dermatitis; Chronic yboenoxy83/25/2025amboo flowsheet [facility] [address] [place] [address] Simon Butler MD 03/23/20250814Mwiivs36/28/2025 9:00 AM EDTOffice Visit [facility] [address] [place] [address] Simon Butler MD Flexural atopic dermatitis (Primary Dx); Chronic tfzvsgov62/28/2025amboo flowsheet [facility] [address] [place] [address] Simon Butler MD 02/23/2025Travelfrom Last 3 Months Family History Medical HistoryRelationNameCommentsHeart diseaseFatherHypertensionMotherRelation NameStatusCommentsFatherDeceasedMotherDeceased Social History Tobacco UseTypesPacks/DayYears UsedDateSmoking Tobacco: NeverSmokeless Tobacco: Never Tobacco Cessation:Counseling Given: Yes Alcohol UseStandard Drinks/WeekCommentsYes0 (1 standard drink = 0.6 oz pure alcohol)caffeine intake:soda popSex and Gender InformationValueDate RecordedSex Assigned at BirthNot on fileLegal AqlApon5509/10/2022 6:48 PM EDTGender Identity Not on fileSexual OrientationNot on file Last Filed Vital Signs Vital SignReadingTime TakenCommentsBlood Bwpjadpu733/8009 3:23 PM EDT Nwlhg8614 3:23 PM SVZXvyrazfzsyw60.2 ??C (97.1 ??F)08/06/2023 10:42 AM ESTRespiratory Azhe702503/28/2025 9:14 AM EDTOxygen Saturation--Inhaled Oxygen Concentration--Rsflaw20.5 kg (173 lb)03/28/2025 9:14 AM DELYabwdn094.1 cm (5' 5 )03/28/2025 9:14 AM EDTBody Mass Index28.7903/28/2025 9:14 AM EDT Plan of Treatment DateTypeDepartmentCare Team (Latest Contact Info)Ostwiaznlra52/17/2025 9:40 AM ESTOffice Visit [facility] [address] [place] [address] Simon Butler MD [address] [place] [address] 06/20/2025 9:00 AM ESTOffice Visit [facility] [address] [place] [address] Ifeanyi Norris DPM [address] [facility] [address] [place] [address] Health MaintenanceDue DateLast DoneCommentsCT Bkmkhxqmvaxv42/29/1956FIT-DNA 1955FIT1955FOBT1955 1684Qkibqmvdimqux01/29/1954neumococcal Vaccine: 65+ Years (2 of 2 - PCV)/06/2018COVID-19 Vaccine ( season)/, 06/12/2021, 10/20/2020, Additional history existsInfluenza Vaccine (#1)/, 06/25/2022, 05/10/2018, Additional history ksrtxjNaerjdwsjsh29/06/203212/2Colorectal Cancer Vqwsrmwcl01/06/2032 Procedures Procedure NamePriorityDate/TimeAssociated DiagnosisCommentsCOLONOSCOPYRoutine 06/03/2022 12:00 PM EST Other constipation Personal history of colonic polyps Change in bowel habit from Last 3 Months or Most Recently Relevant to Health Maintenance Results * Colonoscopy (06/03/2022 12:00 PM EST)Anatomical RegionLateralityModality EndoscopySpecimen (Source)Anatomical Location / LateralityCollection Method / VolumeCollection TimeReceived Time12/11/2021 12:00 PM EST Narrative 06/03/2022 12:00 PM EST PERFORMED AT [facility] LOCATION:[id number] Procedure Note CONVERSION, GENERIC - 11/12/2022 PERFORMED AT [facility] LOCATION:[id number] Authorizing ProviderResult TypeResult StatusPaul Leandro Wilkins DOENDOSCOPY PROCEDURE ORDERABLESFinal Result from Last 3 Months or Most Recently Relevant to Health Maintenance Insurance Care Teams Team MemberRelationshipSpecialtyStart DateEnd Date Orville Friedman DO [address] [facility] [facility] [place] [address] [facility]01/13/23
--- OUTSIDE RECORDS SUMMARY | 2025-05-26 17:55 | XMS_ITS | Clinical Summary ---
Author Organization [facility] Address [address] [place] [address], [address] [place] [address] Care Team Providers Care Relationship Specialist Name Role Phone Unavailable Primary Care Provider Unavailabl e Social History Tobacco UseTypesPacks/DayYears UsedDateSmoking Tobacco: Never AssessedSex and Gender InformationValueDate RecordedSex Assigned at BirthNot on fileLegal Sex Male08/08/2012 8:51 PM ESTGender IdentityNot on fileSexual OrientationNot on file Plan of Treatment Not on file
--- OUTSIDE RECORDS SUMMARY | 2025-05-26 17:55 | XMS_ITS | Clinical Summary ---
Author Organization [facility] Address [address] [place] [address] Phone Care Team Providers Care Renovator Machine Operator Name Role Phone Bethanie Meza MD Unavailable Denita Escamilla Unavailable Generic Provider, No Assigned Pcp Primary Car e Provider Unavailable Allergies Active AllergyReactionsCriticalityNoted OsbfZgoneaqmSzyczalbuVrlqb01/18/2024 nightmares QzsuzlqfyeOgpayhx60/14/1180PmnncfsajegHnxre92/18/2024 nightmares MetforminDiarrhea,Gvzramg9109/09/2022Sulfa (Sulfonamide Antibiotics)Swelling, Alewtuo7910/12/2023 Medications MedicationSigDispense QuantityRefillsLast FilledStart DateEnd DateStatus empagliflozin [...] 24 hr capsule Indications:Coronary artery disease of [place] artery of [place] heart with stable angina pectorisTake 1 capsule [...] artery disease involving coronary bypass graft of [place] heart with unstable angina pectoris (Multi)5Active isosorbide mononitrate ER (Imdur) 60 mg 24 hr tablet Indications:Unstable angina (Multi)Take 1 tablet (60 mg) by mouth once daily. Do not crush or chew. 90 tablet ctive aspirin 81 mg chewable tablet Indications:Coronary artery disease involving coronary bypass graft of [place] heart with unstable angina pectoris (Multi)Chew and [...] Problems ProblemNoted DateDiagnosed DateAtherosclerotic heart disease of [place] coronary artery without angina /18/2025Rash due to ahvszzy9402/13/2025Encounter to discuss test bbiqhhs2901/30/2025MI 28.0-28.9,adult01/30/2025Maculopapular rash 01/30/2025Hospital discharge follow-up01/30/20250986Bucmbcqqjufgif67/23/2025bnormal electrocardiogram (ECG) (EKG)11/18/2024trial fibrillation, currently in sinus xyxfdr9607/29/2024MI 29.0-29.9,adult05/20/2024High risk medication use05/20/2024 Family history of atrial ymokfdb9605/20/2024Medication course pwraglp6805/20/2024 Atrial odjckxu0105/20/2024oronary artery disease of [place] artery of [place] heart with stable angina fdtopihl66/18/2024 Assessment & Plan (01/29/2024 2:29 PM EDT): October 23, 2023 elective cardiac cath and subsequent coronary intervention PLB PCI/Granite Canon 3.0 x 18 mm Mid RCA 50% [...] cardiac cath and subsequent coronary intervention PLB PCI/Granite Canon 3.0 x 18 mm Mid RCA 50% [...] without any type of problem. Leg weakness, /18/2024 Assessment & Plan (12/16/2023 1:42 PM EDT): Reports progressive worsening leg weakness, no real true claudication symptoms. No open wounds Figueroa's esophagus without /27/2024resence of stent in coronary ekfmta4110/24/2023Shortness of fpzuhu5410/24/2023Never smoked kirhegs3510/15/2023 Fsiteepkiyvuwu02/15/2024 Assessment & Plan (01/29/2024 2:28 PM EDT): Tolerating high intensity statin Assessment & Plan (12/16/2023 1:38 PM EDT): Tolerating high intensity statin Angina, class III10/12/2023 Assessment & Plan (12/16/2023 1:39 PM EDT): Continues with exertional chest pain symptoms after walking one quarter of a mile, is not utilizingnitroglycerin. Essential vcdkbicfemqa53/15/2024 Assessment & Plan (01/29/2024 2:28 PM EDT): Optimal in office Assessment & Plan (12/16/2023 1:39 PM EDT): Optimal in office Type 2 diabetes mellitus, without long-term current use of ndqjbhk8010/12/2023 Assessment & Plan (12/16/2023 1:41 PM EDT): On statin/ARB Reports most recent hemoglobin A1c 8 something Aortic valve vsvlfxsa14/15/2024Unstable uzmgfn2310/12/2023 Resolved Problems ProblemNoted DateDiagnosed DateResolved DateBMI 31.0-31.9,adult10/15/2023 05/20/2024 Assessment & Plan (01/29/2024 2:29 PM EDT): Reviewed the merits of healthy lifestyle choices on overall cardiovascular health. Assessment & Plan (12/16/2023 1:41 PM EDT): Reviewed the merits of healthy lifestyle choices on overall cardiovascular health. Angina pectoris, cehosveq78 Encounters DateTypeDepartmentCare FidyZltenxvxxbo87/28/2025[address] [place] [address] Yvrose Hogue, PEDRO cardiac rehabfrom Last 3 Months Immunizations ImmunizationAdministration DatesNext DueFlu vaccine, trivalent, preservative free, HIGH-DOSE, age 65y+ (Fluzone)04/18/2024Influenza, injectable, quadrivalent 06/25/2022neumococcal polysaccharide vaccine, 23-valent, age 2 years and older (PNEUMOVAX 23)06/29/2018 Family History Medical HistoryRelationNameCommentsNo Known ProblemsBrotherHeart attackFatherNo Known ProblemsMotherNo Known ProblemsSisterRelationNameStatusCommentsBrother FatherMotherSister Social History Tobacco UseTypesPacks/DayYears UsedDateSmoking Tobacco: NeverSmokeless Tobacco: Never Tobacco Cessation:Counseling Given: Yes Alcohol UseStandard Drinks/WeekCommentsYes0 (1 standard drink = 0.6 oz pure alcohol)occasionallySex and Gender InformationValueDate RecordedSex Assigned at BirthNot on fileLegal BvsTyeb11/26/2022 6:36 PM ESTGender IdentityNot on file Sexual OrientationNot on file Last Filed Vital Signs Vital SignReadingTime TakenCommentsBlood Zlnzijzw932/6808 9:53 AM EDT Dvphd431202/13/2025 9:53 AM NXAXtbkahssnwa62.9 ??C (96.6 ??F)10/23/2023 9:09 AM EDTRespiratory Mpjc349110/23/2023 12:50 PM EDTOxygen Tsfyzjspbh24%10/23/2023 12:50 PM EDTInhaled Oxygen Concentration--Trbypw10.6 kg (171 lb)02/13/2025 9:53 AM EDT Onjfvw465.1 cm (5' 5 )02/13/2025 9:53 AM EDTBody Mass Index28.46002/13/2025 9:53 AM EDT Plan of Treatment DateTypeDepartmentCare Team (Latest Contact Info)Yieiuqdkroy71/19/2026 9:45 AM ESTOffice Visit [facility] [address] [facility] [address] [place] [address] Zahida Stern MD [address] [address] Health MaintenanceDue DateLast DoneCommentsCT Nqkbnngvfoao80/29/1954iabetes: Hemoglobin A1C1953iabetes: Urine Protein Paolpbjic98/29/1954FIT-DNA (Cologuard)1953FIT1953Lipid Panel1953Medicare Annual Wellness Visit (AWV)1955 6354Capotprdozeqc76/29/1954TSH Level1953MMR Vaccines (1 of 1 - Standard series)1954Diabetes: Retinopathy Koytamjmp90/29/1964 Hepatitis C Xxbvbhljb67/29/1972DTaP/Tdap/Td Vaccines (1 - Tdap)1975RSV High Risk: (Elderly (60+) or Population) (1 - Risk 50-74 years 1-dose series)2003Zoster Vaccines (1 of 2)2003Pneumococcal Vaccine (2 of 2 - PCV)/06/2018Influenza Vaccine (#1)/, 06/25/2022, 05/10/2018, Additional history existsCOVID-19 Vaccine ( season)/, 06/12/2021, 10/20/2020, Additional history exists EGD/10/2024, 8930Muruumttybg59/06/203212/11/2021, 06/03/2022 Colorectal Cancer Vdnxkptlv59/06/2032Irritable Bowel SyndromeDiscontinued 06/03/2022HIB VaccinesAged OutNo longer eligible [...] ImplantedTypeAreaManufacturerDevice IdentifierShelf Expiration DateModel / Serial / Felicianot, Granite Canonkwadwo Allen Herve, 3.00 X 18rx - [id number] Implanted:Qty: 1 on 10/23/2023 by Zahida Stern [facility] StentN/A: CoronaryMEDTRONIC [id number] / / [id number] [place] [address] * Guarantor: Valerio Dumont TypeRelation to PatientDate of BirthPhone Billing AddressPersonal/QmrjukDzkw74/29/1956 [facility] [place] [address] Advance Directives For more information, please contact: [phone] (Available ) * Full Code (Latest Code Status on File) Date ActivatedDate InactivatedComments10/23/2023 8:54 AMQuestionAnswerComments Plan of Care:* Code Status Discussion Not Completed Decision Maker:* Provider Rationale:* Patient condition does not warrant discussion Care Teams Team MemberRelationshipSpecialtyStart DateEnd Date Generic Provider, No Assigned MD [facility]ep [facility] [place] [address] PCP - GeneralGeneral Practice11/18/24 Bethanie Meza MD [address] [facility] Medical Office [address], [address] [place] [address] CardiologistElectrophysiology07/22/24 Denita Escamilla [address] [place] [address] Referring PhysicianFamily Medicine07/25/24
[2025-05-26 19:38] VITALS: BP 163/77; PULSE 62; TEMP 36.8; O2SAT 93
--- NOTE | 2025-05-26 19:51 | CT_ITS ---
[facility] [place] [id number] Patient Name: BRITT ZENG MRN: [id number] date: 1955 Sex: M Assigned Patient Location: ER Current Patient Location: ER Accession/Order Number: [id number] Exam Date: 05/26/2025 20:07 Report Date: 05/26/2025 20:51 At the request of: HAYDEE ROSALES DO Procedure: CT abdomen pelvis wo con CT ABDOMEN AND PELVIS WITHOUT INTRAVENOUS CONTRAST: CLINICAL HISTORY: severe constipation, abdominal distention COMPARISON: Abdominal x-ray 05/18/2025 TECHNIQUE: Spiral images were obtained through the abdomen and pelvis without intravenous contrast. This CT exam was performed using one or more following dose reduction techniques: Automated exposure control, adjustment of the mA and/or kV according to patient size, or use of iterative reconstruction technique. FINDINGS: Lung Bases: Coronary artery disease versus coronary stents. Lung bases are clear. Organs:Gallbladder is nondistended 4 cm in transverse dimension. At the reported symptoms, consider ultrasound. Otherwise the liver, gallbladder, spleen, adrenals and pancreas unremarkable. Kidneys symmetric size without hydronephrosis.[ GI: Moderate colonic stool burden. Moderate to large stool burden stool rectosigmoid junction noted question fecal impaction and/or constipation. No findings of small bowel obstruction.[No definite bowel wall thickening or surrounding inflammatory changes. Pelvis:[Mild bladder distention. Prostate unremarkable. Tiny fat-containing left inguinal hernia.] Peritoneum/Retroperitoneum:No free air or free fluid. Ljma-fv-mkavbvkt plaque involving the nonaneurysmal aorta.[ Abd wall/Bones:Facet arthropathy lumbosacral junction.[ CT/CT abdomen pelvis wo con IMPRESSION: Moderate to large stool burden notably rectosigmoid junction may represent fecal impaction and/or constipation. Moderate colonic stool burden elsewhere. Impression dictated by: Sudarshan Redd M.D. 05/26/2025 8:51 PM Dictation Location: [place] [address] Electronically authenticated by: [id number] Date: 05/26/2025 20:51
[2025-05-26 20:07] LABS: Hematocrit 49.3 % (42.0-54.0); Hemoglobin 16.4 g/dL (14.0-18.0); Mean Corpuscular HGB Conc 33.3 g/dL (29.9-35.2); Mean Corpuscular Hemoglobin 31.4 pg (25.9-34.0); Mean Corpuscular Volume 94.4 fL (80.0-94.0); Platelet Count 178 10^3/uL (150-450); Red Blood Count 5.22 10^6/uL (4.70-6.10); White Blood Count 8.1 10^3/uL (4.0-11.0)
[2025-05-26] MEDS: MAGNESIUM CITRATE 296 ML SOLUTION PO (20:11)
[2025-05-26 20:22] LABS: Basophils Abs Manual 0.00 10^3/uL (0.00-0.10); Basophils Percent Manual 0.0 % (0.2-2.0); Eosinophils Absolute Manual 0.00 10^3/uL (0.00-0.70); Eosinophils Percent Manual 0.0 % (0.9-7.0); Lymphocytes Absolute Manual 0.32 10^3/uL (1.20-3.80); Lymphocytes Percent Manual 4.0 % (20.5-60.0); Monocytes Absolute Manual 0.48 10^3/uL (0.30-0.80); Monocytes Percent Manual 6.0 % (1.7-12.0); Segmented Neut Absolute Manual 7.29 10^3/uL (1.4-6.5); Segmented Neutrophils % Manual 90.0 (43.0-75.0)
[2025-05-26 20:23] LABS: Alanine Aminotransferase 40 U/L (16-63); Albumin Globulin Ratio 1.0; Albumin Level 3.9 g/dL (3.4-5.0); Alkaline Phosphatase 108 U/L (46-116); Anion Gap 9.5; Aspartate Amino Transferase 23 U/L (15-37); Blood Urea Nitrogen 12.0 mg/dL (7.0-18.0); Calcium 9.5 mg/dL (8.5-10.1); Carbon Dioxide 29.6 mmol/L (21.0-32.0); Chloride 104 mmol/L (98-107); Estimated GFR (African America >60 (>=60 mL/min/1.73m^2); Estimated GFR (Non-African Ame >60 (>=60 mL/min/1.73m^2); Globulin 4.0 g/dL; Glucose 216 mg/dL (74-106); Potassium 4.1 mmol/L (3.5-5.1); Sodium 139 mmol/L (136-145); Total Protein 7.9 g/dL (6.4-8.2)
[2025-05-26 21:14] VITALS: BP 149/86; PULSE 92; O2SAT 95
== END 2025-05-26 21:21 | disposition home or self-care (01) ==
PROVIDERS: Student in an Organized Health Care Education/Training Program; Emergency Provider Emergency Medicine
DX: K59.00 Constipation, unspecified (principal)
CPT/HCPCS: 36415; 74018; 74176; 80053; 85007; 85027; 99285

== ENCOUNTER 2025-06-17 21:05 | Emergency (ER) | payer MEDICARE, MEDICAID, SELFPAY ==
--- OUTSIDE RECORDS SUMMARY | 2024-11-29 08:00 | XMS_ITS ---
Author Organization [facility] Servic es Address [address] [place] [address] Care Team Providers Care Vat House Laborer Name Role Phone Gerald Carranza Primary Care Provider [phone] Denita Arias Unavailable [phone] REASON FOR VISIT 2 week f/u,DM CHECK Encounters Encounter Location Date Provider Diagnosis [facility] Services [address] [place] [address] 11/29/2024 Denita Arias Plan Of Treatment No Information Progress Notes * PRAFUL ZENGOB:1955 (69 yo M)Acc No.[id number]:11/29/2024 Progress Notes Patient: BRITT SEGURA Provider:?JOANNE ZAVALAOB:1955???Age: 69 Y???Sex:MaleDate:11/29/2024Phone:[phone]:[address] [place], [place]-[id number]:Gerald Carranza Subjective: * Chief Complaints: * 2 week f/u,DM CHECK Billing Information: * Procedure Codes: * Electronic signature of Denita Arias DO on 06/17/2025 at 09:47 PM ESTSign off status: Pending * Appointment Provider: Carrol BLANCO DO Date: 0 11/29/2024 Generated for Printing/Faxing/eTransmitting on:?06/17/2025 09:47 PM EST
--- OUTSIDE RECORDS SUMMARY | 2024-12-14 08:30 | XMS_ITS ---
Author Organization [facility] Servic es Address [address] [place] [address] Care Team Providers Care Circular Distributor Name Role Phone Dillon Gerald Primary Care Provider [phone] Denita Arias Unavailable [phone] REASON FOR VISIT HOSP f/u Encounters Encounter Location Date Provider Diagnosis [facility] Services [address] [place] [address] 12/14/2024 Denita Arias Plan Of Treatment No Information Progress Notes * PRAFUL ZENGOB:1955 (69 yo M)Acc No.[id number]:12/14/2024 Progress Note Patient: BRITT SEGURA Provider:?JOANNE ZAVALAOB:1955???Age: 69 Y???Sex:MaleDate:12/14/2024Phone:[phone]:[address], [place]-[id number]:Gerald Carranza Subjective: * Chief Complaints: * H OSP f/u * Electronic signature of Denita Arias DO on 06/17/2025 at 09:47 PM ESTSign off status: Pending * Appointment Provider: Carrol BLANCO DO Date: 0 12/14/2024 Generated for Printing/Faxing/eTransmitting on:?06/17/2025 09:47 PM EST
--- OUTSIDE RECORDS SUMMARY | 2024-12-23 04:00 | XMS_ITS ---
Author Organization [facility] Servic es Address [address] [place] [address] Care Team Providers Care Rn Patient Services Name Role Phone Gerald Carranza Primary Care Provider Denita Arias Unavailable [phone] REASON FOR VISIT DM recheck Medications Medication SIG (Take, Route, Frequency, Duration) Notes Start Date End Date Status Ezetimibe 10 MG Tablet TAKE ONE TABLET BY MOUTH DAILY ActiveHumaLOG KwikPen 100 UNIT/ML Solution Pen-kgigreyh44 units Subcutaneous three times a day with [...] BY MOUTH DAILYActiveLantus SoloStar 100 UNIT/ML Solution Pen-kipwgywa24 units Subcutaneous dailyActiveIsosorbide Mononitrate ER 120 MG Tablet Extended Release 24 HourOral; Duration: 30 DaysActiveFreeStyle Nan 2 Sensor - Miscellaneousup to 3 times a day; Duration: 28 daysActiveInsulin Glargine Solostar 100 UNIT/ML Solution Pen-wwbppewr26 units Subcutaneous daily ActiveNystatin 790549 UNIT/ML Suspension4 mL Mouth/Throat Four times a dayActive Olopatadine HCl 0.2 % Solution1 drop into each eye Ophthalmic Once a day; Duration: 30 days5ActivePen [place] 5/16 31G X 8 MM MiscellaneousUSE ONE [...] dayActive Encounters Encounter Location Date Provider Diagnosis [facility] Services [address] [place] [address] 12/23/2024 Denita Arias Plan Of Treatment No Information Progress Notes * PRAFUL ZENGOB:1955 (69 yo M)Acc No.[id number]:12/23/2024 Progress Notes Patient: BRITT SEGURA Provider:?JOANNE ZAVALAOB:1955???Age: 69 Y???Sex:MaleDate:12/23/2024Phone:[phone]:[address] [place], [place]-[id number]:Gerald Carranza Subjective: * Chief Complaints: * D [...] Solution Pen-injector 25 units Subcutaneous daily Pen Gilmer 5/16 31G X 8 MM Miscellaneous USE ONE NEEDLE TO INJECT INSULIN ONCE DAILY Olopatadine HCl 0.2 % Solution 1 drop into each eye Ophthalmic Once a day Nystatin 358493 UNIT/ML Suspension 4 mL Mouth/Throat Four times [...] Pen-injector 25 units Subcutaneous daily Taking Pen Gilmer 5/16 31G X 8 MM Miscellaneous USE ONE NEEDLE TO INJECT INSULIN ONCE DAILY Taking Olopatadine HCl 0.2 % Solution 1 drop into each eye Ophthalmic Once a day Taking Nystatin 563639 UNIT/ML Suspension 4 mL Mouth/Throat Four times [...] DO Date: 0 12/23/2024 Generated for Printing/Faxing/eTransmitting on:?06/17/2025 09:47 PM EST
--- OUTSIDE RECORDS SUMMARY | 2025-01-05 04:00 | XMS_ITS ---
Author Organization [facility] Servic es Address [address] [place] [address] Care Team Providers Care Social Media Intern Name Role Phone Nainashantel Gerald Primary Care Provider Denita Arias Unavailable [phone] REASON FOR VISIT KANNAN MARYJANE Escamilla Encounters Encounter Location Date Provider Diagnosis [facility] Services [address] [place] [address] 01/05/2025 Gerald Carranza Plan Of Treatment No Information Progress Notes * PRAFUL ZENGOB:1955 (69 yo M)Acc No.[id number]:01/05/2025 Progress Notes Patient: BRITT SEGURA Provider:?JOANNE DowOB:1955???Age:69 Y???Sex:MaleDate:01/05/2025Phone:[phone]:[facility] [place], [place]-[address] Subjective: * Chief Complaints: * T OC MARYJANE Escamilla * Electronic signature of Gerald Carranza DO on 06/17/2025 at 09:47 PM ESTSign off status: Pending * Appointment Provider: Joceline Carranza DO Date: 0 01/05/2025 Generated for Printing/Faxing/eTransmitting on:?06/17/2025 09:47 PM EST
--- OUTSIDE RECORDS SUMMARY | 2025-06-08 04:30 | XMS_ITS ---
Author Organization [facility] Address [address] [address] Care Team Providers Care Division Order Technician Name Role Phone Nainashantel Gerald Primary Care Provider [phone] Denita Arias Unavailable [phone] REASON FOR VISIT 1m f/u Encounters Encounter Location Date Provider Diagnosis [facility] [address] [place] [address] 06/08/2025 Gerald Carranza Plan Of Treatment No Information Progress Notes * PRAFUL ZENGOB:1955 (69 yo M)Acc No.[id number]:06/08/2025 Progress Notes Patient: BRITT SEGURA Provider:?JOANNE DowOB:1955???Age:69 Y???Sex:MaleDate:06/08/2025Phone:[phone]:[facility] [place] Subjective: * Chief Complaints: * 1 m f/u * Electronic signature of Gerald Carranza DO on 06/17/2025 at 09:48 PM ESTSign off status: Pending * Appointment Provider: Joceline Carranza DO Date: 08/09/2024 Generated for Printing/Faxing/eTransmitting on:?06/17/2025 09:48 PM EST
[2025-06-17 21:31] VITALS: BP 152/87; PULSE 80; TEMP 36.9; O2SAT 95; BMI 28.3
--- NOTE | 2025-06-17 21:41 | ED.FALL1 ---
Documented by User: DAGO Parada 06/17/25 21:49 HPI HPI - Fall General Chief Complaint: Fall Stated Complaint: Fall Time Seen by Provider: 06/17/25 21:06 Mode of arrival: walk-in Limitations: no limitations History of Present Illness HPI Narrative: Patient is a 69-year-old male who presents from home by private car for evaluation of neck pain and head injury. Patient states he is on Xarelto with a history of cardiac disease, was at home when he initially reported tripping but later stated he was bending over and lost his balance falling forward striking his forehead on the ground. He has an abrasion to the his left middle MCP joint of his hand with dried blood noted. He notes initially he did not feel any pain or discomfort but as the evening has gone he has had more neck pain. He denies headache. When asked about loss of consciousness he reported this to the triage nurse but clarified that it was maybe brief like a second and that he feels the fall more dazed him. Then being unconscious on the ground. He reports his tetanus being up-to-date and he has no other complaints of nausea vomiting or headache. He denies any acute visual disturbance or loss of vision. He denies any chest pain or shortness of breath. He denies any abdominal pain and has had prior abdominal surgeries with scars noted. Patient was placed in a c-collar upon arrival. Patient notes pain is moderate paravertebral cervical and nonradiating. MD complaint: Reports fall Onset (ago): hour(s) (4.5) Fall from: Reports standing Fall witnessed: Reports no Place fall occurred: Reports home Loss of consciousness: seconds Length of LOC: Reports second(s) Prolonged down time: Reports no Symptoms prior to fall: Reports none (states he has base line trouble with equilibrium. ) Context: Reports tripped/slipped Location of injury: Reports head and neck Location of injury - extremities: Left: hand Severity: moderate Quality: Reports aching Associated symptoms (after fall): Reports neck pain; Denies numbness, weakness, chest pain, shortness of breath, abdominal pain, lightheaded, vertigo or confusion Related Data Home Medications ?Medication ?Instructions ?Recorded ?Confirmed atorvastatin 80 mg tablet 80 mg PO DAILY 05/26/25 06/17/25 empagliflozin 25 mg tablet 25 mg PO DAILY 05/26/25 06/17/25 (Jardiance) insulin glargine 100 unit/mL (3 35 unit subcut DAILY 05/26/25 06/17/25 mL) subcutaneous pen (Lantus Solostar U-100 Insulin) insulin lispro 100 unit/mL 1 sliding scale dose subcut TIDWM 05/26/25 06/17/25 subcutaneous pen (Humalog KwikPen (U-100) Insulin) metoprolol succinate 25 mg 25 mg PO DAILY 05/26/25 06/17/25 tablet,extended release 24 hr isosorbide mononitrate 60 mg 60 mg PO DAILY 06/17/25 06/17/25 tablet,extended release 24 hr rivaroxaban 20 mg tablet (Xarelto) 20 mg PO Q24H 06/17/25 06/17/25 Allergies Allergy/AdvReac Type Severity Reaction Status Date / Time Sulfa (Sulfonamide Allergy Severe Unknown Verified 06/17/25 21:31 Antibiotics) Opioid HPI Opioid Management Most Recent Pain and Opioid Data: Last Pain Scale 7 06/17/25, 21:31 Review of Systems ROS Constitutional Denies: fever or chills Eyes Denies: change in vision or blurry vision Ears, nose, mouth, and throat Reports: neck pain; Denies: throat pain or throat swelling Cardiovascular Denies: chest pain, palpitations, edema or swelling of feet/ankles Respiratory Denies: shortness of breath, cough or wheezing Gastrointestinal Denies: abdominal pain, nausea or vomiting Genitourinary Denies: painful urination Musculoskeletal Reports: neck pain; Denies: back pain, extremity pain or extremity swelling Integumentary/Breast Denies: rash, itching or redness Neurological Denies: headache, numbness in extremities, weakness in extremities, lack of coordination, dizziness or behavioral changes Psychiatric Denies: anxiety Endocrine Denies: excessive urination PFSH PFSH Social History Little interest or pleasure in doing things: not at all Feeling down, depressed, or hopeless: not at all Exam Narrative Exam Narrative: Nurses note and vital signs reviewed and patient is not hypoxic. General: The patient appears well and in no apparent distress. Patient is resting comfortably on cart. GCS = 15. Skin: Warm, dry, no pallor noted. Head: Normocephalic, atraumatic Neck: Supple, trachea mid-line, paravertebral cervical tenderness noted, no midline tenderness. C-collar in place, no lymphadenopathy. The patient has no step-offs or crepitus noted Eyes: PERRLA, EOMI ENT: TM's clear, no hemotympanum detected, no blood in posterior oropharynx Cardiovascular: Regular Rate and Rhythm Respiratory: Patient is in no distress, no accessory muscle use, lungs are clear to auscultation, no wheezing, rales or rhonchi Chest Wall: no tenderness, no flail chest, contusion, abrasion, or signs of trauma. Back: Back has no evidence of trauma, including contusion, abrasion, swelling or ecchymosis. The patient had no evidence of step-offs or creptitace noted. No tenderness to palpation. Negative straight leg raise bilaterally. Musculoskeletal: normal ROM, no tenderness, no swelling. Abrasion left middle finger MCP joint with dried blood present. Pulses at femoral, DP, PT, and popiteal were 2+ bilaterally. Moves all four extremities in all modalities with 5/5 strength. Symmetric physical trainer strength noted without pain GI: Normal bowel sounds, no tenderness to palpation, nontender hernia patient has notable surgical scars, no masses appreciated. No rebound, guarding, or rigidity noted. Neurological: Alert and oriented x4, normal equal physical trainer strength, normal speech, steady gait, normal motor, normal sensory. Psychiatric: Cooperative Constitutional Vital Signs, click to edit/add: Last Vital Signs Temp 98.5 F 06/17/25 21:31 Pulse 77 06/18/25 01:02 Resp 20 06/18/25 01:02 BP 119/78 06/18/25 01:02 Pulse Ox 98 06/18/25 01:02 O2 Del Method Room Air 06/18/25 01:02 Course Vital Signs Vital signs: Vital Signs Temperature 98.5 F 06/17/25 21:31 Pulse Rate 80 06/17/25 21:31 Respiratory Rate 19 06/17/25 21:31 Blood Pressure 152/87 H 06/17/25 21:31 Pulse Oximetry 95 06/17/25 21:31 Oxygen Delivery Method Room Air 06/17/25 21:31 Temperature 98.5 F 06/17/25 21:31 Pulse Rate 77 06/18/25 01:02 Respiratory Rate 20 06/18/25 01:02 Blood Pressure 119/78 06/18/25 01:02 Pulse Oximetry 98 06/18/25 01:02 Oxygen Delivery Method Room Air 06/18/25 01:02 MDM - Fall MDM Narrative Medical decision making narrative: Patient presents approximately 4-1/2 hours after a fall at home in which she struck his forehead. I do not appreciate any external evidence of trauma other than abrasion to his left hand. He reports slow developing neck pain after this fall. He initially reported a positive loss of consciousness but then on further questioning states this may have only been a second. Patient noted that he tripped, but with further questioning admitted that he was bending over and lost his balance striking his forehead. He denies any headache visual disturbance or nausea or vomiting. CT will be performed of the head and neck with c-collar in place pending results. Left hand abrasion nontender to the bone and full range of motion noted, wound will be cleansed and dressed by nursing staff and patient reports his tetanus is already up-to-date. Verbal and written close head injury instructions discussed patient's case turned over to Dr. Stafford at shift change Lab Data Labs: Lab Results 06/17/25 06/17/25 Range/Units 21:49 23:25 WBC 7.9 (4.0-11.0) 10^3/uL RBC 4.94 (4.70-6.10) 10^6/uL Hgb 15.7 (14.0-18.0) g/dL Hct 47.0 (42.0-54.0) % MCV 95.1 H (80.0-94.0) fL MCH 31.8 (25.9-34.0) pg MCHC 33.4 (29.9-35.2) g/dL RDW 13.5 (11.0-15.0) % Plt Count 201 (150-450) 10^3/uL MPV 11.0 (9.5-13.5) fL Neut % (Auto) 69.6 (43.0-75.0) % Lymph % (Auto) 17.1 L (20.5-60.0) % Shannon % (Auto) 10.8 (1.7-12.0) % Eos % (Auto) 1.3 (0.9-7.0) % Baso % (Auto) 0.8 (0.2-2.0) % Neut # (Auto) 5.5 (1.4-6.5) 10^3/uL Lymph # (Auto) 1.4 (1.2-3.8) 10^3/uL Shannon # (Auto) 0.9 H (0.3-0.8) 10^3/uL Eos # (Auto) 0.1 (0.0-0.7) 10^3/uL Baso # (Auto) 0.1 (0.0-0.1) 10^3/uL Abs Immat Gran (auto) 0.03 (0.00-0.03) 10^3/uL Imm/Tot Granulo (auto) 0.4 (0.0-0.5) % Sodium 141 (136-145) mmol/L Potassium 4.2 (3.5-5.1) mmol/L Chloride 103 (98-107) mmol/L Carbon Dioxide 30.3 (21.0-32.0) mmol/L Anion Gap 11.9 BUN 13.0 (7.0-18.0) mg/dL Creatinine 1.15 (0.70-1.30) mg/dL Est GFR ( Amer) >60 (>=60 mL/min/1.73m^2) Est GFR (Non-Af Amer) >60 (>=60 mL/min/1.73m^2) BUN/Creatinine Ratio 11.3 Glucose 331 H (74-106) mg/dL Calcium 9.2 (8.5-10.1) mg/dL POC Glucose 334 H (74-106) mg/dL Discharge Plan Discharge Chief Complaint: Fall Clinical Impression: Closed head injury, Neck pain, Odontoid fracture, Cervical spine fracture [facility] Date/Time: 06/18/25 01:13 Documented by User: Tobias Stafford MD 06/18/25 06:48 HPI HPI - Fall General Chief Complaint: Fall Stated Complaint: Fall Time Seen by Provider: 06/17/25 21:06 Related Data Home Medications ?Medication ?Instructions ?Recorded ?Confirmed atorvastatin 80 mg tablet 80 mg PO DAILY 05/26/25 06/17/25 empagliflozin 25 mg tablet 25 mg PO DAILY 05/26/25 06/17/25 (Jardiance) insulin glargine 100 unit/mL (3 35 unit subcut DAILY 05/26/25 06/17/25 mL) subcutaneous pen (Lantus Solostar U-100 Insulin) insulin lispro 100 unit/mL 1 sliding scale dose subcut TIDWM 05/26/25 06/17/25 subcutaneous pen (Humalog KwikPen (U-100) Insulin) metoprolol succinate 25 mg 25 mg PO DAILY 05/26/25 06/17/25 tablet,extended release 24 hr isosorbide mononitrate 60 mg 60 mg PO DAILY 06/17/25 06/17/25 tablet,extended release 24 hr rivaroxaban 20 mg tablet (Xarelto) 20 mg PO Q24H 06/17/25 06/17/25 Allergies Allergy/AdvReac Type Severity Reaction Status Date / Time Sulfa (Sulfonamide Allergy Severe Unknown Verified 06/17/25 21:31 Antibiotics) Opioid HPI Opioid Management Most Recent Pain and Opioid Data: Last Pain Scale 7 06/17/25, 21:31 PFSH PFSH Social History Little interest or pleasure in doing things: not at all Feeling down, depressed, or hopeless: not at all Exam Constitutional Vital Signs, click to edit/add: Last Vital Signs Temp 98.5 F 06/17/25 21:31 Pulse 77 06/18/25 01:02 Resp 20 06/18/25 01:02 BP 119/78 06/18/25 01:02 Pulse Ox 98 06/18/25 01:02 O2 Del Method Room Air 06/18/25 01:02 Course Vital Signs Vital signs: Vital Signs Temperature 98.5 F 06/17/25 21:31 Pulse Rate 80 06/17/25 21:31 Respiratory Rate 19 06/17/25 21:31 Blood Pressure 152/87 H 06/17/25 21:31 Pulse Oximetry 95 06/17/25 21:31 Oxygen Delivery Method Room Air 06/17/25 21:31 Temperature 98.5 F 06/17/25 21:31 Pulse Rate 77 06/18/25 01:02 Respiratory Rate 20 06/18/25 01:02 Blood Pressure 119/78 06/18/25 01:02 Pulse Oximetry 98 06/18/25 01:02 Oxygen Delivery Method Room Air 06/18/25 01:02 MDM - Fall MDM Narrative Medical decision making narrative: Patient presents approximately 4-1/2 hours after a fall at home in which she struck his forehead. I do not appreciate any external evidence of trauma other than abrasion to his left hand. He reports slow developing neck pain after this fall. He initially reported a positive loss of consciousness but then on further questioning states this may have only been a second. Patient noted that he tripped, but with further questioning admitted that he was bending over and lost his balance striking his forehead. He denies any headache visual disturbance or nausea or vomiting. CT will be performed of the head and neck with c-collar in place pending results. Left hand abrasion nontender to the bone and full range of motion noted, wound will be cleansed and dressed by nursing staff and patient reports his tetanus is already up-to-date. Verbal and written close head injury instructions discussed patient's case turned over to Dr. Stafford at shift change CT returns with fracture of C1 and the odontoid fracture. each nondisplaced. Discussed with Dr Nuñez Trauma surgery at [facility] and patient accepted in transfer. Lab Data Labs: Lab Results 06/17/25 06/17/25 Range/Units 21:49 23:25 WBC 7.9 (4.0-11.0) 10^3/uL RBC 4.94 (4.70-6.10) 10^6/uL Hgb 15.7 (14.0-18.0) g/dL Hct 47.0 (42.0-54.0) % MCV 95.1 H (80.0-94.0) fL MCH 31.8 (25.9-34.0) pg MCHC 33.4 (29.9-35.2) g/dL RDW 13.5 (11.0-15.0) % Plt Count 201 (150-450) 10^3/uL MPV 11.0 (9.5-13.5) fL Neut % (Auto) 69.6 (43.0-75.0) % Lymph % (Auto) 17.1 L (20.5-60.0) % Shannon % (Auto) 10.8 (1.7-12.0) % Eos % (Auto) 1.3 (0.9-7.0) % Baso % (Auto) 0.8 (0.2-2.0) % Neut # (Auto) 5.5 (1.4-6.5) 10^3/uL Lymph # (Auto) 1.4 (1.2-3.8) 10^3/uL Shannon # (Auto) 0.9 H (0.3-0.8) 10^3/uL Eos # (Auto) 0.1 (0.0-0.7) 10^3/uL Baso # (Auto) 0.1 (0.0-0.1) 10^3/uL Abs Immat Gran (auto) 0.03 (0.00-0.03) 10^3/uL Imm/Tot Granulo (auto) 0.4 (0.0-0.5) % Sodium 141 (136-145) mmol/L Potassium 4.2 (3.5-5.1) mmol/L Chloride 103 (98-107) mmol/L Carbon Dioxide 30.3 (21.0-32.0) mmol/L Anion Gap 11.9 BUN 13.0 (7.0-18.0) mg/dL Creatinine 1.15 (0.70-1.30) mg/dL Est GFR ( Amer) >60 (>=60 mL/min/1.73m^2) Est GFR (Non-Af Amer) >60 (>=60 mL/min/1.73m^2) BUN/Creatinine Ratio 11.3 Glucose 331 H (74-106) mg/dL Calcium 9.2 (8.5-10.1) mg/dL POC Glucose 334 H (74-106) mg/dL Discharge Plan Discharge Chief Complaint: Fall Clinical Impression: Closed head injury, Neck pain, Odontoid fracture, Cervical spine fracture [facility] Dis[facility] Date/Time: 06/18/25 01:13
[2025-06-17 21:44] VITALS: BP 152/86; PULSE 82; O2SAT 97
--- OUTSIDE RECORDS SUMMARY | 2025-06-17 21:47 | XMS_ITS | Clinical Summary ---
Author Organization [facility] Address [address] [place], [place] [address] Care Team Providers Care Sterile Process Tech Name Role Phone Orville Friedman Susan DO Primary Care Provider Sherice Washington(Historical) Unavailable + Lavonne Sarabia MD Unavailable [phone] Denita Escamilla DO Unavailable [phone] Allergies Active AllergyReactionsCriticalityNoted DateCommentsSulfa (Sulfonamide Antibiotics)Qdctryka99/01/2015 blew up like a balloon Medications MedicationSigDispense [...] leg with routine healing 03/18/2016Closed right ankle qqyfljjb22/10/2016Strain of right knee and leg 12/07/2015Intradural mass12/07/20150264Cwhapiaxfdob24/01/2015SHD (arteriosclerotic heart disease)09/27/2014Type II or unspecified type diabetes mellitus with other specified manifestations, sfcpvggqshvu73/01/3188Estmvtnolxarinmanoew70/01/2015 Htzqxeykrmns71/01/4258Bvqrgor40/01/2015Diabetes mellitusGERD (gastroesophageal reflux disease)Former smoker Overview (12/07/2015): smoked cigars rarely Family History Medical HistoryRelationCommentsCancerFatherdied at age 62HypertensionFatherCHF [Other]Motherdied at age 95RelationStatusCommentsFatherMother Social History Tobacco UseTypesPacks/DayYears UsedDateSmoking Tobacco: FormerCigars Tobacco Cessation:Counseling Given: Not Answered Comments:cigar smoking on occasion Alcohol UseStandard Drinks/WeekCommentsYes0 (1 standard drink = 0.6 oz pure alcohol)socialArea Deprivation IndexAnswerDate RecordedNational Score (1-100), lower number is lower tglz246303/04/2023State Score (1-10), lower number is lower yajr8593Data from: https://www.neighborhoodatlas.medicine.[facility].edu/. 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 on fileNot on fileNot on file Last Filed Vital Signs Vital SignReadingTime TakenCommentsBlood Niexfmky757/6606/16/2023 10:50 AM EST Bczsx120306/16/2023 10:50 AM VTXRcqxrfaerxs08.5 ??C (97.7 ??F)06/16/2023 9:41 AM ESTRespiratory Zeji151608/17/2022 10:50 AM ESTOxygen Cmwzzzcleo89%06/16/2023 10:50 AM ESTInhaled Oxygen Concentration--Hkunoa57.4 kg (175 lb)06/16/2023 9:41 AM WIQKlpbvf705.1 cm (5' 5 )06/16/2023 9:41 AM ESTBody Mass Index29.12108/17/2022 9:41 AM EST Plan of Treatment Health MaintenanceDue DateLast DoneCommentsAbdominal Aortic Aneurysm Screening 1955 1478VtU3U27/29/1959Diabetic Foot Exam1963Dilated Retinal Exam 1963Urine Albumin:Creatinine Ratio1963Annual PCP Team Chronic Disease Visit1971Anxiety Yqaeybutk52/29/1972Depression Bhluqccgd45/29/1972 Hepatitis C Mseicbjnn60/29/1972LDL Ovhganikmcj73/29/1972DTaP,Tdap,Td Vaccine (1 - Tdap)1972CT Prilohayxkky76/29/1999Cologuard (FIT-DNA)1998 Acskgemebvf59/29/1999Colorectal Cancer Nxprkztvy00/29/1999Fecal Occult Blood 07/27/19988882Mhnanctybvcxm96/29/1999RSV Vaccine (1 - Risk 50-74 years 1-dose series)2003Shingrix Vaccine (1 of 2)2003Pneumococcal Vaccine: 50+ (2 of 2 - PCV)Advance Directive Nbeavukjja40/01/2025Medicare Advantage Annual Wellness Visit5Covid-19 Vaccine ( - 2024- season) 5108/13/2020, 10/20/2020, 09/22/2020Influenza Vaccine (#1)2025 06/25/2022, 05/10/2018, 04/10/2016 Insurance Care Teams Team MemberRelationshipSpecialtyStart DateEnd Orville Friedman DO PCP - GeneralFamily Medicine11/18/15 Sherice Washington(Historical)MD ReferringFamily Medicine11/26/18 Lavonne Sarabia MD ReferringFamily Medicine02/16/20 Denita Escamilla DO [address] [place] [address] ReferringFamily Medicine02/09/23
--- OUTSIDE RECORDS SUMMARY | 2025-06-17 21:48 | XMS_ITS | Clinical Summary ---
Author Organization [facility] Address [address] [place] [address] Care Team Providers Care Gas Station Attendant Name Role Phone Orville Friedman DO Primary Care Provider [phone] Allergies Active AllergyReactionsCriticalityNoted UutqYfjylqaaUivsbbosxeNbaezfw09/13/2023 OssecpqjfWwppzbm37/13/2023Sulfa RoyvmtlghcnFlgpDll59/18/2023 Medications MedicationSigDispense QuantityRefillsLast FilledStart DateEnd DateStatus atorvastatin [...] Blood Gluc Sensor (FreeStyle Nan 2 Sensor) [facility] 08/10/2023ctive hydrOXYzine HCl (Atarax) 25 MG tablet 1 tablet as needed at bedtime Orally for 30 days08/10/2023ctive tacrolimus (Protopic) 0.03 % ointment Indications:Flexural atopic dermatitisApply topically in the morning and before bedtime. Apply to the face. 60 g ctive Active Problems No known active problems Resolved Problems ProblemNoted DateDiagnosed DateResolved DateAcquired hallux wuzaom1403/25/2023 03/25/2023trial aygqyfbkpdqb34arrett's zliefzxxh43/27/2023 03/25/2023lindness of left eyehange in bowel habits hanges in skin mgdoanp40hronic lmxnvmxixxdl75hronic vnwymlmk29iabetes cfeuvpks80iabetic mgzapvobng77iabetic peripheral neuropathy associated with type 2 diabetes supkaojl46/27/2023 03/25/20232910Xtaheqksg63Former vrdibc36 Overview (03/25/2023): smoked cigars rarely Gastroesophageal reflux mlyxmko12astroparesis03/25/2023 03/25/2023eneralized anxiety ddajgcax82Insomnia03/25/2023 03/25/2023Long term current use of ovusfdd47Memory impairment 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 bimalleolar fracture of right lower leg with routine jbabqtn38 Intradural massrteriosclerosis of coronary fxbyrj3409/27/2014 03/25/20237646Owsbdlfoucre15Essential ivhqkbjqxefe44/01/2015 03/25/20235642Hwfvzwi88 Encounters DateTypeDepartmentCare EfloMnfrbbgmwkb34/30/2025 9:20 AM EDTOffice Visit [facility] [address] [place] [address] Ifeanyi Norris DPM Capsulitis of metatarsophalangeal (MTP) joint of right foot (Primary Dx); Metatarsal deformity, right; Acquired deformity of right toe; Plantar plate injury, right, initial encounter; Diabetes mellitus due to underlying condition with diabetic polyneuropathy, unspecified whether nursing home insulin use (HCC); Pain due to onychomycosis of toenails of both feet03/28/2025amboo flowsheet [facility] [address] [place] [address] Ifeanyi Norris DPM 03/23/2025 9:20 AM EDTOffice Visit [facility] [address] [place] [address] Simon Butler MD Xerosis cutis (Primary Dx); Flexural atopic dermatitis; Chronic swwphtor13/25/2025amboo flowsheet [facility] [address] [place] [address] Simon Butler MD 03/23/2025Travelfrom Last 3 Months Family History Medical HistoryRelationNameCommentsHeart diseaseFatherHypertensionMotherRelation NameStatusCommentsFatherDeceasedMotherDeceased Social History Tobacco UseTypesPacks/DayYears UsedDateSmoking Tobacco: NeverSmokeless Tobacco: Never Tobacco Cessation:Counseling Given: Yes Alcohol UseStandard Drinks/WeekCommentsYes0 (1 standard drink = 0.6 oz pure alcohol)caffeine intake:soda popSex and Gender InformationValueDate RecordedSex Assigned at BirthNot on fileLegal SqdUdbp9309/10/2022 6:48 PM EDTGender Identity Not on fileSexual OrientationNot on file Last Filed Vital Signs Vital SignReadingTime TakenCommentsBlood Ukwaxdif365/8009 3:23 PM EDT Wvoeu4182 3:23 PM CVKIruiesuirfy06.2 ??C (97.1 ??F)08/06/2023 10:42 AM ESTRespiratory Fsgb768703/28/2025 9:14 AM EDTOxygen Saturation--Inhaled Oxygen Concentration--Xnglab70.5 kg (173 lb)03/28/2025 9:14 AM WPFAjgblv213.1 cm (5' 5 )03/28/2025 9:14 AM EDTBody Mass Index28.7903/28/2025 9:14 AM EDT Plan of Treatment DateTypeDepartmentCare Team (Latest Contact Info)Sqimmytpeml95/23/2025 9:00 AM ESTOffice Visit [facility] [address] [place] [address] Ifeanyi Norris DPM [address] [facility] [address] [place] [address] Health MaintenanceDue DateLast DoneCommentsCT Ebncaymrzjsl07/29/1956FIT-DNA 1955FIT1955FOBT1955 6885Pvymrzfwpaxgd60/29/1956neumococcal Vaccine: 65+ Years (2 of 2 - PCV)COVID-19 Vaccine (5 - season)/, 06/12/2021, 10/20/2020, Additional history existsInfluenza Vaccine (#1)/, 06/25/2022, 05/10/2018, Additional history ibrfdcRtcgrswuolq91olorectal Cancer Tdblyobyo61/06/2032 Procedures Procedure NamePriorityDate/TimeAssociated DiagnosisCommentsCOLONOSCOPYRoutine 06/03/2022 12:00 PM EST Other constipation Personal history of colonic polyps Change in bowel habit from Last 3 Months or Most Recently Relevant to Health Maintenance Results * Colonoscopy (06/03/2022 12:00 PM EST)Anatomical RegionLateralityModality EndoscopySpecimen (Source)Anatomical Location / LateralityCollection Method / VolumeCollection TimeReceived Time06/03/2022 12:00 PM EST Narrative 06/03/2022 12:00 PM EST PERFORMED AT [facility] LOCATION:[id number] Procedure Note CONVERSION, GENERIC - 11/12/2022 PERFORMED AT [facility] LOCATION:[id number] Authorizing ProviderResult TypeResult StatusPaul Leandro Wilkins DOENDOSCOPY PROCEDURE ORDERABLESFinal Result from Last 3 Months or Most Recently Relevant to Health Maintenance Insurance * Guarantor: Beny Dumontount TypeRelation to PatientDate of BirthPhone Billing AddressPersonal/YfwproQwdy18/29/1956 [facility] [place] [address] Care Teams Team MemberRelationshipSpecialtyStart DateEnd Orville Friedman DO [address] [place] [id number] PCP - [facility]01/13/23
--- OUTSIDE RECORDS SUMMARY | 2025-06-17 21:48 | XMS_ITS | Clinical Summary ---
Author Organization [facility] Address [address] [place] [address], [address] [place] [address] Care Team Providers Care Snuff Drier Name Role Phone Unavailable Primary Care Provider Unavailabl e Social History Tobacco UseTypesPacks/DayYears UsedDateSmoking Tobacco: Never AssessedSex and Gender InformationValueDate RecordedSex Assigned at BirthNot on fileLegal Sex Male08/08/2012 8:51 PM ESTGender IdentityNot on fileSexual OrientationNot on file Plan of Treatment Not on file
--- OUTSIDE RECORDS SUMMARY | 2025-06-17 21:48 | XMS_ITS | Patient Health Record ---
Author Organization [facility] Address [address] [place] [address] Care Team Providers Care Family Medicine Physician Assistant Name Role Phone Gerald Carranza Primary Care Provider [phone] Denita Arias Unavailable [phone] Allergies Allergen (clinical drug ingredient) Drug/Non Drug Allergy documented on EMR Reaction Allergy Type Onset Date Status semaglutide Ozempic stomach upset Drug Allergy ActivegabapentinGabapentinUnknownDrug AllergyActivemetforminMetforminUnknownDrug AllergyActivesulfacetamideSulfacetamideUnknownDrug AllergyActive Results Component Value Reference Range Flag Notes Troponin I High Sensitivity Reviewed date:12/05/2024 08:26:23 AM Interpretation: Performing Lab: Notes/Report: The Troponin units of report have been changed to meet the Chest Pain Accreditation requirement, element EC5.M1l2. Troponin units are changed from pg/ml to ng/L. Also, the decimal is removed and results are in whole numbers. Troponin I High Sensitivity 6 0-20 N Complete Blood Count Auto Diff Reviewed date:12/05/2024 08:26:40 AM Interpretation: Performing Lab:, [facility], [address] [place] Notes/Report:White Blood Count4.74.1-10.5 10*3/uLNUncorrected WBC4.74.1-10.5 10*3/uLNRed Blood Count4.863.90-5.60 10*6/zNOCocxannmrg63.313.0-17.0 g/dLN Edmuncbdch77.738.8-50.0 %NMean Corpuscular Burldf30.183.5-101 fLNMean Corpuscular Zlbijkscut12.427.5-35.2 pgNMean Corpuscular HGB Conc33.432.5-35.6 g/dLNRed Cell Distribution Width14.312.0-14.8 %NPlatelet Zoqmc087439-521 10*3/uL NMean Platelet Volume9.66.6-10.1 fLNNeutrophils % (Auto)57.7. %Lymphocytes % (Auto)28.2. %Monocytes % (Auto)11.2. %Eosinophils % (Auto)2.0. %Basophils % (Auto)0.9. %NRBC%0.10-0.5 /100{WBC}NNeutrophils # (Auto)2.71.8-7.7 10*3/uLN Lymphocytes # (Auto)1.31.00-4.8 10*3/uLNMonocytes # (Auto)0.50.0-0.8 10*3/uLN Eosinophils # (Auto)0.10.0-0.45 10*3/uLNBasophils # (Auto)0.00.0-0.2 10*3/uLN Monocyte Distribution Width18.950.00-20.00 %NProthrombin Time INR Reviewed date:12/05/2024 08:26:10 AM Interpretation: Performing Lab:, [facility], [address] [place] Notes/Report: REDRAW: PRIOR SAMPLE QNSProthrombin Time11.29.0-12.9 sN A hematocrit value greater than 55% may lead to inaccurate results in coagulation testing. Patients having hematocrit values >55% require a special collection tube for coagulation studies. Please contact the laboratory at [phone] for redraw instructions. INR1.0 INR Therapeutic Range [...] Reviewed date:12/05/2024 08:26:33 AM Interpretation: Performing Lab:, [facility], [address] [place] Notes/Report:Creatine Acjhqj77142-204 U/LNB-Type Natriuretic Peptide Reviewed date:12/05/2024 08:26:15 AM Interpretation: Performing Lab:, [facility], [address] Notes/Report:B-Type Natriuretic Yfyykbl70.05-100 pg/mLNBasic Metabolic Panel Reviewed date:12/05/2024 08:26:28 AM Interpretation: Performing Lab:, [facility], [address] [place] Notes/Report:Vxddiev61407-976 mg/dLH Random Glucose Reference Range is dependent on time and content of last meal. Glucose of more than 200 mg/dL in a nonstressed, ambulatory subject supports the diagnosis of Diabetes Mellitus. ADA recommended reference range Blood Urea Aolrhncg819-96 mg/zIGZloiqp408994-062 mmol/LNPotassium4.03.5-5.1 mmol/LN Hemolysis is present at a level that could interfere with the result. Contact lab if redraw is required Ddyibqrp08083-042 mmol/LNCarbon Idwwigq74.221.0-31.0 mmol/LNCalcium9.18.6-10.3 mg/dLNCreatinine0.900.70-1.30 mg/dLNEstimated GFR>60.0Anion Gap11.86.0-15.0 meq/LNCreatinine Clr Calc Ycxrafhj20.94Urinalysis Reviewed date:12/05/2024 08:26:45 AM Interpretation: Performing Lab:, [facility], [address] [place] Notes/Report: Name Collection Type:: Clean-Voided MidstreamColor,UrineLight-YellowYellow Appearance,UrineClearClearSpecificy [place],Urine1.0291.001-1.030NpH,Urine5.5 5.0-9.0NLeukocyte Esterase,UrineNegativeNegativeNitrite,UrineNegativeNegative Protein,UrineNegativeNegativeGlucose,Urine (UA)>=1000Normal mg/dLHKetones,Urine NegativeNegativeUrobilinogen,UrineNormalNormalBilirubin,UrineNegativeNegative Occult Blood,UrineNegativeNegativePSA Screen (Yearly) w/Reflex Reviewed date:11/15/2024 08:44:54 PM Interpretation: Performing Lab:, [facility], [address], [place] Notes/Report: Reason for Exam Prostate cancer screeningPSA Screen (Yearly) w/Reflex0.6600.000- 4.000 ng/mLN Serial tumor marker results determined by assays using different manufacturers or methods may not be comparable. 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 LDL Cholesterol Measured Reviewed date:11/15/2024 08:44:50 PM Interpretation: Performing Lab: Notes/Report: Reason for Exam History of atrial fibrillation Reason for Exam Mixed hyperlipidemia complications Reason for Exam Type 2 diabetes mellitus with unspecifiedLDL Cholesterol Eixswhnu460-760 mg/dLN LDL ATP III CLASSIFICATION LDL less than 100 mg/dL Optimal LDL 100-129 mg/dL Near or above optimal LDL 130-159 mg/dL Borderline high LDL 160-189 mg/dL High LDL greater than 189 mg/dL Very high Complete Blood Count Auto Diff Reviewed date:11/15/2024 08:45:23 PM Interpretation: Performing Lab:, [facility], [address], [place] Notes/Report: complications Reason for Exam Type 2 diabetes mellitus with unspecifiedWhite Blood Count4.5 4.1-10.5 10*3/uLNUncorrected WBC4.54.1-10.5 10*3/uLNRed Blood Count5.083.90-5.60 10*6/lQHNuclwjtwzc61.813.0-17.0 g/sOJGakwayxgrm58.138.8-50.0 %NMean Corpuscular Kgityr95.683.5-101 fLNMean Corpuscular Agqqiieumg18.127.5-35.2 pgNMean Corpuscular HGB Conc32.932.5-35.6 g/dLNRed Cell Distribution Width14.812.0-14.8 %NPlatelet Vcjvz846646-005 10*3/uLNMean Platelet Eoppej28.76.6-10.1 fLH Neutrophils % (Auto)60.0. %Lymphocytes % (Auto)25.3. %Monocytes % (Auto)11.7. % Eosinophils % (Auto)2.5. %Basophils % (Auto)0.5. %NRBC%0.10-0.5 /100{WBC}N Neutrophils # (Auto)2.71.8-7.7 10*3/uLNLymphocytes # (Auto)1.11.00-4.8 10*3/uLN Monocytes # (Auto)0.50.0-0.8 10*3/uLNEosinophils # (Auto)0.10.0-0.45 10*3/uLN Basophils # (Auto)0.00.0-0.2 10*3/uLNThyroid Stim Hormone w/Rflx Reviewed date:11/15/2024 08:45:00 PM [...] hyperlipidemia Reason for Exam History of atrial kphhzzglrzbpZldpytgyrmu592034-201 mg/dLL Chol less than 200 mg/dl low risk Chol 201-239 mg/dl borderline risk Chol 240 mg/dl and greater high risk HDL Ylkrctvppks0154-89 mg/dLN HDL CHOL ATP-III CLASSIFICATION Cardiovascular Risk HDL > or equal to 60 mg/dL LOW HDL < 40 mg/dL HIGH Triglyceride w/Kweyxr3856-287 mg/dLH TRIG ATP III CLASSIFICATION TRIG less than 150 mg/dL Normal TRIG 150-199 mg/dL Borderline high TRIG 200-500 mg/dL High TRIG greater than 500 mg/dL Very high Standard traceable to the Center for Disease Conrtrol and Prevention (CDC) test method. LDL Cholesterol,Ddpadqeoid014-365 mg/dLN LDL ATP III CLASSIFICATION LDL less than 100 mg/dL Optimal LDL 100-129 mg/dL Near or above optimal LDL 130-159 mg/dL Borderline high LDL 160-189 mg/dL High LDL greater than 189 mg/dL Very high VLDL MYJIPJWSACF73Ovxf/HDL Ratio3.2<5.0Comprehensive Metabolic Panel Reviewed date:11/15/2024 08:45:11 PM Interpretation: Performing Lab:, [facility], [place] Notes/Report: Reason for Exam Type 2 diabetes mellitus with unspecified complications Reason for Exam Mixed hyperlipidemia Reason for Exam History of atrial wgqgrmpwoataUeiysuo45330-503 mg/dLH Random Glucose Reference Range is dependent on time and content of last meal. Glucose of more than 200 mg/dL in a nonstressed, ambulatory subject supports the diagnosis of Diabetes Mellitus. ADA recommended reference range Blood Urea Tlfffmnx831-63 mg/dLNCreatinine1.010.70-1.30 mg/uLBSrmcrw425220-182 mmol/LNPotassium4.63.5-5.1 mmol/EFUlpmzghs88562-004 mmol/LNCarbon Lrycamu40.3 21.0-31.0 mmol/LNCalcium9.68.6-10.3 mg/dLNTotal Protein7.46.4-8.9 g/dLNAlbumin Level4.43.5-5.7 g/dLNGlobulin3.0Albumin/Globulin Ratio1.5Bilirubin,Total0.50.3- 1.0 mg/dLNAspartate Amino Gjhrcblimpa4265-03 U/LNAlanine Cumnbfmfsohqjzpx397-18 U/LNAlkaline Rpgkmvswkgi9968-176 U/LNEstimated GFR>60.0Anion Gap12.36.0-15.0 meq/LNA1C with Estimated Average Glu Reviewed date:11/16/2024 10:48:33 AM Interpretation: Performing Lab:, [facility], [place] Notes/Report: Reason for Exam Type 2 diabetes mellitus with unspecified complicationsHemoglobin A1C10.74.3-5.6 %H Increased risk for diabetes: 5.7 - 6.4 diabetes: >6.4 glycemic control for adults with diabetes: <7.0 Estimated Average Fsptfux561SlmyeKsy Creat Ratio,U Reviewed date:11/15/2024 08:45:30 PM Interpretation: Performing Lab:, [facility], [place] Notes/Report: Reason for Exam Type 2 diabetes mellitus with unspecified complicationsMicroalbumin, Urine1.50.0-1.8 mg/dLNCreatinine, Urine (Random)30.00 No reference range establishedMicroalbumin/Creatinine Ratio50.00.0-30.0 mg/gH 30-300 mg/g indicates an increased risk for diabetic nephropathy. Greater than 300 mg/g is consistent with clinical nephropathy. (Am. J. Kidney Disease 1995, 25:107) Hemoglobin A1c Reviewed date:09/14/2024 03:05:47 PM Interpretation: Performing Lab: Notes/Report: Hemoglobin A1c10.9%5 - 7.9 %Creatine Kinase Reviewed date:12/21/2024 09:14:33 PM Interpretation: Performing Lab:, [facility], [address], [place] Notes/Report:Creatine Qvboft3530-391 U/LNComprehensive Metabolic Panel Reviewed date:12/21/2024 09:14:39 PM Interpretation: Performing Lab:, [facility], [address], [place] Notes/Report:Jvnnvhw70829-213 mg/dLH Random Glucose Reference Range is dependent on time and content of last meal. Glucose of more than 200 mg/dL in a nonstressed, ambulatory subject supports the diagnosis of Diabetes Mellitus. ADA recommended reference range Blood Urea Miguapon572-28 mg/dLNCreatinine1.040.70-1.30 mg/oVEJsqowr242429-626 mmol/LNPotassium4.13.5-5.1 mmol/IRIhrthsqb12172-098 mmol/LNCarbon Lqfruqy68.9 21.0-31.0 mmol/LNCalcium8.88.6-10.3 mg/dLNTotal Protein6.86.4-8.9 g/dLNAlbumin Level4.13.5-5.7 g/dLNGlobulin2.7Albumin/Globulin Ratio1.5Bilirubin,Total0.70.3- 1.0 mg/dLNAspartate Amino Yrerosrbsgi6523-41 U/LNAlanine Owmnztjohvcgfwcl064-25 U/LNAlkaline Pomxebotcet8187-593 U/LNEstimated GFR>60.0Anion Gap10.26.0-15.0N Creatinine Clr Calc Vqhorjaa61.72Complete Blood Count Auto Diff Reviewed date:12/21/2024 09:15:10 PM Interpretation: Performing Lab:, [facility], [address] Notes/Report:White Blood Count4.64.1-10.5 [CFU]/mLNUncorrected WBC4.64.1-10.5 10*3/uLNRed Blood Count4.423.90-5.60 10*6/cMCPnjperngmy30.913.0-17.0 g/dLN Qhosepkypq01.538.8-50.0 %NMean Corpuscular Cdwpdh92.983.5-101 fLNMean Corpuscular Mcvcfxnumm05.527.5-35.2 pgNMean Corpuscular HGB Conc33.532.5-35.6 g/dLNRed Cell Distribution Width14.212.0-14.8 %NPlatelet Ddfuo413488-740 10*3/uL NMean Platelet Volume9.56.6-10.1 fLNNeutrophils % (Auto)58.5. %Lymphocytes % (Auto)23.3. %Monocytes % (Auto)15.1. %Eosinophils % (Auto)2.1. %Basophils % (Auto)1.0. %NRBC%0.10-0.5 /100{WBC}NNeutrophils # (Auto)2.71.8-7.7 10*3/uLN Lymphocytes # (Auto)1.11.00-4.8 10*3/uLNMonocytes # (Auto)0.70.0-0.8 10*3/uLN Eosinophils # (Auto)0.10.0-0.45 10*3/uLNBasophils # (Auto)0.00.0-0.2 10*3/uLN Monocyte Distribution Width17.690.00-20.00 %NUrinalysis Reviewed date:12/21/2024 09:14:45 PM Interpretation: Performing Lab:, [facility], [address] Notes/Report: Name Collection Type:: Clean-Voided MidstreamColor,UrineLight-YellowYellow Appearance,UrineClearClearSpecificy [place],Urine1.0331.001-1.030HpH,Urine5.0 5.0-9.0NLeukocyte Esterase,UrineNegativeNegativeNitrite,UrineNegativeNegative Protein,UrineNegativeNegative mg/dLGlucose,Urine (UA)>=1000Normal mg/dL Ketones,UrineNegativeNegativeUrobilinogen,UrineNormalNormal mg/dLBilirubin,Urine NegativeNegativeOccult Blood,UrineNegativeNegativeTroponin I High Sensitivity Reviewed date:12/21/2024 09:14:28 PM Interpretation: Performing Lab: Notes/Report: The Troponin units of report have been changed to meet the Chest Pain Accreditation requirement, element EC5.M1l2. Troponin units are changed from pg/ml to ng/L. Also, the decimal is removed and results are in whole numbers.Troponin I High Sensitivity4 0-20N Reason For Referral Reason PT N/S APPT T2DM u ncontrolled - [facility] Diagnosis 1 Type 2 diabetes emily itus with unspecified complications (E11.8) Referral Organization [facility] Referring Provider First Name Denita Referring Provider Last Name Juana Referring Provider [facility] ctbethany Referred Provider [facility]ABET[facility]NA[facility] M[facility], . Referred Provider Specialty Diabetes Man agement Referral Priority Routine Reason *FAXED 12/27 uncontr olled T2DM, missed last apt was in hospital, side effects to many meds and diet uncontrolled Diagnosis 1 Type 2 diabetes emily itus with unspecified complications (E11.8) Referral Organization [facility] Referring Provider First Name Denita Referring Provider Last Name Juana Referring Provider [facility] ctbethany Referred Provider [facility], . Referred Provider Specialty Diabetes Edu cator General Notes Mary Polanco 2024 01:06:01 PM >[facility] CC DECLINED REFERRAL DUE TO N/S. Referral Priority Routine Reason *FAXED 01/13 - FAXED REFFERAL UPDATE 04/13 Left knee sprain x1 week, no fracture on XR Diagnosis 1 Pain, joint, knee, l eft (M25.562) Referral Organization [facility] Referring Provider First Name Gerald Referring Provider Last Name Dillon Referring Provider [facility] cherelle Referred Provider [facility], [facility] Referred Provider Specialty Physical The rapist Referral Priority Routine Reason SCHEDULED 08/01/25 A taxia, essential tremors, micrographia x3 months; Father with Parkinson's Diagnosis 1 Ataxia (R27.0) Referral Organization [facility] bethany Referring Provider First Name Gerald Referring Provider Last Name Nainashantel Referring Provider Speciality [facility] cherelle Referred Provider [facility], . Referred Provider Specialty Neurology Referral [...] 7Not-Taking/PRN Insulin Glargine Solostar 100 UNIT/ML Solution Pen-tbvjhyzr96 units Subcutaneous dailyActiveFreeStyle Nan 2 Sensor - Miscellaneousup to 3 times a day; Duration: 28 daysActivePen [place] 5/16 31G X 8 MM MiscellaneousUSE ONE NEEDLE TO INJECT INSULIN ONCE DAILY; Duration: 30 daysActiveNitroglycerin 0.4 MG Tablet Sublingualas directed SublingualNot-Taking/PRNIsosorbide Mononitrate ER 120 MG Tablet Extended Release 24 HourOral; Duration: 30 DaysActiveOlopatadine HCl 0.2 % Solution1 drop into each eye Ophthalmic Once a day; Duration: 30 days 11/03/2024Not-Taking/PRNLantus SoloStar 100 UNIT/ML Solution Pen-fmwoocvq74 units Subcutaneous dailyActiveNystatin 780568 UNIT/ML Suspension4 mL Mouth/Throat Four times a [...] 90 daysRequesting refill for OneTouch Ultra Test Nljvhx775Active Immunizations Vaccine Route Administration Date Status Comme nts zzz do not use FLUARIX 3 YRS AND OLDER Adult IM Intramuscular 04/10/2016 Administered PNEUMOVAX 68Cydrrwl36/01/2019AdministeredMODERNA BIVALENTIM Intramuscular 06/25/2022dministeredMODERNAIM Jacjerfwcwjkz92/27/2021dministeredMODERNAIM Mmzzfmgxbyeel11/24/2021dministeredMODERNAIM Ciznunngomxuc19/15/2021dministered BOOSTERInfluenza-AdultIM Hgvltpudnhgkq49/12/2018AdministeredInfluenza 3+ PRIVATE IM Vibkcucrsfgcy98/28/2022dministered Social History Tobacco Use: Social History Observation [...] work (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 Stress is when someone feels tense, nervous, anxious, or cant sleep at night because their mind is troubledA little bitIn the past year have you spent more than 2 nights in a row in a shelter, halfway, intermediate center, orjuvenile correctional facility?NoAre you a refugee?NoWhat [...] InterpretationNegativeTobacco Use:Social InfoQuestionAnswerNotesTobacco Control (Standard)Tobacco use:NonsmokerSection Notes: no tobacco, history of EtOH - approx [...] SELDOM, 1 BEER A WEEK, occ cigars 11/13/15: Denies tobacco use, Very little etoh, [...] Disorder due to type 2 diabetes mellitus (677608042) Type 2 diabetes mellitus with unspecified complications (E11.8) ActiveconfirmedProblemMixed hyperlipidemia (681761089)Mixed hyperlipidemia (E78.2)ActiveconfirmedProblemInsomnia (182672821)Other insomnia (G47.09)Active confirmedProblemEssential hypertension (91878749)Essential (primary) hypertension (I10)ActiveconfirmedProblemTypical atrial flutter (967146549) Typical atrial flutter (I48.3)ActiveconfirmedProblemGastroparesis (881924698) Gastroparesis (K31.84)ActiveconfirmedProblemAbnormal gait (13627382)Unsteadiness on feet (R26.81)ActiveconfirmedProblemLong-term current use of insulin (724795343)long-term (current) use of insulin (Z79.4)ActiveconfirmedProblem Atrial fibrillation (80190002)Atrial fibrillation with RVR (I48.91)Active confirmedProblemDiabetic nephropathy (593923507)Diabetic nephropathy (E11.21) ActiveconfirmedProblemInsomnia (995883604)Insomnia, unspecified type (G47.00) ActiveconfirmedProblemDysphagia (68275900)Dysphagia, unspecified type (R13.10) ActiveconfirmedProblemCoronary artery disease (95294365)Coronary artery disease (I25.10)ActiveconfirmedProblemPeripheral neuropathy (986620560)Peripheral neuropathy (G62.9)ActiveconfirmedProblemHyperglycemia (73417322)Hyperglycemia (R73.9)ActiveconfirmedProblemSevere recurrent major depression without psychotic features (09148792)Severe episode of recurrent major depressive disorder, without psychotic features (F33.2)ActiveconfirmedProblemChronic pancreatitis (900294196)Chronic pancreatitis, unspecified pancreatitis type (K86.1)Active confirmedProblemMemory impairment (949327997)Memory impairment (R41.3)Active confirmedProblemAtaxia (01046460)Ataxia (R27.0)ActiveconfirmedProblemStented coronary artery (122339612)Stented coronary artery (Z95.5)ActiveconfirmedProblem Generalized anxiety disorder (69199354)NARAYAN (generalized anxiety disorder) (F41.1)ActiveconfirmedProblemBlind left eye (disorder) (471611376)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)ActiveconfirmedProblemBarrett's esophagus (282997306)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)ActiveconfirmedProblemModerate recurrent major depression (25391905)MDD (major depressive disorder), recurrent episode, moderate (F33.1)ActiveconfirmedProblemGastroesophageal reflux disease (181969261)Gastroesophageal reflux disease, unspecified whether esophagitis present (K21.9)Activeconfirmed Vital Signs Heart Rate 89 /min 05/08/2025 Uimvgytywes47.8 degrees Aisrxbradm15/10/2025Respiratory Rate18 /min05/08/2025 Fvejhwco44 %05/08/2025lood pressure feasxwarn95 mm Hg05/08/20258093Zjqmeu87.5 in 05/08/2025lood pressure rrqjuzgx268 mm Hg05/08/20256486Kvpszc228 lbs107/08/2024MI 26.87 kg/m205/08/2025 Encounters Encounter Location Date Provider Diagnosis [facility] [address] [place] [address] 06/28/2024 [facility] [place] [address] [facility] [place] [address]/12/2024[facility] [place] [address]/[facility] [place] [address]/04/2025[facility] [place] [address]/[facility] [place] [address]/[facility] CenterRizzNorthern [facility] Rehabilitation Hospitalk[address] [place] [address]/[facility] [address] [place] [address]/ [facility] CenterRiLowell [facility] [address] [place] [address]/[facility] [address] [place] [address]/[facility] CenterRiLowell General Hospital Health [address] [place] [address]/[facility] [address] [place] [address]/[facility] Type 2 diabetes mellitus with unspecified complications E11.8[facility] [address]profpt[address] [place] [address]/[facility] Alinbykh[address] [place] [address]/[facility] [place] [address]/ [facility] Mg[address]cdlq[address] [place] [address] 04/24/2025[facility] [address] [place] [address]/[facility] CenterRizzoType 2 diabetes mellitus with unspecified complications E11.8 ; Seborrheic dermatitis L21.9 ; Acutenon-recurrent sinusitis, unspecified location J01.90 and Stented coronary artery Z95.5[facility] [address] [place] [address]/04/2025Kaitn zzzRizzoType 2 diabetes mellitus with unspecified complications E11.8[facility] Cy[address]xmtm[address] [place] [address]/01/2025Kaitlyn zzzRizzoAllergic conjunctivitis of both eyes H10.13 and Type 2 diabetes mellitus with unspecified complications E11.8[place] [address] [place] [address]/Kaitlyn zzzRizzoType 2 diabetes mellitus with unspecified complications E11.8 ; Other insomnia G47.09 ; History of atrial fibrillation Z86.79 ; Prostate cancer screening Z12.5 and Mixed hyperlipidemia E78.2F[address] [place] [address] 05/08/2025arry MasinAbscess of finger of right hand L02.511 ; Ataxia R27.0 and Type 2 diabetes mellitus with unspecified complications E11.[address] [address]/5Barry MasinPain, joint, knee, left M25.562 ; Skin rash R21 and Medication refill Z76.[address] [address]/Kaitlyn zzzRizzoType 2 diabetes mellitus with unspecified complications E11.8 ; Other insomnia G47.09 ; History of atrial fibrillation Z86.79 and Mixed hyperlipidemia E78.2FPh[place] [address] [place] [address] 5Barry MasinEssential (primary) hypertension I10 and Type 2 diabetes mellitus with unspecified complications E11.8 Assessments Encounter Date Diagnosis (ICD Code) Assessment Notes Treatment Notes Treatment Clinical Notes Section Notes 05/08/2025 Abscess of finger of right hand (ICD-10 - L02.511) Open wound with purulent discharge and minimal bleeding to right index finger dorsal PIP joint withsurrounding erythema and possible mild surrounding warmth. Expressed to Mr Dumont the concern for possible septic arthritis and [...] appointment. Pt understands and agrees with plan. 09/14/2024Type 2 diabetes mellitus with unspecified complications (ICD-10 [...] and was in agreement with the plan. 11/03/2024llergic conjunctivitis of both eyes (ICD-10 - H10.13)Patient with allergic conjunctivitis of both eyes exacerbated [...] in insulin regimen. Also placed referral to offender job retention specialist since we are running out of [...] 200s to 300s. Also placed referral to offender job retention specialist since we are running out of [...] diabetes mellitus with unspecified complications (ICD-10 - E11.8)04/20/2025Type 2 diabetes mellitus with unspecified complications (ICD-10 - E11.8)04/20/2025 Essential (primary) hypertension (ICD-10 - I10)01/12/2025Skin rash (ICD-10 - R21)Pt reports several months [...] seen - pt understands and agrees with plan.01/12/2025Pain, joint, knee, left (ICD-10 - M25.562)71 M [...] for knee pain if no improvement is seen.10/07/2024Type 2 diabetes mellitus with unspecified complications (ICD-10 [...] decreasing sugary pop intake. Also gave him script for glucometer for backup when he is out of [email or web address] Nan sensors. He is aware of the dangersof high blood sugar. Discussed red flag symptoms that would warrant urgent evaluation. Patient voiced understanding and was in agreement with the plan.01/12/2025Medication refill (ICD-10 - Z76.0)Pt requesting refill for his Onetouch Ultra 2 glucometer strips - Rx placed to [facility].05/08/2025Type 2 diabetes mellitus with unspecified complications (ICD-10 [...] insulin pending TID use and post-prandial sugar levels. 12/16/2024Other insomnia (ICD-10 - G47.09)Patient with insomnia and sleep schedule from typically 3 AM to 11 AM. Discussed sleep hygiene. Will continue low dose melatonin for now and discussed taking it earlier on in the night so he can try to fall asleep earlier.11/03/2024Type 2 diabetes mellitus with unspecified complications (ICD-10 [...] sees me next. Also discussed referral to offender job retention specialist since we are running out of options for him. Discussed red flag symptoms that would warrant urgent evaluation. Patient voiced understanding and was in agreement with the plan.11/15/2024History of atrial fibrillation (ICD-10 - Z86.79)Patient with [...] understanding and was in agreement with the plan.09/14/2024ute non- recurrent sinusitis, unspecified location (ICD-10 - J01.90)Patient with [...] voiced understanding and was in agreementwith the plan.09/14/2024Stented coronary artery (ICD-10 - Z95.5) Patient is on Xarelto prescribed by insulation cutter for stented coronary ateries. He stopped taking itdue to superficial skin bleeding the last few days. Highly recommended he restart taking this and let his insulation cutter know GI that he has been off [...] 05/08/2025 XR hand RT min 3V* 05/08/2025 Insurance Providers Payer Name Payer Address Payer Phone Subscriber Number Group Number Insured Name Patient Relationship to Insured Coverage Start Date Coverage End Date [facility] [place] [address] [place] [phone] [id number] BRITT DUMONT Self - patient is the insured 3 [employer] MEDICAID SEC TO [employer] [address] [place] [id number], TERRYSelf - patient is the [id number] [address] [id number] SANJIV DUMONTelf - patient is the [id number] 2018[employer] [address] [place] [id number], TERRYSelf - patient is the [id number] Medical (General) History Medical History History ICD Code GERD 1970's HTN Sleep Apnea - doesn''''t wear mask, claustophobicNeuropathy - bilateral legs 2000sosteopeniadepression 1979''''sRotator cuff tearHyperlipidemia ArthritisCoronary artery disease w stents- LysterA-fibCoronary artery disease involving blackfeet coronary artery of blackfeet heart without angina coiltouaL92.10 Type 2 diabetes mellitus with unspecified yfnyoiqjrxohcF19.8Barrett's Esophagus KgfuvcknnF27.10Unspecified fracture of lower end of left tibia, initial encounter for closed rvppmtdgO55.302AGarbled gfuaiuL71.89Dysphagia, unspecified typeR13.10Diabetes jhezhquhT79.9Type 2 diabetes mellitus with diabetic autonomic (poly)ihidsznledK57.06EdyzigsbxodsK55.5Major depressive disorder, single episode, hyvncqhelofC30.9High xrqmggttnismuI74.1Internal derangement of right kneeM23.90YowqbudeaD94.10Osteoarthritis of right sternoclavicular crllaQ76.011 Primary osteoarthritis of right kneeM17.11Surgical History Surgery Date(Month/Year) hernia exploratory lap - no findings EGD 1989 tonsillectomy Heart cath w 2 stentsfeb 2012Heart Cath with placement of 2 more stents.2013Heart Cath with stent cjimcyyxj29/2018BIOPSY OF THE JKRIMC52/2020Cataract extraction-OD08/2020Heart stent /2024Heart cath12/07/24Hospitalization History Reason Date(Month/Year) took wrong DM medication 2009 A-FIB 05/2024 A FIB 05/22 a fib 04/21 CAD, Angina 03/2018 Atrial Fib. 09/24/2016
--- OUTSIDE RECORDS SUMMARY | 2025-06-17 21:48 | XMS_ITS | Clinical Summary ---
Author Organization [facility] Address [address] [place] [address] Phone Care Team Providers Care Snap Shearer Name Role Phone Bethanie Meza MD Unavailable Denita Escamilla Unavailable Generic Provider, No Assigned Pcp Primary Car e Provider Unavailable Allergies Active AllergyReactionsCriticalityNoted OdhuHojwfejxYwlkmfjoqHnbxa42/18/2024 nightmares FgsjulqarqBeedaub20/14/6681VreyfrjmtubWpbht26/18/2024 nightmares MetforminDiarrhea,Nluofyl7009/09/2022Sulfa (Sulfonamide Antibiotics)Swelling, Ozwnkwb3410/12/2023 Medications MedicationSigDispense QuantityRefillsLast FilledStart DateEnd DateStatus empagliflozin [...] 24 hr capsule Indications:Coronary artery disease of ho-chunk artery of ho-chunk heart with stable angina pectorisTake 1 capsule [...] artery disease involving coronary bypass graft of ho-chunk heart with unstable angina pectoris (Multi)5Active isosorbide mononitrate ER (Imdur) 60 mg 24 hr tablet Indications:Unstable angina (Multi)Take 1 tablet (60 mg) by mouth once daily. Do not crush or chew. 90 tablet ctive aspirin 81 mg chewable tablet Indications:Coronary artery disease involving coronary bypass graft of ho-chunk heart with unstable angina pectoris (Multi)Chew and [...] Problems ProblemNoted DateDiagnosed DateAtherosclerotic heart disease of ho-chunk coronary artery without angina kzymudzi83/18/2025Rash due to dmynybd1002/13/2025Encounter to discuss test ufsdggk2801/30/2025MI 28.0-28.9,adult01/30/2025Maculopapular rash 01/30/2025Hospital discharge follow-up01/30/20256269Qfbvbjfuzypldm83/23/2025bnormal electrocardiogram (ECG) (EKG)11/18/2024trial fibrillation, currently in sinus lmpxgc8307/29/2024MI 29.0-29.9,adult05/20/2024High risk medication use05/20/2024 Family history of atrial ikptohy4105/20/2024Medication course qtubbqb1305/20/2024 Atrial msyvpzy6305/20/2024oronary artery disease of ho-chunk artery of ho-chunk heart with stable angina /18/2024 Assessment & Plan (01/29/2024 2:29 PM EDT): October 23, 2023 elective cardiac cath and subsequent coronary intervention PLB PCI/[place] 3.0 x 18 mm Mid RCA 50% [...] cardiac cath and subsequent coronary intervention PLB PCI/[place] 3.0 x 18 mm Mid RCA 50% [...] without any type of problem. Leg weakness, juomabcpn52/18/2024 Assessment & Plan (12/16/2023 1:42 PM EDT): Reports progressive worsening leg weakness, no real true claudication symptoms. No open wounds Figueroa's esophagus without ydljvgyeo65/27/2024resence of stent in coronary elxxji1610/24/2023Shortness of wyeoox8710/24/2023Never smoked wouavfn9310/15/2023 Nrzsluqegyqway36/15/2024 Assessment & Plan (01/29/2024 2:28 PM EDT): Tolerating high intensity statin Assessment & Plan (12/16/2023 1:38 PM EDT): Tolerating high intensity statin Angina, class III10/12/2023 Assessment & Plan (12/16/2023 1:39 PM EDT): Continues with exertional chest pain symptoms after walking one quarter of a mile, is not utilizingnitroglycerin. Essential gtunmnxxitoy84/15/2024 Assessment & Plan (01/29/2024 2:28 PM EDT): Optimal in office Assessment & Plan (12/16/2023 1:39 PM EDT): Optimal in office Type 2 diabetes mellitus, without long-term current use of xxntcdb4910/12/2023 Assessment & Plan (12/16/2023 1:41 PM EDT): On statin/ARB Reports most recent hemoglobin A1c 8 something Aortic valve ydcqxpom35/15/2024Unstable itauga0210/12/2023 Resolved Problems ProblemNoted DateDiagnosed DateResolved DateBMI 31.0-31.9,adult10/15/2023 05/20/2024 Assessment & Plan (01/29/2024 2:29 PM EDT): Reviewed the merits of healthy lifestyle choices on overall cardiovascular health. Assessment & Plan (12/16/2023 1:41 PM EDT): Reviewed the merits of healthy lifestyle choices on overall cardiovascular health. Angina pectoris, rdwiyhne97 Immunizations ImmunizationAdministration DatesNext DueFlu vaccine, trivalent, preservative [...] InformationValueDate RecordedSex Assigned at BirthNot on fileLegal XrwZlwy44/26/2022 6:36 PM ESTGender IdentityNot on file Sexual OrientationNot on file Last Filed Vital Signs Vital SignReadingTime TakenCommentsBlood Nxfmwpfx116/6808 9:53 AM EDT Pwbue561002/13/2025 9:53 AM IVERpatfhmrblx99.9 ??C (96.6 ??F)10/23/2023 9:09 AM EDTRespiratory Muhp910610/23/2023 12:50 PM EDTOxygen Jddelhfdlk62%10/23/2023 12:50 PM EDTInhaled Oxygen Concentration--Nxunbu48.6 kg (171 lb)02/13/2025 9:53 AM EDT Ackdzc150.1 cm (5' 5 )02/13/2025 9:53 AM EDTBody Mass Index28.46002/13/2025 9:53 AM EDT Plan of Treatment DateTypeDepartmentCare Team (Latest Contact Info)Blepdgbrnng15/19/2026 9:45 AM ESTOffice Visit [facility] [address] [facility] [address] [place] [address] Zahida Stern MD [address] [facility] [address] [place], [place] [address] Health MaintenanceDue DateLast DoneCommentsCT Xafvabveybhb91/29/1954iabetes: Hemoglobin A1C1953iabetes: Urine Protein Zhbejnqid31/29/1954FIT-DNA (Cologuard)1953FIT1953Lipid Panel1953Medicare Annual Wellness Visit (AWV)1955 8798Hmnbqynlwfnzl10/29/1954TSH Level1953MMR Vaccines (1 of 1 - Standard series)1954Diabetes: Retinopathy Zgzyoskeo62/29/1964 Hepatitis C Tgxrkwtwx40/29/1972DTaP/Tdap/Td Vaccines (1 - Tdap)1975RSV High Risk: (Elderly (60+) or Population) (1 - Risk 50-74 years 1-dose series)2003Zoster Vaccines (1 of 2)2003Pneumococcal Vaccine (2 of 2 - PCV)COVID-19 Vaccine (4 - season)2025 06/25/2022, 06/12/2021, 10/20/2020, Additional history existsInfluenza Vaccine (#1)510/, 06/25/2022, 05/10/2018, Additional history existsEGD /10/2024, 10/17/20226642Cjiczviitxw05/06/203212/11/2021, 06/03/2022 Colorectal Cancer Yivuuohsk65/06/2032Irritable Bowel SyndromeDiscontinued 06/03/2022HIB VaccinesAged OutNo longer eligible [...] ImplantedTypeAreaManufacturerDevice IdentifierShelf Expiration DateModel / Serial / Jim Calderon Herve, 3.00 X 18rx - [id number] Implanted:Qty: 1 on 10/23/2023 by [facility] StentN/A: CoronaryMEDTRONIC [id number] / / [id number] Insurance MemberSubscriberPlan / Payer (Effective 2023-Present)Name:Beny Dumont Relation to Subscriber:SelfName:Beny Dumont Payer ID:[id number] (NAIC) Group ID:[id number] Type:Not on file Address: [place] [phone] * Guarantor: Valerio Dumont TypeRelation to PatientDate of BirthPhone Billing AddressAnderson [facility]/AuynqfWyqx62/29/1956 [facility] [place] [address] Advance Directives For more information, please contact: [phone] (Available ) * Full Code (Latest Code Status on File) Date ActivatedDate InactivatedComments10/23/2023 8:54 AMQuestionAnswerComments Plan of Care:* Code Status Discussion Not Completed Decision Maker:* Provider Rationale:* Patient condition does not warrant discussion Care Teams Team MemberRelationshipSpecialtyStart DateEnd Date Generic Provider, No Assigned PcpMD NONE [facility] [place] [address] PCP - GeneralGeneral Practice11/18/24 Bethanie Meza MD [address] [facility] [address], [address] [place] [address] CardiologistElectrophysiology07/22/24 Denita Escamilla [address] [place] [address] Referring PhysicianBaker [facility] Hospital Medicine07/25/24
--- NOTE | 2025-06-17 21:56 | PC.NURSE ---
Skin tear to left hand cleansed with NS and covered with Telfa and secured with kerlex.
[2025-06-17 23:30] VITALS: BP 133/74; PULSE 75; O2SAT 97
[2025-06-17 23:46] LABS: Hematocrit 47.0 % (42.0-54.0); Hemoglobin 15.7 g/dL (14.0-18.0); Immature Granulocytes Abs Auto 0.03 10^3/uL (0.00-0.03); Immature Granulocytes Pct Auto 0.4 % (0.0-0.5); Lymphocytes Absolute Auto 1.4 10^3/uL (1.2-3.8); Mean Corpuscular HGB Conc 33.4 g/dL (29.9-35.2); Mean Corpuscular Hemoglobin 31.8 pg (25.9-34.0); Mean Corpuscular Volume 95.1 fL (80.0-94.0); Platelet Count 201 10^3/uL (150-450); Red Blood Count 4.94 10^6/uL (4.70-6.10); White Blood Count 7.9 10^3/uL (4.0-11.0)
[2025-06-17 23:51] LABS: Anion Gap 11.9; Blood Urea Nitrogen 13.0 mg/dL (7.0-18.0); Calcium 9.2 mg/dL (8.5-10.1); Carbon Dioxide 30.3 mmol/L (21.0-32.0); Chloride 103 mmol/L (98-107); Estimated GFR (African America >60 (>=60 mL/min/1.73m^2); Estimated GFR (Non-African Ame >60 (>=60 mL/min/1.73m^2); Glucose 331 mg/dL (74-106); Potassium 4.2 mmol/L (3.5-5.1); Sodium 141 mmol/L (136-145)
[2025-06-18 01:02] VITALS: BP 119/78; PULSE 77; O2SAT 98
== END 2025-06-18 01:13 | disposition short-term general hospital (02) ==
PROVIDERS: Emergency Provider Internal Medicine
DX: S12.112A Nondisplaced Type II dens fracture, initial encounter for closed fracture (principal); S12.001A Unspecified nondisplaced fracture of first cervical vertebra, initial encounter for closed fracture; S09.8XXA Other specified injuries of head, initial encounter; W18.39XA Other fall on same level, initial encounter; Z79.01 Long term (current) use of anticoagulants; M54.2 Cervicalgia
CPT/HCPCS: 36415; 70450; 72125; 76376; 80048; 85025; 99284